=== PATIENT | female | born 1985 | race Caucasian/White ===

== ENCOUNTER 2024-03-23 08:22 | Outpatient (CLI) | payer BC, SELFPAY | END 2024-03-23 08:23 | disposition home or self-care (01) | LOC: NFLDREF 03-27 14:17 | PROVIDERS: Visit Provider Obstetrics & Gynecology | DX: Z34.92 Encounter for supervision of normal pregnancy, unspecified, second trimester (principal) | CPT/HCPCS: 82951; 82952 ==

== ENCOUNTER 2024-03-24 12:50 | Outpatient (CLI) | payer BC, SELFPAY ==
--- NOTE | 2024-03-24 13:00 | CRLHL7_ITS ---
For Patients: As a result of the Century Cures Act, medical imaging exams and procedure reports are released immediately into your electronic medical record. You may view this report before your referring provider. If you have questions, please contact your health care provider. INDICATION: Hypertension TECHNIQUE: Real time puckett scale imaging of the fetus was performed. COMPARISON: None FINDINGS: Sonographic imaging demonstrates a single living intrauterine gestation. Fetus demonstrates a regular cardiac rate of 147 beats per minute. Fetus has a vertex position. The placenta lies anteriorly. Amniotic fluid volume appears normal and there is a single deepest pocket of 4.3 cm. The estimated weight is 2339gm which lies at the 81st %. BPD 73rd percentile. HC 55th percentile. AC 89th percentile. FL 64th percentile. The fetus was active and demonstrated normal breathing movements. There was normal flexion and extension of the trunk and extremities. IMPRESSION: Normal biophysical profile score 8/8. Sonographic gestational age 34 weeks 0 days and sonographic due date 05/05/2024. Sonographic age 9 days ahead of the clinical age. Estimated weight 81st percentile. Abdominal circumference 89th percentile. Dictated by Tonio Llanes MD @ 03/27/2024 6:51:06 AM (Electronically Signed)
== END 2024-03-24 12:51 | disposition home or self-care (01) ==
LOC: US 12:51
PROVIDERS: Visit Provider Obstetrics & Gynecology
DX: O10.913 Unspecified pre-existing hypertension complicating pregnancy, third trimester (principal); O09.523 Supervision of elderly multigravida, third trimester; Z3A.34 34 weeks gestation of pregnancy
CPT/HCPCS: 76816; 76819

== ENCOUNTER 2024-04-07 07:17 | Outpatient (CLI) | payer BC, SELFPAY ==
--- NOTE | 2024-04-07 07:15 | CRLHL7_ITS ---
For Patients: As a result of the Century Cures Act, medical imaging exams and procedure reports are released immediately into your electronic medical record. You may view this report before your referring provider. If you have questions, please contact your health care provider. Indication: Gestational diabetes mellitus and hypertension Technique: Sonography of the gravid uterus was performed. The study was limited to a standard biophysical profile study as described below Comparison: March 24, 2020 Findings: There is a single living intrauterine gestation that is vertex. The cervix was not specifically visualized on this study. The single deepest pocket is 4.1 centimeters. The placenta is anterior. heart rate is 157 beats per minute which is normal The biophysical profile score is 6/8. 0 points were awarded for breathing movements. This means that no breathing movements lasting greater than or equal to 30 seconds was observed during the time course of the study. Impression: Biophysical profile score is 6/8 as described above Dictated by Bryce Lazaro MD @ 04/07/2024 8:59:29 AM (Electronically Signed)
--- OUTSIDE RECORDS SUMMARY | 2024-04-07 07:19 | XMS_ITS | Clinical Summary ---
Author Organization [facility] Address [address] [place] [address] Care Team Providers Care House Servant Name Role Phone Unavailable Primary Care Provider Unavailabl e Source Comments Patient records contain information from all sites at [facility]. For routine questions regarding patient records, call [phone] during business hours, M-F 8:00 AM - 5:00 PM Central Time. Record requests for emergency care only can be directed to [phone] at any time.[facility] Allergies No known active allergies Medications Medication Sig Dispensed Refills Start Date End Date Status NO122/IRON/FOLIC ACID ( MULTI ORAL) Take by mouth. Active acetaminophen (TYLENOL) 500 mg tablet Take 1,000 mg by mouth every 6 (six) hours as needed. 05/14/2018 Active ferrous sulfate 325 mg (65 mg iron) tablet Take 325 mg by mouth daily. Active fluticasone propionate (Allergy Relief, fluticasone,) 50 mcg/actuation nasal spray Administer 1 spray into each nostril daily. As needed Active magnesium gluconate (Mag-G) 27 mg (500 mg) tablet Take 500 mg by mouth daily with breakfast. Active omega-3 fatty acids-fish oil 300-1,000 mg per capsule Take 2 g by mouth daily. Active aspirin [address] tabletIndications:H ypertension Essential Primary Take 1 tablet (81 mg total) by mouth daily. 90 tablet 3 10/07/2023 Active sennosides-docusate sodium (Senna with Docusate Sodium) 8.6-50 mg per tabletIndications:C onstipation Take 1 tablet by mouth 2 (two) times a day as needed for constipation. 60 tablet 1 12/28/2023 Active polyethylene glycol (MIRALAX) 17 gram/dose oral powderIndications:C onstipation Take 17 g by mouth daily. Dissolve each 17 g dose in 240 mL (8 ounces) of beverage. 595 g 3 12/28/2023 Active Active Problems Patient Care Coordination No te Formatting of this note migh t be different from the original. First trimester OB education completed. Pre-reg completed at [facility]. 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 Multigravida Advanced Matern al Age Affecting Management 10/07/2023 Overview: NIPS and carrier screening normal Hypertension Essential Pre-Existing Overview: Chronic hypertension, transitioned to nifedipine at onset of 10/07: Holding nifedipine given relatively low blood pressure, will follow Baseline labs normal. Low-dose aspirin initiated Counseling Sterilization 10/07/2023 Overview: as a result of contraception failure Strongly desires surgical sterilization [ ] Signed Federal tubal sterilization papers later in Obesity Body Mass Index 30-39.9 Adult 10/22/2017 Estimated Date of Delivery Comme nts Yes 05/14/2024 Based on Ultraso und Resolved Problems Problem Noted Date Diagnosed Date Resolved Date Pap Smear Examination 10/07/20232023 Uterine Size Date Discrepancy Third Trimester 04/30/20 18 06/23/2018 Anemia Iron Deficiency 03/04/201805/06 Constipation Slow Transit 03/04/2018 Hyperemesis Gravidarum Mild 10/22/2017 01/19/2018 Examination Other N ormal Third Trimester 09/24/2017 06/23/2018 Encounters Date Type Department Care Team Description 03/03/2024 Orders Only Department of Laboratory Medicine in [place], [place] [address] [place] [address] Cami Adams M.D. Impaired Glucose Tolerance (Primary Dx); Obesity Body Mass Index 30-39.9 Adult; Multigravida Advanced Maternal Age Affecting Management (HCC) 02/23/2024 11:00 AM CDT Routine Department of Obstetrics and Gynecology in [address] [phone] Cami Adams M.D. Dettmann, Heather B, Gustavo Need Vaccine Immunization Tetanus And Diphtheria Toxoids And Pertussis (Primary Dx); Multigravida Advanced Maternal Age Affecting Management (HCC); Hypertension Essential Pre-Existing (HCC) 02/23/2024 10:40 AM CDT - 02/23/2024 11:59 PM CDT Hospital Encounter Department of Laboratory Medicine in [address] [address] Cami Adams M.D. Multigravida Advanced Maternal Age Affecting Management (HCC); Hypertension Essential Pre-Existing (HCC) Discharge Disposition: Home or Self Care 02/23/2024 10:00 AM CDT Silent Schedule Department of Obstetrics and Gynecology in [address] [address] Cami Adams M.D. Multigravida Advanced Maternal Age Affecting Management (HCC); Hypertension Essential Pre-Existing (HCC) 01/20/2024 9:00 AM CDT Routine Department of Obstetrics and Gynecology in [address] [address] Mildred Madrid, MARSHALL, C.N.P. Multigravida Advanced Maternal Age Affecting Management (HCC) (Primary Dx); Hypertension Essential Pre-Existing (HCC); Constipation; Counseling Sterilization Discharge Disposition: Home or Self Care from Last 3 Months Immunizations Name Administration Dates Next Due Influenza, Seasonal, Injectable 06/24/2011,08/31 Influenza, Unspecified 08/31/2008 SARS-COV-2 (COVID-19) - MODERNA(Discontinued) 12/04/2020,11/07/2020 Tdap 02/23/2024,02/16/2018,02/20/2015 influenza vaccine quad (FLUZ ONE/FLUARIX) (6 months and older)(PF) 08/23/2014 Family History Medical History Relation Name Comments No Known Problems Brother 1 No Known Problems Brother 2 No Known Problems Daughter 1 No Known Problems Daughter 2 No Known Problems Daughter 3 No Known Problems Daughter 4 No Known Problems Father No Known Problems Maternal Grandfather Hypertension Maternal Grandmother Chelsy Marie No Known Problems Mother No Known Problems Paternal Grandfather No Known Problems Paternal Grandmother No Known Problems Sister Relation Name Status Comments Brother 1 Alive Brother 2 Alive Daughter 1 Alive Daughter 2 Alive Daughter 3 Alive Daughter 4 Alive Father Alive Maternal Grandfather Alive Maternal Grandmother Chelsy Marie Alive Mother Alive Paternal Grandfather Paternal Grandmother Sister Alive Social History Tobacco Use Types Packs/Day Years Used Date Smoking Tobacco: Never Smokeless Tobacco: Never Tobacco Cessation:Counseling Given: Not Answered Alcohol Use Standard Drinks/Week Comments No 0 (1 standard drink = 0.6 oz pur e alcohol) Overall Financial Resource Strain (CARDIA) Answe r Date Recorded How hard is it for you to pa y for the very basics like food, housing, medical care, and heating? Somewhat hard 09/22/2023 PHQ-2 Answer Date Recorded PHQ-2 Score 0 02/23/2024 Exercise Vital Sign Answer Date Recorde d On average, how many days pe r week do you engage in moderate to strenuous exercise (like a brisk walk)? 3 days 09/22/2023 On average, how many minutes do you engage in exercise at this level? 30 min 09/22/2023 Hunger Vital Sign Answer Date Recorded Within the past 12 months, y ou worried that your food would run out before you got the money to buy more. Never true 09/22/20 23 Within the past 12 months, t he food you bought just didn't last and you didn't have money to get more. Never true 09/22/2023 PRAPARE - Transportation Answer Date Re corded In the past 12 months, has l ack of transportation kept you from medical appointments or from getting medications? No 03/2023 In the past 12 months, has l ack of transportation kept you from meetings, work, or from getting things needed for daily living? No 09/22/2023 Depression Answer Date Recor ded PHQ-9 Total Score (max 27) 0 02/22 Nutrition Answer Date Recorded On average, how many serving s of fruits and vegetables do you eat per day (serving size is equal to 1 cup or approximately the size of a tennis ball)? 0-2 09/22/2023 Dental Answer Date Recorded Dental: Regular Dentist Yes 09/22/20 Employment Answer Date Recorded Employment status Employed and actively working without restrictions 09/22/2023 Housing Stability Answer Date Recorded What is your living situation today? I have a [facility] place to live 09/22/2023 Education Answer Date Recorded What is the highest level of school you have completed or the highest degree you have received? High school graduate 09/22/2023 Estimated Date of Delivery Comme nts Yes 05/14/2024 Based on Ultraso und Sex and Gender Information Value Date Recorded Sex Assigned at Female 09/22/2023 9:11 AM SPACECRAFT SYSTEMS ENGINEER Gender Identity Female 09/22/2023 9:11 AM SPACECRAFT SYSTEM[employer] ENGINEER Sexual Orientation Straight 09/22/2023 9: 11 AM SPACECRAFT SYSTEMS ENGINEER Last Filed Vital Signs Vital Sign Reading Time Taken Comments Blood Pressure 109/66 02/23/2024 10:54 AM CDT Pulse 91 02/23/2024 10:54 AM CDT Temperature 36.8 ??C (98.2 ??F) 06/23/2018 1:56 PM CD T Respiratory Rate 16 06/23/2018 1:56 PM CDT Oxygen Saturation 99% 10/07/2023 2:06 PM SPACECRAFT SYSTEMS ENGINEER Inhaled Oxygen Concentration - - Weight 92.8 kg (204 lb 9.4 oz) 02/23/2024 10:54 AM CDT Height 163 cm (5' 4.17) 06/23/2018 1:56 PM CDT Body Mass Index 34.93 06/23/2018 1:56 PM CDT Plan of Treatment Health Maintenance Due Date Last Done Comments Lipid (Cholesterol) Screening 1985 Hepatitis B Vaccines (1 of 3 - 19+ 3-dose series) 2004 COVID-19 Vaccine ( season) 2023 07/16/2022, 10/08/2021, 12/04/2020, Additional history exists Fasting Glucose for Diabetes Screening 10/14/2024 10/14/2023, 01/21/2022, 02/18/2018 Office Visit for Blood Pressure Check / Re-check 02/22/2025 02/23/2024 Cervical Cancer Screening 10/07/20282022, 10/07/2023, 10/22/2017 DTaP,Tdap,and Td Vaccines (4 - Td or Tdap) 02/22/2034 02/23/2024, 02/16/2018, 02/20/2015 Influenza Vaccine Completed 06/30/2023, , 07/02/2021, Additional history exists HIV Screening Completed 10/14/2023, 10/22/2017 Hepatitis C Screening Completed 10/14/2023 Depression Screening (Annual PHQ-2) Completed 02/23/2024 HPV Vaccines Aged Out No longer eligi ble based on patient's age to complete this topic Pneumococcal vaccine (0-64 years) Aged Out No longer eligible based on patient's age to complete this topic RSV vaccine - (32-36 weeks) or 60+ years (No Doses Required) Completed Procedures Procedure Name Priority Date/Time Associated Diagnosis Comments CBC WITHOUT DIFFERENTIAL, B Routine 02/23/2024 11:58 AM CDT Multigravida Advanced Maternal Age Affecting Management (HCC) Hypertension Essential Pre-Existing (HCC) GLUCOSE RONNIE, 1HR, S/P Routine 02/23/2024 11:58 AM CDT Multigravida Advanced Maternal Age Affecting Management (HCC) Hypertension Essential Pre-Existing (HCC) SYPHILIS TOTAL AB W/ REFLEX S Routine 02/23/2024 11:58 AM CDT Multigravida Advanced Maternal Age Affecting Management (HCC) Hypertension Essential Pre-Existing (HCC) US OB GROWTH MUNGUIA RAD - Routine (most inpatients and all outpatients) 02/23/2024 10:39 AM CDT Multigravida Advanced Maternal Age Affecting Management (HCC) Hypertension Essential Pre-Existing (HCC) HEMOGLOBIN A1C, B Routine 10/14/2023 11: 22 AM SPACECRAFT SYSTEM[employer] ENGINEER Examination Test With Positive Result (HCC) HCV AB SCRN , S Routine 10/14/2023 11:22 AM SPACECRAFT SYSTEMS ENGINEER Examination Test With Positive Result (HCC) HIV-1/-2 AG AND AB SCRN, PLASMA Routine 10/14/2023 11:22 AM SPACECRA[employer] SYSTEMS ENGINEER Examination Test With Positive Result (HCC) HPV WITH GENOTYPING, PCR, THINPREP Routine 10/07/2023 2:43 PM SPACE[employer] SYSTEMS ENGINEER from Last 3 Months or Most Recently Relevant to Health Maintenance Results * Syphilis Total Antibody with Reflex, Serum (02/23/2024 11:58 AM CDT) Syphilis Total Ab w/ Reflex Nonreactive Nonreactive 02/24/2024 1:[address] [facility] Comment: No serologic evidence of infection with T. pallidum (syphilis). ??Repeat testing may be considered in patients with suspected acute or primary syphilis in 2-4 weeks. For additional information on interpretation of the syphilis reverse algorithm and results, see: [email or web address] Blood (Blood, Venous) 02/23/2024 11:58 AM CDT 02/24/2024 11:19 AM CDT Cami Adams M.D. LAB BLOOD ADD-ON [facility] [address] [place] [address], [facility] in [address] [address] * Glucose Tolerance Test, 1 hour (02/23/2024 11:58 AM CDT) Pathologist [facility] Glucose Ronnie, 1 Hr, P 183 <140 mg/dL 02/23/2024 6:12 PM CDT OWAT Blood (Blood, Venous) 02/23/2024 11:58 AM CDT 02/23/2024 5:37 PM CDT Cami Adams M.D. LAB BLOOD NON ADD-ON [facility] [address] [place] [address], [place] OWAT [facility] in [place] [address] [place] [address] * (ABNORMAL) CBC without Differential (02/23/2024 11:58 AM CDT) Hemoglobin 11.5(L) 11.6 - 15.0 g/dL 02/23/2024 12:03 PM CDT FB60 Hematocrit 34.6(L) 35.5 - 44.9 % 02/23/2024 12:03 PM CDT FB60 Erythrocytes 3.61(L) 3.92 - 5.13 x10(12)/L 02/23/2024 12:03 PM CDT FB60 MCV 95.8 78.2 - 97.9 fL 02/23/2024 12:03 PM CDT FB60 RBC Distrib Width 13.4 12.2 - 16.1 % 02/23/2024 12:03 PM CDT FB60 Platelet Count 220 157 - 371 x10(9)/L 02/23/2024 12:03 PM CDT FB60 Leukocytes 8.0 3.4 - 9.6 x10(9)/L 02/23/2024 12:03 PM CDT FB60 Blood (Blood, Venous) 02/23/2024 11:58 AM CDT 02/23/2024 11:59 AM CDT Cami Adams M.D. LAB BLOOD ADD-ON [facility] [address] [place] [address], [place] FB60 [facility] in [place] [address] [place] [address] * US OB Growth Munguia (02/23/2024 10:39 AM CDT) Anatomical Region Laterality Modality Body, Ultrasound OB RST LOS, Ultrasound ARZ LOS N/A Ultrasound Impressions 02/23/2024 8:04 PM CDT Single intrauterine at 28 w 3 d gestation. Based upon multiple biometric measurements, EFW is 1542 g with growth at the 94th percentile consistent with large for gestational age fetus. ??Fetus is in breech presentation. ??Amniotic fluid assessment is normal. ??Placenta is anterior. Narrative 02/23/2024 8:04 PM CDT EXAM: US OB GROWTH MUNGUIA COMPARISON: None TECHNIQUE: Transabdominal Only FINDINGS: Number of Gestations: Single Established Gestational age: 28 w 3 d, ZACHARY: ??05/14/2024 Presentation: Breech Placenta Location: Anterior Amniotic Fluid: Normal Maximum Vertical Pocket: 3.3 cm Age by current ultrasound measurements: 29 w 4 d Estimated weight: 1542 g. EFW %: 93.6 % heart rate: 143 Motion: Normal. Stomach: Normal. Kidneys: Normal. Bladder: Normal. BIOMETRIC PARAMETERS: ?? BPD: 28 w 1 d 28.1 % HC: 29 w 4 d 51.4 % AC: 31 w 0 d 97.2 % FL: 29 w 6 d 74.6 % HC/AC ratio: 1.00 Uterus: No unexpected findings. Right ovary/adnexa: Not Evaluated. Left ovary/adnexa: Not Evaluated. Cervix: Subjectively normal by Transabd evaluation only. Procedure Note Esperanza Steven M.D. - 02/23/2024 EXAM: US OB GROWTH MUNGUIA COMPARISON: None TECHNIQUE: Transabdominal Only FINDINGS: Number of Gestations: Single Established Gestational age: 28 w 3 d, ZACHARY: 05/14/2024 Presentation: Breech Placenta Location: Anterior Amniotic Fluid: Normal Maximum Vertical Pocket: 3.3 cm Age by current ultrasound measurements: 29 w 4 d Estimated weight: 1542 g. EFW %: 93.6 % heart rate: 143 Motion: Normal. Stomach: Normal. Kidneys: Normal. Bladder: Normal. BIOMETRIC PARAMETERS: BPD: 28 w 1 d 28.1 % HC: 29 w 4 d 51.4 % AC: 31 w 0 d 97.2 % FL: 29 w 6 d 74.6 % HC/AC ratio: 1.00 Uterus: No unexpected findings. Right ovary/adnexa: Not Evaluated. Left ovary/adnexa: Not Evaluated. Cervix: Subjectively normal by Transabd evaluation only. IMPRESSION: Single intrauterine at 28 w 3 d gestation. Based upon multiple biometric measurements, EFW is 1542 g with growth atthe 94th percentile consistent with large for gestational age fetus.Fetus is in breech presentation. Amniotic fluid assessment is normal.Placenta is anterior. Cami Adams M.D. IMG OB US PROCEDURES * Hepatitis C Virus Antibody Screen (10/14/2023 11:22 AM SPACECRAFT SYSTEMS ENGINEER) HCV Ab Scrn , S Negative Negative 10/15/2023 9:05 AM SPACECRAFT SYSTEMS ENGINEER [facility] Comment:Fihjia-wk-gmdhmv rat io is <1.00. Blood (Blood, Venous) 10/14/2023 11:22 AM SPACECRA[employer] SYSTEMS ENGINEER 10/15/2023 7:43 AM SPACECRAFT SYSTEMS ENGINEER Neto Parson M.D. LAB MICROBIOLOGY - B LOOD ORDERABLES [facility] [address] [place] [address] [facility] [address] [place] [address] * HIV-1/-2 Ag and Ab Scrn, Plasma (10/14/2023 11:22 AM SPACECRAFT SYSTEMS ENGINEER) HIV Ag/Ab Scrn, P Negative Negative 10/15/2023 12:18 PM SPACE[employer] SYSTEMS ENGINEER [facility] Comment: Negative result does not rule out HIV infection. If exposure to HIV infection occurred <14 days ago, contact the laboratory to request addition of HIV-1/HIV-2 RNA detection , Plasma (HPP12). HIV-1 p24 Ag Scrn, P Negative Negative 10/15/2023 12:18 PM SPACECRAFT SYSTEMS ENGINEER [facility] Comment: Negative result does not rule out HIV infection. If exposure to HIV infection occurred <14 days ago, contact the laboratory to request addition of HIV-1/HIV-2 RNA detection , Plasma (HPP12). HIV-1 Ab Scrn, P Negative Negative 10/15/2023 12:18 PM SPACECRAFT SYSTEMS ENGINEER [facility] Comment: Negative result does not rule out HIV infection. If exposure to HIV infection occurred <14 days ago, contact the laboratory to request addition of HIV-1/HIV-2 RNA detection , Plasma (HPP12). HIV-2 Ab Scrn, P Negative Negative 10/15/2023 12:18 PM SPACECRAFT SYSTEMS ENGINEER [facility] Comment: Negative result does not rule out HIV infection. If exposure to HIV infection occurred <14 days ago, contact the laboratory to request addition of HIV-1/HIV-2 RNA detection , Plasma (HPP12). Blood (Blood, Venous) 10/14/2023 11:22 AM SPACECRAFT SYSTEMS ENGINEER 10/15/2023 10:34 AM SPACECRAFT SYSTEMS ENGINEER Neto Parson M.D. LAB MICROBIOLOGY - B LOOD ORDERABLES Performing Organization Address [facility]/ZIP Co de Phone Number [facility] [address] [place] [address], [facility] in [address] [address] * Hemoglobin A1c (10/14/2023 11:22 AM SPACECRAFT SYSTEMS ENGINEER) Hemoglobin A1c, B 5.4 4.2 - 5.6 % 10/14/2023 1:38 PM SP[employer] SYSTEMS ENGINEER OWAT Blood (Blood, Venous) 10/14/2023 11:22 AM SPACECRAFT SYSTEMS ENGINEER 10/14/2023 12:37 PM SP[employer]FT SYSTEMS ENGINEER Neto Parson M.D. LAB BLOOD ADD-ON Performing Organization Address City/[facility] Co de Phone Number [facility] [address] [place] [address], [place] OW[place] [facility] in [place] [address] [place] [address] * HPV with Genotyping, PCR, ThinPrep (10/07/2023 2:43 PM SPACECRA[employer] SYSTEMS ENGINEER) HPV with Genotyping, ThinPrep, PCR Negative Negative 10/08/2023 3:48 PM SPACECRAFT SYSTEMS ENGINEER [facility] Comment: Negative for high risk HPV by nucleic acid amplification. ??The following high risk HPV types were not detected: 16, 18, 31, 33, 35, 39, 45, 51, 52, 56, 58, 59, 66, and 68 This result does not rule out HPV in the patient, as the sensitivity of the test depends on the timing of the specimen collection and the quality of the specimen. Result should be correlated with patient's history, clinical presentation, and [employer] cytology report. 10/07/2023 2:43 PM SPACECRAFT SYSTEMS ENGINEER 10/08/2023 7:14 AM SPACECRAFT SYSTEMS ENGINEER Neto Parson M.D. LAB MICROBIOLOGY - G ENERAL ORDERABLES [facility] [address] [place] [address], [facility] [address] [address] from Last 3 Months or Most Recently Relevant to Health Maintenance
--- OUTSIDE RECORDS SUMMARY | 2024-04-07 07:19 | XMS_ITS ---
Author Organization [facility] Address [address] [place] [address] Care Team Providers Care Pattern Changer Name Role Phone Unavailable Unavailable Unavailable Surgery Details Not on file Complications Check Surgery Details section. Procedure Estimated Blood Loss Check Surgery Details section. Procedure Findings Check Surgery Details section. Procedure Specimens Taken Check Surgery Details section.
--- OUTSIDE RECORDS SUMMARY | 2024-04-07 07:19 | XMS_ITS | Encounter Summary ---
Author Organization [facility] Address [address] [place] [address] Care Team Providers Care Fiber Optic Central Office Installer Name Role Phone Unavailable Primary Care Provider Unavailabl e Encounter Details Date Type Department Care Team (Late st Contact Info) Description 03/03/2024 Orders Only Department of Laboratory Medicine in [place], [place] [address] [place] [address] Cami Adams M.D. [address] [place] [phone] Impaired Glucose Tolerance (Primary Dx); Obesity Body Mass Index 30-39.9 Adult; Multigravida Advanced Maternal Age Affecting Management (HCC) Social History Tobacco Use Types Packs/Day Years Used Date Smoking Tobacco: Never Smokeless Tobacco: Never Alcohol Use Standard Drinks/Week Comments No 0 [...] money to buy more. Never true 09/22/20 Within the past 12 months, t he [...] your living situation today? I have a [facility] place to live 09/22/2023 Education Answer Date Recorded What is the highest level of school you have completed or the highest degree you have received? High school graduate 09/22/2023 Estimated Date of Delivery Comme nts Yes 05/14/2024 Based on Ultraso und Sex and Gender Information Value Date Recorded Sex Assigned at Female 09/22/2023 9:11 AM BIODIESEL PROCESSING TECHNICIAN Gender Identity Female 09/22/2023 9:11 AM BIODIESEL PROCESSING TECHNICIAN Sexual Orientation Straight 09/22/2023 9: 11 AM BIODIESEL PROCESSING TECHNICIAN documented as of this encounter Plan of Treatment Scheduled Orders Name Type Priority Associated Diagnoses Orde r Schedule Glucose Tolerance, 3 Hours Lab Routine Impaired Glucose Tolerance Obesity Body Mass Index 30-39.9 Adult Multigravida Advanced Maternal Age Affecting Management (HCC) Expected: 03/03/2024, Expires: 06/03/2025 documented as of this encounter Visit Diagnoses Diagnosis Impaired Glucose Tolerance- Primary Obesity Body Mass Index 30-39.9 Adult Multigravida Advanced Maternal Age Affecting Management (HCC) documented in this encounter Additional Health Concerns Assessment Noted Time PHQ-9 Depression Total Score: 0 05/08/20 24 10:57 AM CDT documented as of this encounter
--- OUTSIDE RECORDS SUMMARY | 2024-04-07 07:19 | XMS_ITS | Referral Summary ---
Author Organization [facility] Address [address] [place] [address] Care Team Providers Care Learning Support Services Director Name Role Phone Unavailable Primary Care Provider Unavailabl e Source Comments Patient records contain information from all sites at [facility]. For routine questions regarding patient records, call [phone] during business hours, M-F 8:00 AM - 5:00 PM Central Time. Record requests for emergency care only can be directed to [phone] at any time.[facility] Encounters Date Type Department Care Team Description 03/03/2024 Orders Only Department of Laboratory Medicine in [address] [phone] Cami Adams M.D. Impaired Glucose Tolerance (Primary Dx); Obesity Body Mass Index 30-39.9 Adult; Multigravida Advanced Maternal Age Affecting Management (HCC) 02/23/2024 11:00 AM CDT Routine Department of Obstetrics and Gynecology in [address] [phone] Cami Adams M.D. Dettmann, Heather B, R.N. Need Vaccine Immunization Tetanus And Diphtheria Toxoids And Pertussis (Primary Dx); Multigravida Advanced Maternal Age Affecting Management (HCC); Hypertension Essential Pre-Existing (HCC) 02/23/2024 10:00 AM CDT Silent Schedule Department of Obstetrics and Gynecology in [address] [phone] Cami Adams M.D. Multigravida Advanced Maternal Age Affecting Management (HCC); Hypertension Essential Pre-Existing (HCC) 02/23/2024 10:40 AM CDT - 02/23/2024 11:59 PM CDT Hospital Encounter Department of Laboratory Medicine in [address] [phone] Cami Adams M.D. Multigravida Advanced Maternal Age Affecting Management (HCC); Hypertension Essential Pre-Existing (HCC) Discharge Disposition: Home or Self Care 01/20/2024 9:00 AM CDT Routine Department of Obstetrics and Gynecology in [address] [phone] Mildred Madrid APRN CForrestNForrestPForrest Multigravida Advanced Maternal Age Affecting Management (HCC) (Primary Dx); Hypertension Essential Pre-Existing (HCC); Constipation; Counseling Sterilization Discharge Disposition: Home or Self Care from Last 3 Months Allergies No known active allergies Medications Medication [...] trimester OB education completed. Pre-reg completed at [facility]. LMP:07/30/23-approximate EDC:05/05/24 provider:oncology rn FOB involved:Aly Problem Noted Date Diagnosed Date [...] Other N ormal Third Trimester 09/24/2017 06/23/2018 Immunizations Name Administration Dates Next Due Influenza, Seasonal, Injectable 06/24/2011,08/31 Influenza, Unspecified 08/31/2008 SARS-COV-2 (COVID-19) - MODERNA(Discontinued) 12/04/2020,11/07/2020 Tdap 02/23/2024,02/16/2018,02/20/2015 influenza vaccine quad (FLUZ ONE/FLUARIX) (6 months and older)(PF) 08/23/2014 Social History Tobacco Use Types Packs/Day Years [...] your living situation today? I have a [facility] place to live 09/22/2023 Education Answer Date Recorded What is the highest level of school you have completed or the highest degree you have received? High school graduate 09/22/2023 Estimated Date of Delivery Comme nts Yes 05/14/2024 Based on Ultraso und Sex and Gender Information Value Date Recorded Sex Assigned at Female 09/22/2023 9:11 AM CORD SPLICER Gender Identity Female 09/22/2023 9:11 AM CORD SPLICER Sexual Orientation Straight 09/22/2023 9: 11 AM CORD SPLICER Last Filed Vital Signs Vital Sign Reading Time Taken Comments Blood Pressure 109/66 02/23/2024 10:54 AM CDT Pulse 91 02/23/2024 10:54 AM CDT Temperature 36.8 ??C (98.2 ??F) 06/23/2018 1:56 PM CD T Respiratory Rate 16 06/23/2018 1:56 PM CDT Oxygen Saturation 99% 10/07/2023 2:06 PM CORD SPLICER Inhaled Oxygen Concentration - - Weight 92.8 kg (204 lb 9.4 oz) 02/23/2024 10:54 AM CDT Height 163 cm (5' 4.17) 06/23/2018 1:56 PM CDT Body Mass Index 34.93 06/23/2018 1:56 PM CDT Plan of Treatment Not on file Procedures Procedure Name Priority Date/Time Associated Diagnosis Comments CBC WITHOUT DIFFERENTIAL, B Routine 02/23/2024 11:58 AM CDT Multigravida Advanced Maternal Age Affecting Management (HCC) Hypertension Essential Pre-Existing (HCC) GLUCOSE ELIUD, 1HR, S/P Routine 02/23/2024 11:58 AM CDT [...] A1C, B Routine 10/14/2023 11: 22 AM CORD SPLICER Examination Test With Positive Result (HCC) HCV AB SCRN , S Routine 10/14/2023 11:22 AM CORD SPLICER Examination Test With Positive Result (HCC) HIV-1/-2 AG AND AB SCRN, PLASMA Routine 10/14/2023 11:22 AM CORD SPLICER Examination Test With Positive Result (HCC) HPV WITH GENOTYPING, PCR, THINPREP Routine 10/07/2023 2:43 PM CORD SPLICER from Last 3 Months or Most Recently Relevant to Health Maintenance Results * Syphilis Total Antibody with Reflex, Serum (02/23/2024 11:58 AM CDT) Syphilis Total Ab w/ Reflex Nonreactive Nonreactive 02/24/2024 1:04 PM CDT [facility] Comment: No serologic evidence of infection with T. pallidum (syphilis). ??Repeat testing may be considered in patients with suspected acute or primary syphilis in 2-4 weeks. For additional information on interpretation of the syphilis reverse algorithm and results, see: [email or web address] Blood (Blood, Venous) 02/23/2024 11:58 AM CDT 02/24/2024 11:19 AM CDT Cami Adams M.D. LAB BLOOD ADD-ON [facility] [address] [place] [address], [facility] in [address] [address] * Glucose Tolerance Test, 1 hour (02/23/2024 11:58 AM CDT) Glucose Eliud, 1 Hr, P 183 <140 mg/dL 02/23/2024 6:12 PM CDT [facility] Blood (Blood, Venous) 02/23/2024 11:58 AM CDT 02/23/2024 5:37 PM CDT Cami Adams M.D. LAB BLOOD NON ADD-ON [facility] [address] [place] [address], [facility] OWAT [facility] in [place] [address] [place] [address] * (ABNORMAL) CBC without Differential (02/23/2024 11:58 [...] CDT Cami Adams M.D. LAB BLOOD ADD-ON [facility] [address] [place] [address], [place] [id number] [facility] in [place] [address] [place] [address] * US OB Growth Munguia (02/23/2024 10:39 [...] C Virus Antibody Screen (10/14/2023 11:22 AM CORD SPLICER) HCV Ab Scrn , S Negative Negative 10/15/2023 9:[address] [facility] Comment:Hwmbas-pj-[id number] rat io is <1.00. Blood (Blood, Venous) 10/14/2023 11:22 AM CORD SPLICER 10/15/2023 7:43 AM CORD SPLICER Neto Parson M.D. LAB MICROBIOLOGY - B LOOD ORDERABLES [facility] [address] [place] [address] [facility] [address] [place] [address] * HIV-1/-2 Ag and Ab Scrn, Plasma (10/14/2023 11:22 AM CORD SPLICER) HIV Ag/Ab Scrn, P Negative Negative 10/15/2023 12:18 PM CORD SPLICER [facility] Comment: Negative result does not rule out HIV infection. If exposure to HIV infection occurred <14 days ago, contact the laboratory to request addition of HIV-1/HIV-2 RNA detection , Plasma (HPP12). HIV-1 p24 Ag Scrn, P Negative Negative 10/15/2023 12:18 PM CORD SPLICER [facility] Comment: Negative result does not rule out HIV infection. If exposure to HIV infection occurred <14 days ago, contact the laboratory to request addition of HIV-1/HIV-2 RNA detection , Plasma (HPP12). HIV-1 Ab Scrn, P Negative Negative 10/15/2023 12:18 PM CORD SPLICER [facility] Comment: Negative result does not rule out HIV infection. If exposure to HIV infection occurred <14 days ago, contact the laboratory to request addition of HIV-1/HIV-2 RNA detection , Plasma (HPP12). HIV-2 Ab Scrn, P Negative Negative 10/15/2023 12:18 PM CORD SPLICER [facility] Comment: Negative result does not rule out HIV infection. If exposure to HIV infection occurred <14 days ago, contact the laboratory to request addition of HIV-1/HIV-2 RNA detection , Plasma (HPP12). Blood (Blood, Venous) 10/14/2023 11:22 AM CORD SPLICER 10/15/2023 10:34 AM CORD SPLICER Neto Parson M.D. LAB MICROBIOLOGY - B LOOD ORDERABLES [facility] [address] [place] [address], [place] [facility] in [address] [address] * Hemoglobin A1c (10/14/2023 11:22 AM CORD SPLICER) Pathologist [facility] Hemoglobin A1c, B 5.4 4.2 - 5.6 % 10/14/2023 1:38 PM CORD SPLICER OW Blood (Blood, Venous) 10/14/2023 11:22 AM CORD SPLICER 10/14/2023 12:37 PM CORD SPLICER Neto Parson M.D. LAB BLOOD ADD-ON [facility] [address] [place] [address], [place] OW[place] [facility] in [place] [address] [place] [address] * HPV with Genotyping, PCR, ThinPrep (10/07/2023 2:43 PM CORD SPLICER) HPV with Genotyping, ThinPrep, PCR Negative Negative 10/08/2023 3:48 PM CORD SPLICER [facility] Comment: Negative for high risk HPV [...] correlated with patient's history, clinical presentation, and FARM HAND cytology report. 10/07/2023 2:43 PM CORD SPLICER 10/08/2023 7:14 AM CORD SPLICER Neto Parson M.D. LAB MICROBIOLOGY - G ENERAL ORDERABLES [facility] [address] [place] [address], [facility] [address] [place] [id number] from Last 3 Months or Most Recently Relevant to Health Maintenance
--- OUTSIDE RECORDS SUMMARY | 2024-04-07 07:20 | XMS_ITS | Encounter Summary ---
Author Organization [facility] Address [address] [place] [address] Care Team Providers Care Truck Driver Instructor Name Role Phone Unavailable Primary Care Provider Unavailabl e Encounter Details Date Type Department Care Team (Latest Contact Info) Description 02/23/2024 10:00 AM CDT Silent Schedule Department of Obstetrics and Gynecology in [place], [place] [address] [place] [address] Cami Adams M.D. [address] [place] [phone] Multigravida Advanced Maternal Age Affecting Management (HCC); Hypertension Essential Pre-Existing (HCC) Social History Tobacco Use Types Packs/Day [...] your living situation today? I have a [facility] place to live 09/22/2023 Education Answer Date Recorded What is the highest level of school you have completed or the highest degree you have received? High school graduate 09/22/2023 Estimated Date of Delivery Comme nts Yes 05/14/2024 Based on Ultraso und Sex and Gender Information Value Date Recorded Sex Assigned at Female 09/22/2023 9:11 AM BULK MATERIALS HANDLING PLANT OPERATOR Gender Identity Female 09/22/2023 9:11 AM BULK MATERIALS HANDLING PLANT OPERATOR Sexual Orientation Straight 09/22/2023 9: 11 AM BULK MATERIALS HANDLING PLANT OPERATOR documented as of this encounter Plan of Treatment Not on file documented as of this encounter Procedures Procedure Name Priority Date/Time Associated Diagnosis Comments US OB GROWTH MUNGUIA RAD - Routine (most inpatients and all outpatients) 02/23/2024 10:39 AM CDT Multigravida Advanced Maternal Age Affecting Management (HCC) Hypertension Essential Pre-Existing (HCC) documented in this encounter Results * US OB Growth Munguia (02/23/2024 10:39 [...] is normal.Placenta is anterior. Cami Adams M.D. IMKrissy OB US PROCEDURES documented in this encounter Visit Diagnoses Diagnosis Multigravida Advanced Maternal Age Affecting Management (HCC) Hypertension Essential Pre-Existing (HCC) documented in this encounter Additional Health Concerns Assessment Noted Time PHQ-9 Depression Total Score: 0 02/23/20 24 10:57 AM CDT documented as of this encounter
--- OUTSIDE RECORDS SUMMARY | 2024-04-07 07:20 | XMS_ITS | Encounter Summary ---
Author Organization [facility] Address [address] [place] [address] Care Team Providers Care Hotel Front Office Manager Name Role Phone Unavailable Primary Care Provider Unavailabl e Reason for Visit * Reason Comments Nurse Visit 28 week RN education visit * Outpatient (Routine) - Authorized Specialty Diagnoses / Procedures Referred By Ernesto heller Referred To Contact Obstetrics and Gynecology Diagnoses Multigravida Advanced Maternal Age Affecting Management (HCC) Hypertension Essential Pre-Existing (HCC) Cami Adams M.D. [address] [place] [address] [facility] Referral ID Status Reason Start Date Expiration Date V isits Requested Visits Authorized [id number] Authorized 12/28/2023 06/28/2025 3 3 Encounter Details Date Type Department Care Team (Latest Contact Info) Description 02/23/2024 11:00 AM CDT Routine Department of Obstetrics and Gynecology in [address] [place] [address] Cami Adams M.D. [address] [place] [address] Deepa Del Cid RForrestNForrest Need Vaccine Immunization Tetanus And Diphtheria Toxoids [...] your living situation today? I have a [facility] place to live 09/22/2023 Education Answer Date Recorded What is the highest level of school you have completed or the highest degree you have received? High school graduate 09/22/2023 Estimated Date of Delivery Comme nts Yes 05/14/2024 Based on Ultraso und Sex and Gender Information Value Date Recorded Sex Assigned at Female 09/22/2023 9:11 AM INSERTING PRESS OPERATOR Gender Identity Female 09/22/2023 9:11 AM INSERTING PRESS OPERATOR Sexual Orientation Straight 09/22/2023 9: 11 AM INSERTING PRESS OPERATOR documented as of this encounter Last Filed Vital Signs Vital Sign Reading Time Taken Comments Blood Pressure 109/66 02/23/2024 10:54 AM CDT Pulse 91 02/23/2024 10:54 AM CDT Temperature - - Respiratory Rate - - Oxygen Saturation - - Inhaled Oxygen Concentration - - Weight 92.8 kg (204 lb 9.4 oz) 02/23/2024 10:54 AM CDT Height - - Body Mass Index 34.93 06/23/2018 1:56 PM CDT documented in this encounter Progress Notes * Deepa Del Cid, RForrestN. - 02/23/2024 11:00 AM CDT S: Patient states she is feeling good. She has not had cramping, has not had nausea, has not had vomiting, has not had vaginal bleeding, leaking of fluid, or contractions. She stated movement is present and active. REVIEW OF SYSTEMS: General: No fever, chills, fatigue, unintentional weight loss, or weight gain HEENT: No sore throat, nasal congestion, changes in vision or changes in hearing Cardiovascular: No chest pain, irregular heartbeat or racing heart Respiratory: No shortness of breath, cough, or wheezing Gastrointestinal: No nausea, vomiting, diarrhea, constipation or abdominal pain Genitourinary: No leaking urine, pain with urination, burning with urination, irregular vaginal bleeding, heavy periods, painful periods, abnormal vaginal discharge or leaking gas or stool Skin: No rashes or skin lesions Breasts: No masses or lumps, positive for discharge from the nipples Neuro: No difficulty with memory, numbness, tingling, or falls Psych: No anxiety, depression or difficulty sleeping Endocrine: No excessive thirst, hair loss, intolerance of heat or cold A/P: 38 y.o. at 28w3d who presents for OB follow up and third trimester OB education. 1.) 28 week labs were ordered and obtained 02/23/24. We will contact her with results. 2.) TDAP was administered 02/23/24. She tolerated this well. 3.) Depression screening was completed and her PHQ-9 score was 0, answering no to question 9. Good communication encouraged. Advised to contact us with any worsening mood concerns. 4.) movement monitoring, labor signs, signs and symptoms of preeclampsia, postterm counseling, and depression were all discussed in detail. 5.) Anesthesia plans discussed. She is planning on vaginal. Non-medication pain relief options werealso discussed in detail. 6.) [place] education was discussed in detail, including safe sleeping positions/ SIDS, medications, and screening. [place] provider is front line supervisor. She is having a boy. She is planning to breastfeed. Signs and symptoms of mastitis were also reviewed. 7.) family planning was reviewed and she is planning on unsure at this time. 8.) Patient is planning on transferring care to [place] and delivering there. Made her next appointment there, 03/23/24. 2nd/3rd Trimester education provided today using the ACOG list of recommended antepartum education topics and in accordance with [facility] guidelines. Patient states understanding to all topics presented. All questions answered during appointment. Written information regarding topics presented provided for patient to take home. Please see education tab for further details about topics addressed. documented in this encounter Plan of Treatment Not on file documented as of this encounter Visit Diagnoses Diagnosis Need Vaccine Immunization Tetanus And Diphtheria Toxoids And Pertussis- Primary Multigravida Advanced Maternal Age Affecting Management (HCC) Hypertension Essential Pre-Existing (HCC) documented in this encounter Additional Health Concerns Assessment Noted Time PHQ-9 Depression Total Score: 0 02/23/20 10:57 AM CDT documented as of this encounter
--- OUTSIDE RECORDS SUMMARY | 2024-04-07 07:20 | XMS_ITS | Clinical Summary ---
Author Organization [facility] Address [place], [place] [address] Care Team Providers Care Prepared Foods Supervisor Name Role Phone [facility] Allergies No known active allergies Medications Medication Sig Dispensed Refills Start Date End Date Status acetaminophen (TYLENOL EXTRA STRGTH) 500 mg tabletIndications:39 weeks gestation of Take 2 tablets by mouth every 6 hours if needed. Max acetaminophen dose: 4000mg in 24 hrs. 100 tablet 05/14/2018 Active sennosides (SENNA) 8.6 mg tabletIndications:39 weeks gestation of Take 1-2 tablets by mouth 2 times daily if needed. 60 tablet 05/14/2018 Active ibuprofen (ADVIL; MOTRIN) 600 mg tabletIndications:39 weeks gestation of Take 1 tablet by mouth every 6 hours if needed for Pain. Maximum of 3200 mg in 24 hours. 100 tablet 05/14/2018 Active Estarylla 0.25-35 mg-mcg tablet Take 1 Tablet by mouth once daily. 01/20/2021 Active omeprazole 20 mg tabletIndications:Ac [place] right-sided low back pain without sciatica Take 1 Tablet (20 mg) by mouth once daily before a meal. 10 Tablet 01/21/2022 Active ondansetron (ZOFRAN ODT) 4 mg disintegrating tabletIndications:Ac [place] right-sided low back pain without sciatica Place 1 Tablet (4 mg) on the tongue every 8 hours if needed for Nausea/Vomiting. 30 Tablet 01/21/2022 Active Active Problems Problem Noted Date Diagnosed Date 39 weeks gestation of 05/12/2018 Obesity (BMI 30-39.9) 05/12/2018 Slow transit constipation 05/12/2018 Comments Yes Social History Tobacco Use Types Packs/Day Years Used Date Smoking Tobacco: Never Smokeless Tobacco: Never Alcohol Use Standard Drinks/Week Comments No 0 (1 standard drink = 0.6 oz pur e alcohol) Comments Yes Sex and Gender Information Value Date Recorded Sex Assigned at Not on file Gender Identity Not on file Sexual Orientation Not on file Obstetrics History Para Term AB IAB SAB Ectopic Multiple Livin g Live Births 5 4 4 0 0 0 0 0 4 4 Date Outcome GA Total Labor Labor/2nd/3rd Weight Sex Type Anes PTL Padmini A1 A5 Name Clin 2001 Term 3.17 kg (7 lb) F Vag Livin g 2008 Term 3.17 kg (7 lb) F Vag Livin g 2014 Term 3.17 kg (7 lb) F Vag Livin g 2017 Term 40w 4d 3.61 kg (7 lb 15.3 oz) F Vag Epidur al N Livin g 9 9 SLIM Juan Manuel,BG JAKUB Wang Complications:None Delivery [facility] Current Summary Episode Dates Number of Fetuses Estimated Date of Delivery 2023 - Present (04/07/2024) Unknown Last Filed Vital Signs Vital Sign Reading Time Taken Comments Blood Pressure 154/106 01/21/2022 8:00 PM CDT Pulse 103 01/21/2022 6:16 PM CDT Temperature 37.4 ??C (99.3 ??F) 01/21/2022 6:16 PM CD T Respiratory Rate 16 01/21/2022 6:16 PM CDT Oxygen Saturation 98% 01/21/2022 6:16 PM CDT Inhaled Oxygen Concentration - - Weight 95.3 kg (210 lb) 01/21/2022 6:16 PM CDT Height 160 cm (5' 3) 05/12/2018 9:48 AM CDT Body Mass Index 37.2 05/12/2018 9:48 AM CDT Plan of Treatment Upcoming Encounters Date Type Department Care Team (Late st Contact Info) Description 05/05/2024 Hospital Encounter [facility] [address] [place] [address] Neto Parson MD [address] [address] [place] [address] Health Maintenance Due Date Last Done Comments Tdap 1996 Depression screening for age 12+ 1997 HIV for age 15-65 2000 BMI (ht and wt on same day) for age 18+ 2003 Hepatitis C screening for ag e 18-79 2003 Tetanus booster 2005 Pap test for age 21-65 2006 COVID-19 vaccine series ( season) 2023 10/08/2021, 12/04/2020, 11/07/2020 Influenza for age 9-49 06/18/2024 Pneumococcal series for age 6-64 Aged Out No longer eligible b ased on patient's age to complete this topic Advance Directives * Full Code (Latest Code Status on File) Date Activated Date Inactivated Comments 05/12/2018 12:15 PM 05/14/2018 1:40 PM Care Teams Prepared Foods Supervisor Relationship Specialty Start Date End Date [address] [place] [address] PCP - General 09/05/21
--- OUTSIDE RECORDS SUMMARY | 2024-04-07 07:20 | XMS_ITS | Encounter Summary ---
Author Organization [facility] Address [address] [place] [address] Care Team Providers Care Hat Body Sorter Name Role Phone Unavailable Primary Care Provider Unavailabl e Reason for Visit * Reason Comments Routine Visit 23w 4d * Outpatient (Routine) - Authorized Specialty Diagnoses / Procedures Referred By Ernesto heller Referred To Contact Obstetrics and Gynecology Diagnoses Multigravida Advanced Maternal Age Affecting Management (HCC) Hypertension Essential Pre-Existing (HCC) Cami Adams M.D. [address] [place] [address] [facility] Referral ID Status Reason Start Date Expiration Date V isits Requested Visits Authorized [id number] Authorized 12/28/2023 06/28/2025 3 3 Encounter Details Date Type Department Care Team (Latest Contact Info) Description 01/20/2024 9:00 AM CDT Routine Department of Obstetrics and Gynecology in [address] [address] Mildred Madrid APRN, C.N.P. [address] [place] [address] Multigravida Advanced Maternal Age Affecting Management (HCC) (Primary Dx); Hypertension Essential Pre-Existing (HCC); Constipation; Counseling Sterilization Discharge Disposition: Home or Self Care Social History Tobacco Use Types Packs/Day Years [...] PHQ-2 Answer Date Recorded PHQ-2 Score 0 09/22/2023 Exercise Vital Sign Answer Date Recorde d [...] Recor ded PHQ-9 Total Score (max 27) 1 09/22 Nutrition Answer Date Recorded On average, how many serving s of fruits and vegetables do you eat per day (serving size is equal to 1 cup or approximately the size of a tennis ball)? 0-2 09/22/2023 Dental Answer Date Recorded Dental: Regular Dentist Yes 09/22/20 23 Employment Answer Date Recorded Employment status Employed and actively working without restrictions 09/22/2023 Housing Stability Answer Date Recorded What is your living situation today? I have a [facility] place to live 09/22/2023 Education Answer Date Recorded What is the highest level of school you have completed or the highest degree you have received? High school graduate 09/22/2023 Estimated Date of Delivery Comme nts Yes 05/14/2024 Based on Ultraso und Sex and Gender Information Value Date Recorded Sex Assigned at Female 09/22/2023 9:11 AM CONCRETE MASON Gender Identity Female 09/22/2023 9:11 AM CONCRETE MASON Sexual Orientation Straight 09/22/2023 9: 11 AM CONCRETE MASON documented as of this encounter Last Filed Vital Signs Vital Sign Reading Time Taken Comments Blood Pressure 120/69 01/20/2024 8:49 AM CDT Pulse 82 01/20/2024 8:49 AM CDT Temperature - - Respiratory Rate - - Oxygen Saturation - - Inhaled Oxygen Concentration - - Weight 91.5 kg (201 lb 11.5 oz) 01/20/2024 8:49 AM CDT Height - - Body Mass Index 34.44 06/23/2018 1:56 PM CDT documented in this encounter Progress Notes * Mildred Madrid, MARSHALL, C.N.P. - 01/20/2024 9:00 AM CDT SUBJECTIVE Chief Complaint Patient presents with Routine Visit 23w 4d HISTORY OF PRESENT ILLNESS Bela is a 38 y.o. Patient's last menstrual period was 07/30/2023 (approximate). EstimatedDate of Delivery: 05/14/24 Based on this, her gestational age is 23w4d. She presents to the office today for routine care. She denies any vaginal bleeding, leaking of fluids or contractions. She reports movement that is active. Overall, she is doing well. She has no unusual complaints. She denies any bowel or bladder concerns. Constipation has improved with MiraLAX. No headache or vision changes, and no signs or symptoms ofdepression. She has been struggling with sleep, getting only 2-3 hours some nights. REVIEW OF SYSTEMS Musculoskeletal: Positive for back pain. The following systems were negative: Constitutional, Skin, Eyes, ENT, Respiratory, Cardiovascular, Gastrointestinal, Genitourinary, Hematologic, Neurological, Psychiatric The patient's allergies, current medications and problem list were reviewed and updated as appropriate. OBJECTIVE BP 120/69 (Cuff Size: Large) Pulse 82 Wt 91.5 kg LMP 07/30/2023 (Approximate) BMI 34.44 kg/m?? PHYSICAL EXAM General: She is a well appearing female in no acute distress. HEENT: Hearing vision are grossly intact. Abdomen: Soft and nontender, gravid. Fundal Height 23 cm. heart tones 160 bpm per doptone. Extremities: No peripheral edema bilaterally. ASSESSMENT / PLAN #1 Multigravida Advanced Maternal Age Affecting Management (HCC) Overview: NIPS and carrier screening normal #2 Hypertension Essential Pre-Existing (HCC) Overview: Chronic hypertension, transitioned to nifedipine at onset of 10/07: Holding nifedipine given relatively low blood pressure, will follow Baseline labs normal. Low-dose aspirin initiated #3 Constipation Overview: Notes significant improvement in constipation symptoms with use of MiraLax. #4 Counseling Sterilization Overview: as a result of contraception failure Strongly desires surgical sterilization [ ] Signed Federal tubal sterilization papers later in Other orders - Obstetrics and Gynecology office visit (clinic) Satisfactory exam today. Signs and symptoms of labor and precautions werereviewed. She will continue monitoring movement. She is scheduled for routine follow-up, US, education and lab work on 02/22/2024. She will contact our obstetrics team if she has any concerns or questions prior to her next visit. All questions have been answered and those present are in agreement with this plan. Anjel Lewis Student from the [facility] Physician Documentation Analyst Program was present throughoutthis visit. He participated in collection of history, portions of physical exam, and/or developmentof plan of care under my direct supervision. Mildred Madrid APRN, C.N.P. Patient Education Ready to learn, no apparent learning barriers were identified; learning preferences include listening. Explained diagnosis and treatment plan; patient expressed understanding of the content. documented in this encounter Plan of Treatment Not on file documented as of this encounter Visit Diagnoses Diagnosis Multigravida Advanced Maternal Age Affecting Management (HCC)- Primary Hypertension Essential Pre-Existing (HCC) Constipation Counseling Sterilization documented in this encounter Additional Health Concerns Assessment Noted Time PHQ-9 Depression Total Score: 1 09/22/20 23 9:44 AM CONCRETE MASON documented as of this encounter
--- OUTSIDE RECORDS SUMMARY | 2024-04-07 07:20 | XMS_ITS | Encounter Summary ---
Author Organization [facility] Address [address] [place] [address] Care Team Providers Care Freight Rate Specialist Name Role Phone Unavailable Primary Care Provider Unavailabl e Encounter Details Date Type Department Care Team (Latest Contact Info) Description 02/23/2024 10:40 AM CDT - 02/23/2024 11:59 PM CDT Hospital Encounter Department of Laboratory Medicine in [place], [place] [address] [facility] [place] [phone] Cami Adams M.D. [address] [place] [phone] Multigravida Advanced Maternal Age Affecting Management (HCC); Hypertension Essential Pre-Existing (HCC) Discharge Disposition: Home or Self Care Social [...] your living situation today? I have a [facility] place to live 09/22/2023 Education Answer Date Recorded What is the highest level of school you have completed or the highest degree you have received? High school graduate 09/22/2023 Estimated Date of Delivery Comme nts Yes 05/14/2024 Based on Ultraso und Sex and Gender Information Value Date Recorded Sex Assigned at Female 09/22/2023 9:11 AM ACQUISITION ADVISOR Gender Identity Female 09/22/2023 9:11 AM ACQUISITION ADVISOR Sexual Orientation Straight 09/22/2023 9: 11 AM ACQUISITION ADVISOR documented as of this encounter Medications at Time of Discharge Medication Sig Dispensed Refills Start Date End Date acetaminophen (TYLENOL) 500 mg tablet Take 1,000 mg by mouth every 6 (six) hours as needed. 05/14/[address] tabletIndications:Hyper tension Essential Primary Take 1 tablet (81 mg total) by mouth daily. 90 tablet 3 10/07/2023 ferrous sulfate 325 mg (65 mg iron) tablet Take 325 mg by mouth daily. fluticasone propionate (Allergy Relief, fluticasone,) 50 mcg/actuation nasal spray Administer 1 spray into each nostril daily. As needed magnesium gluconate (Mag-G) 27 mg (500 mg) tablet Take 500 mg by mouth daily with breakfast. omega-3 fatty acids-fish oil 300-1,000 mg per capsule Take 2 g by mouth daily. polyethylene glycol (MIRALAX) 17 gram/dose oral powderIndications:Const ipation Take 17 g by mouth daily. Dissolve each 17 g dose in 240 mL (8 ounces) of beverage. 595 g 3 12/28/2023 NO122/IRON/FOLIC ACID ( MULTI ORAL) Take by mouth. sennosides-docusate sodium (Senna with Docusate Sodium) 8.6-50 mg per tabletIndications:Const ipation Take 1 tablet by mouth 2 (two) times a day as needed for constipation. 60 tablet 1 12/28/2023 documented as of this encounter Miscellaneous Notes * Result Encounter Note - Cami Adams M.D. - 03/03/2024 7:53 AM CDT Please notify patient that her 1-hour glucose screen was abnormal at 183. For this she should undergo 3 hour test. Order in Epic; please assist patient in scheduling documented in this encounter Plan of Treatment Not on file documented as of this encounter Procedures Procedure Name Priority Date/Time Associated Diagnosis Comments SYPHILIS TOTAL AB W/ REFLEX S Routine 02/23/2024 11:58 AM CDT Multigravida Advanced Maternal Age Affecting Management (HCC) Hypertension Essential Pre-Existing (HCC) GLUCOSE ELIUD, 1HR, S/P Routine 02/23/2024 11:58 AM CDT Multigravida Advanced Maternal Age Affecting Management (HCC) Hypertension Essential Pre-Existing (HCC) CBC WITHOUT DIFFERENTIAL, B Routine 02/23/2024 11:58 AM CDT Multigravida Advanced Maternal Age Affecting Management (HCC) Hypertension Essential Pre-Existing (HCC) documented in this encounter Results * Syphilis Total Antibody with Reflex, Serum (02/23/2024 11:58 AM CDT) Pathologist [facility] Syphilis Total Ab w/ Reflex Nonreactive Nonreactive 02/24/2024 1:04 PM CDT [facility] Comment: No serologic evidence of infection with T. pallidum (syphilis). ??Repeat testing may be considered in patients with suspected acute or primary syphilis in 2-4 weeks. For additional information on interpretation of the syphilis reverse algorithm and results, see: [email or web address] Blood (Blood, Venous) 02/23/2024 11:58 AM CDT 02/24/2024 11:19 AM CDT Cami Adams M.D. LAB BLOOD ADD-ON [facility] [address] [place] [id number], [facility] in [address] [address] * (ABNORMAL) CBC without Differential (02/23/2024 11:58 AM CDT) Pathologist [facility] Hemoglobin 11.5(L) 11.6 - 15.0 g/dL 02/23/2024 [...] CDT Cami Adams M.D. LAB BLOOD ADD-ON Performing Organization Address City/[facility]/ZIP Co de Phone Number [facility] [address] [place] [address], [place] [id number] [facility] [place] [address] [place] [address] * Glucose Tolerance Test, 1 hour (02/23/2024 11:58 AM CDT) Glucose Eliud, 1 Hr, P 183 <140 mg/dL 02/23/2024 6:12 PM CDT [facility] Blood (Blood, Venous) 02/23/2024 11:58 AM CDT 02/23/2024 5:37 PM CDT Cami Adams M.D. LAB BLOOD NON ADD-ON Performing Organization Address City/[facility]/ZIP Co de Phone Number [facility] [address] [place] [address], [place] [employer] [facility] in [place] [address] [place] [address] documented in this encounter Visit Diagnoses Diagnosis Multigravida Advanced Maternal Age Affecting Management (HCC) Hypertension Essential Pre-Existing (HCC) documented in this encounter Additional Health Concerns Assessment Noted Time PHQ-9 Depression Total Score: 0 02/23/20 24 10:57 AM CDT documented as of this encounter
== END 2024-04-07 07:18 | disposition home or self-care (01) ==
LOC: US 07:17
PROVIDERS: Visit Provider Obstetrics & Gynecology
DX: O10.919 Unspecified pre-existing hypertension complicating pregnancy, unspecified trimester (principal); O24.419 Gestational diabetes mellitus in pregnancy, unspecified control
CPT/HCPCS: 76819

== ENCOUNTER 2024-04-14 10:26 | Outpatient (CLI) | payer BC, SELFPAY ==
[2024-04-15 11:25] LABS: Strep B DNA Probe Negative (Negative)
[2024-04-15 11:45] LABS: Strep B Susceptibility Needed? No
== END 2024-04-14 10:27 | disposition home or self-care (01) ==
LOC: NFLDREF 10:26
PROVIDERS: Visit Provider Obstetrics & Gynecology
DX: O09.523 Supervision of elderly multigravida, third trimester (principal); Z3A.35 35 weeks gestation of pregnancy
CPT/HCPCS: 87081; 87653

== ENCOUNTER 2024-04-19 07:13 | Outpatient (CLI) | payer BC, SELFPAY ==
--- NOTE | 2024-04-19 07:15 | CRLHL7_ITS ---
For Patients: As a result of the Century Cures Act, medical imaging exams and procedure reports are released immediately into your electronic medical record. You may view this report before your referring provider. If you have questions, please contact your health care provider. INDICATION: PRE-EXISTING HTN TECHNIQUE: Real time puckett scale imaging of the fetus was performed. COMPARISON: 03/24/2024, 04/07/2024 FINDINGS: Sonographic imaging demonstrates a single living intrauterine gestation. Fetus demonstrates a regular cardiac rate of 134 beats per minute. Fetus has a vertex position. The placenta lies anteriorly. Amniotic fluid volume appears normal and there is a single deepest pocket of 5.4 cm. The estimated weight is 3099gm which lies at the 70th %. On the prior OB ultrasound dated 03/24/2024 the estimated weight was at the 81st percentile. BPD 76th percentile. HC is 71st percentile. AC 85th percentile. FL 26th percentile. The fetus was active. Absent breathing movements. There was normal flexion and extension of the trunk and extremities. IMPRESSION: Biophysical profile score 6/8. Sonographic gestational age 37 weeks 1 day and sonographic due date of 05/09/2024. Sonographic age is 5 days ahead of the clinical age. Estimated weight 70th percentile. Abdominal circumference 85th percentile. Dictated by Tonio Llanes MD @ 04/20/2024 7:39:54 AM (Electronically Signed)
--- OUTSIDE RECORDS SUMMARY | 2024-04-19 07:16 | XMS_ITS | Encounter Summary ---
Author Organization [facility] Address [address] [place] [address] Care Team Providers Care Medical Clerical Assistant Name Role Phone Unavailable Primary Care Provider Unavailabl e Reason for Visit * Reason Comments Routine Visit 23w 4d * Outpatient (Routine) - Authorized Specialty Diagnoses / Procedures Referred By Ernesto heller Referred To Contact Obstetrics and Gynecology Diagnoses Multigravida Advanced Maternal Age Affecting Management (HCC) Hypertension Essential Pre-Existing (HCC) Cami Adams M.D. [address] [place] [address] [facility] Referral ID Status Reason Start Date Expiration Date V isits Requested Visits Authorized [id number] Authorized 12/28/2023 06/28/2025 3 3 Encounter Details Date Type Department Care Team (Latest Contact Info) Description 01/20/2024 9:00 AM CDT Routine Department of Obstetrics and Gynecology in [address] [phone] Mildred Madrid APRN, C.N.P. [address] [place] [address] Multigravida Advanced Maternal Age Affecting [...] your living situation today? I have a [facility] place to live 09/22/2023 Education Answer Date Recorded What is the highest level of school you have completed or the highest degree you have received? High school graduate 09/22/2023 Estimated Date of Delivery Comme nts Yes 05/14/2024 Based on Ultraso und Sex and Gender Information Value Date Recorded Sex Assigned at Female 09/22/2023 9:11 AM ITALIAN TEACHER Gender Identity Female 09/22/2023 9:11 AM ITALIAN TEACHER Sexual Orientation Straight 09/22/2023 9: 11 AM ITALIAN TEACHER documented as of this encounter Last Filed [...] this plan. Anjel Lewis Student from the [facility] Physician Hvac/R Instructor Program was present throughoutthis visit. He participated [...] Total Score: 1 09/22/20 23 9:44 AM ITALIAN TEACHER documented as of this encounter
--- OUTSIDE RECORDS SUMMARY | 2024-04-19 07:16 | XMS_ITS | Encounter Summary ---
Author Organization [facility] Address [address] [place] [address] Care Team Providers Care Water Quality Tester Name Role Phone Unavailable Primary Care Provider Unavailabl e Reason for Visit * Reason Comments Nurse Visit 28 week RN education visit * Outpatient (Routine) - Authorized Specialty Diagnoses / Procedures Referred By Ernesto heller Referred To Contact Obstetrics and Gynecology Diagnoses Multigravida Advanced Maternal Age Affecting Management (HCC) Hypertension Essential Pre-Existing (HCC) Cami Adams M.D. [address] [place] [address] [facility] Referral ID Status Reason Start Date Expiration Date V isits Requested Visits Authorized [id number] Authorized 12/28/2023 06/28/2025 3 3 Encounter Details Date Type Department Care Team (Latest Contact Info) Description 02/23/2024 11:00 AM CDT Routine Department of Obstetrics and Gynecology in [address] [place] [address] Cami Adams M.D. [address] [place] [address] Deepa Del Cid RForrestNForrest Need [...] Sex Assigned at Female 09/22/2023 9:11 AM PIGGYBACK CLERK Gender Identity Female 09/22/2023 9:11 AM PIGGYBACK CLERK Sexual Orientation Straight 09/22/2023 9: 11 AM PIGGYBACK CLERK documented as of this encounter Last Filed [...] relief options werealso discussed in detail. 6.) education was discussed in detail, including safe sleeping positions/ SIDS, medications, and screening. provider is admissions manager. She is having a boy. She is planning to breastfeed. Signs and symptoms of mastitis were also reviewed. 7.) family planning was reviewed and she is planning on unsure at this time. 8.) Patient is planning on transferring care to [place] and delivering there. Made her next appointment there, 03/23/24. 2nd/3rd Trimester education provided today using the ACOG list of recommended antepartum education topics and in accordance with [facility] guidelines. Patient states understanding to all topics [...]
--- OUTSIDE RECORDS SUMMARY | 2024-04-19 07:16 | XMS_ITS | Referral Summary ---
Author Organization [facility] Address [address] [place] [address] Care Team Providers Care Red Cap Name Role Phone Unavailable Primary Care Provider Unavailabl e Source Comments Patient records contain information from all sites at [facility]. For routine questions regarding patient records, call [phone] during business hours, M-F 8:00 AM - 5:00 PM Central Time. Record requests for emergency care only can be directed to [phone] at any time.[facility] Encounters Date Type Department Care Team Description 03/03/2024 Orders Only Department of Laboratory Medicine in [address] [phone] Cami Adams M.D. Impaired Glucose Tolerance (Primary Dx); Obesity Body Mass Index 30-39.9 Adult; Multigravida Advanced Maternal Age Affecting Management (HCC) 02/23/2024 11:00 AM CDT Routine Department of Obstetrics and Gynecology in [address] [phone] Cami Adams M.D. Dettmann, Heather B, R.N. Need Vaccine Immunization Tetanus And Diphtheria Toxoids And Pertussis (Primary Dx); Multigravida Advanced Maternal Age Affecting Management (HCC); Hypertension Essential Pre-Existing (HCC) 02/23/2024 10:00 AM CDT Silent Schedule Department of Obstetrics and Gynecology in [address] [phone] Cami Adams M.D. Multigravida Advanced Maternal Age Affecting Management (HCC); Hypertension Essential Pre-Existing (HCC) 02/23/2024 10:40 AM CDT - 02/23/2024 11:59 PM CDT Hospital Encounter Department of Laboratory Medicine in [address] [phone] Cami Adams M.D. Multigravida Advanced Maternal Age Affecting Management (HCC); Hypertension Essential Pre-Existing (HCC) Discharge Disposition: Home or Self Care 01/20/2024 9:00 AM CDT Routine Department of Obstetrics and Gynecology in [address] [phone] Mildred Madrid APRN [facility]rest[facility] Multigravida Advanced Maternal [...] completed. Pre-reg completed at [facility]. 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 I have a [facility] to live 09/22/2023 Education Answer Date Recorded What is the highest level of school you have completed or the highest degree you have received? High school graduate 09/22/2023 Estimated Date of Delivery Comme nts Yes 05/14/2024 Based on Ultraso und Sex and Gender Information Value Date Recorded Sex Assigned at Female 09/22/2023 9:11 AM [facility] [employer] [facility] TECHNICIAN Gender Identity Female 09/22/2023 9:11 AM [facility] TECHNICIAN Sexual Orientation Straight 09/22/2023 9: 11 AM [facility] TECHNICIAN Last Filed Vital Signs Vital Sign Reading Time Taken Comments Blood Pressure 109/66 02/23/2024 10:54 AM CDT Pulse 91 02/23/2024 10:54 AM CDT Temperature 36.8 ??C (98.2 ??F) 06/23/2018 1:56 PM CD T Respiratory Rate 16 06/23/2018 1:56 PM CDT Oxygen Saturation 99% 10/07/2023 2:06 PM [facility] [employer] [facility] TECHNICIAN Inhaled Oxygen Concentration - - Weight 92.8 [...] A1C, B Routine 10/14/2023 11: 22 AM [facility] TECHNICIAN Examination Test With Positive Result (HCC) HCV AB SCRN , S Routine 10/14/2023 11:22 AM [facility] [employer] [facility] TECHNICIAN Examination Test With Positive Result (HCC) HIV-1/-2 AG AND AB SCRN, PLASMA Routine 10/14/2023 11:22 AM [facility] [employer] [facility] TECHNICIAN Examination Test With Positive Result (HCC) HPV WITH GENOTYPING, PCR, THINPREP Routine 10/07/2023 2:43 PM [facility] TECHNICIAN from Last 3 Months or Most Recently [...] the syphilis reverse algorithm and results, see: [email or web address] Blood (Blood, Venous) 02/23/2024 11:58 AM CDT 02/24/2024 11:19 AM CDT Cami Adams M.D. LAB BLOOD ADD-ON [facility] [address] [place] [address], [facility] in [address] [address] * Glucose Tolerance Test, 1 hour (02/23/2024 11:58 AM CDT) Glucose Eliud, 1 Hr, P 183 <140 mg/dL 02/23/2024 6:12 PM CDT [facility] Blood (Blood, Venous) 02/23/2024 11:58 AM CDT 02/23/2024 5:37 PM CDT Cami Adams M.D. LAB BLOOD NON ADD-ON [facility] [address] [place] [address], [facility] OWAT [facility] in [place] [address] [place] [address] * (ABNORMAL) CBC without Differential (02/23/2024 11:58 [...] CDT Cami Adams M.D. LAB BLOOD ADD-ON [facility] [address] [place] [address], [place] FB60 [facility] in [place] [address] [place] [address] * US OB Growth [place] (02/23/2024 10:39 [...] C Virus Antibody Screen (10/14/2023 11:22 AM [facility] TECHNICIAN) HCV Ab Scrn , S Negative Negative 10/15/2023 9:05 AM [facility] TECHNICIAN [facility] Comment:Ikdcpz-hd-vtapky rat io is <1.00. Blood (Blood, Venous) 10/14/2023 11:22 AM [facility] TECHNICIAN 10/15/2023 7:43 AM [facility] TECHNICIAN Neto Parson M.D. LAB MICROBIOLOGY - B LOOD ORDERABLES [facility] [address] [place] [address] [facility] [address] [place] [address] * HIV-1/-2 Ag and Ab Scrn, Plasma (10/14/2023 11:22 AM [facility] TECHNICIAN) HIV Ag/Ab Scrn, P Negative Negative 10/15/2023 12:18 PM [facility] [employer] [facility] TECHNICIAN [facility] Comment: Negative result does not rule out HIV infection. If exposure to HIV infection occurred <14 days ago, contact the laboratory to request addition of HIV-1/HIV-2 RNA detection , Plasma (HPP12). HIV-1 p24 Ag Scrn, P Negative Negative 10/15/2023 12:18 PM [facility] [employer] [facility] TECHNICIAN [facility] Comment: Negative result does not rule out HIV infection. If exposure to HIV infection occurred <14 days ago, contact the laboratory to request addition of HIV-1/HIV-2 RNA detection , Plasma (HPP12). HIV-1 Ab Scrn, P Negative Negative 10/15/2023 12:18 PM [facility] TECHNICIAN [facility] Comment: Negative result does not rule out HIV infection. If exposure to HIV infection occurred <14 days ago, contact the laboratory to request addition of HIV-1/HIV-2 RNA detection , Plasma (HPP12). HIV-2 Ab Scrn, P Negative Negative 10/15/2023 12:18 PM [facility] TECHNICIAN [facility] Comment: Negative result does not rule out HIV infection. If exposure to HIV infection occurred <14 days ago, contact the laboratory to request addition of HIV-1/HIV-2 RNA detection , Plasma (HPP12). Blood (Blood, Venous) 10/14/2023 11:22 AM [facility] TECHNICIAN 10/15/2023 10:34 AM [facility] TECHNICIAN Neto Parson M.D. LAB MICROBIOLOGY - B LOOD ORDERABLES [facility] [address] [place] [address], [place] [facility] in [address] [address] * Hemoglobin A1c (10/14/2023 11:22 AM [facility] TECHNICIAN) Pathologist [facility] [place] Hemoglobin A1c, B 5.4 4.2 - 5.6 % 10/14/2023 1:38 PM [facility] [employer] [facility] TECHNICIAN OW Blood (Blood, Venous) 10/14/2023 11:22 AM [facility] TECHNICIAN 10/14/2023 12:37 PM [facility] TECHNICIAN Neto Parson M.D. LAB BLOOD ADD-ON [facility] [address] [place] [address], [place] OWAT [facility] in [place] [address] [place] [address] * HPV with Genotyping, PCR, ThinPrep (10/07/2023 2:43 PM [facility] TECHNICIAN) HPV with Genotyping, ThinPrep, PCR Negative Negative 10/08/2023 3:48 PM [facility] TECHNICIAN [facility] Comment: Negative for high risk HPV [...] correlated with patient's history, clinical presentation, and RESIDENTIAL SALES REPRESENTATIVE cytology report. 10/07/2023 2:43 PM [facility] TECHNICIAN 10/08/2023 7:14 AM [facility] TECHNICIAN Neto Parson M.D. LAB MICROBIOLOGY - G ENERAL ORDERABLES [facility] [address] [place] [address], [facility] [address] [place] [id number] from Last 3 Months or Most Recently Relevant to Health Maintenance
--- OUTSIDE RECORDS SUMMARY | 2024-04-19 07:16 | XMS_ITS | Encounter Summary ---
Author Organization [facility] Address [address] [place] [address] Care Team Providers Care Public Records Researcher Name Role Phone Unavailable Primary Care Provider Unavailabl e Encounter Details Date Type Department Care Team (Latest Contact Info) Description 02/23/2024 10:00 AM CDT Silent Schedule Department of Obstetrics and Gynecology in [place], [place] [address] [place] [phone] Cami Adams M.D. [address] [place] [phone] Multigravida Advanced Maternal Age Affecting Management (HCC); [...] your living situation today? I have a [facility] place to live 09/22/2023 Education Answer Date Recorded What is the highest level of school you have completed or the highest degree you have received? High school graduate 09/22/2023 Estimated Date of Delivery Comme nts Yes 05/14/2024 Based on Ultraso und Sex and Gender Information Value Date Recorded Sex Assigned at Female 09/22/2023 9:11 AM CLEAN ROOM ASSEMBLER Gender Identity Female 09/22/2023 9:11 AM CLEAN ROOM ASSEMBLER Sexual Orientation Straight 09/22/2023 9: 11 AM CLEAN ROOM ASSEMBLER documented as of this encounter Plan of [...]
--- OUTSIDE RECORDS SUMMARY | 2024-04-19 07:16 | XMS_ITS | Encounter Summary ---
Author Organization [facility] Address [address] [place] [address] Care Team Providers Care Sas Clinical Programmer Name Role Phone Unavailable Primary Care Provider Unavailabl e Encounter Details Date Type Department Care Team (Late st Contact Info) Description 03/03/2024 Orders Only Department of Laboratory Medicine in [place], [place] [address] [place] [phone] Cami Adams M.D. [address] [place] [phone] Impaired Glucose Tolerance (Primary Dx); Obesity Body [...] your living situation today? I have a [facility] place to live 09/22/2023 Education Answer Date Recorded What is the highest level of school you have completed or the highest degree you have received? High school graduate 09/22/2023 Estimated Date of Delivery Comme nts Yes 05/14/2024 Based on Ultraso und Sex and Gender Information Value Date Recorded Sex Assigned at Female 09/22/2023 9:11 AM VB DEVELOPER Gender Identity Female 09/22/2023 9:11 AM VB DEVELOPER Sexual Orientation Straight 09/22/2023 9: 11 AM VB DEVELOPER documented as of this encounter Plan of [...]
--- OUTSIDE RECORDS SUMMARY | 2024-04-19 07:16 | XMS_ITS | Clinical Summary ---
Author Organization [facility] Address [place], [place] [address] Care Team Providers Care Medical Staff Credentialing Coordinator Name Role Phone [facility] Primary Care Provider [phone] Allergies No known active allergies Medications Medication [...] daily. 01/20/2021 Active omeprazole 20 mg tabletIndications:Ac [place] right-sided low back pain without sciatica Take 1 Tablet (20 mg) by mouth once daily before a meal. 10 Tablet 01/21/2022 Active ondansetron (ZOFRAN ODT) 4 mg disintegrating tabletIndications:Ac [place] right-sided low back pain without sciatica Place [...] al N Livin g 9 9 SLIM Z,BG JAKUB Wang Complications:None Delivery Location:[facility] Current Summary Episode Dates Number of Fetuses Estimated Date of Delivery 2023 - Present (04/19/2024) Unknown Last Filed Vital Signs Vital Sign [...] st Contact Info) Description 05/05/2024 Hospital Encounter [facility] [address] [place] [address] Neto Parson MD [address] [address] [place] [address] Health Maintenance Due Date Last Done Comments Tdap 1996 Depression screening for age 12+ 1997 HIV for age 15-65 2000 BMI (ht and wt on same day) for age 18+ 2003 Hepatitis C screening for age 18-79 2003 Tetanus booster 2005 Pap test for age 21-65 2006 Influenza for age 9-49 06/18/2024 COVID-19 vaccine series Completed 03/22/20, 07/16/2022, 10/08/2021, Additional history exists Pneumococcal series for age 6-64 Aged Out No longer eligible based on patient's age to complete this topic Advance Directives * Full Code (Latest Code Status on File) Date Activated Date Inactivated Comments 05/12/2018 12:15 PM 05/14/2018 1:40 PM Care Teams Medical Staff Credentialing Coordinator Relationship Specialty Start Date End Date [facility] [address] [place] [address] PCP - General 04/14/24
--- OUTSIDE RECORDS SUMMARY | 2024-04-19 07:16 | XMS_ITS | Encounter Summary ---
Author Organization [facility] Address [address] [place] [address] Care Team Providers Care Third Cook Name Role Phone Unavailable Primary Care Provider Unavailabl e Encounter Details Date Type Department Care Team (Latest Contact Info) Description 02/23/2024 10:40 AM CDT - 02/23/2024 11:59 PM CDT Hospital Encounter Department of Laboratory Medicine in [place], [place] [address] [place] [phone] Cami Adams M.D. [address] [place] [phone] Multigravida Advanced Maternal Age Affecting Management (HCC); [...] your living situation today? I have a [facility] place to live 09/22/2023 Education Answer Date Recorded What is the highest level of school you have completed or the highest degree you have received? High school graduate 09/22/2023 Estimated Date of Delivery Comme nts Yes 05/14/2024 Based on Ultraso und Sex and Gender Information Value Date Recorded Sex Assigned at Female 09/22/2023 9:11 AM GYPSUM ROOFER Gender Identity Female 09/22/2023 9:11 AM GYPSUM ROOFER Sexual Orientation Straight 09/22/2023 9: 11 AM GYPSUM ROOFER documented as of this encounter Medications at [...] 500 mg by mouth daily with breakfast. polyethylene glycol (MIRALAX) 17 gram/dose oral powderIndications:Const [...] needed for constipation. 60 tablet 1 12/28/2023 omega-3 fatty acids-fish oil 300-1,000 mg per capsule Take 2 g by mouth daily. documented as of this encounter Miscellaneous Notes [...] Reflex, Serum (02/23/2024 11:58 AM CDT) Pathologist [facility] Syphilis Total Ab w/ Reflex Nonreactive Nonreactive 02/24/2024 1:04 PM CDT [facility] Comment: No serologic evidence of infection with T. pallidum (syphilis). ??Repeat testing may be considered in patients with suspected acute or primary syphilis in 2-4 weeks. For additional information on interpretation of the syphilis reverse algorithm and results, see: [email or web address] Blood (Blood, Venous) 02/23/2024 11:58 AM CDT 02/24/2024 11:19 AM CDT Cami Adams M.D. LAB BLOOD ADD-ON [facility] [address] [place] [address], [facility] [place] in [address] [address] * (ABNORMAL) CBC without Differential (02/23/2024 11:58 AM CDT) Pathologist [facility] Hemoglobin 11.5(L) 11.6 - 15.0 g/dL 02/23/2024 [...] M.D. LAB BLOOD ADD-ON Performing Organization Address City/[facility]/ZIP Co de Phone Number [facility] [address] [place] [address], [place] FB60 [facility] in [place] [address] [place] [address] * Glucose Tolerance Test, 1 hour (02/23/2024 11:58 AM CDT) Glucose Eliud, 1 Hr, P 183 <140 mg/dL 02/23/2024 6:12 PM CDT OWAT Blood (Blood, Venous) 02/23/2024 11:58 AM CDT 02/23/2024 5:37 PM CDT Cami Adams M.D. LAB BLOOD NON ADD-ON Performing Organization Address City/[facility]/ZIP Co de Phone Number [facility] [address] [place] [address], [place] OWAT [facility] in [place] [address] [place] [address] documented in this encounter Visit Diagnoses Diagnosis Multigravida Advanced Maternal Age Affecting Management (HCC) Hypertension Essential Pre-Existing (HCC) documented in this encounter Additional Health Concerns Assessment Noted Time PHQ-9 Depression Total Score: 0 02/23/20 24 10:57 AM CDT documented as of this encounter
--- OUTSIDE RECORDS SUMMARY | 2024-04-19 07:16 | XMS_ITS ---
Author Organization [facility] Address [address] [place] [address] Care Team Providers Care Apartment Coordinator Name Role Phone Unavailable Unavailable Unavailable Surgery Details Not on file Complications Check Surgery Details section. Procedure Estimated Blood Loss Check Surgery Details section. Procedure Findings Check Surgery Details section. Procedure Specimens Taken Check Surgery Details section.
--- OUTSIDE RECORDS SUMMARY | 2024-04-19 07:16 | XMS_ITS | Clinical Summary ---
Author Organization [facility] Address [address] [place] [address] Care Team Providers Care Molecular Modeler Name Role Phone Unavailable Primary Care Provider Unavailabl e Source Comments Patient records contain information from all sites at [facility]. For routine questions regarding patient records, call [phone] during business hours, M-F 8:00 AM - 5:00 PM Central Time. Record requests for emergency care only can be directed to [phone] at any time.[facility] Allergies No known active allergies Medications Medication [...] trimester OB education completed. Pre-reg completed at [facility]. 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 Impaired Glucose Tolerance (Primary Dx); Obesity Body Mass Index 30-39.9 Adult; Multigravida Advanced Maternal Age Affecting Management (HCC) 02/23/2024 11:00 AM CDT Routine Department of Obstetrics and Gynecology in [address] [address] Cami Adams M.D. Dettmann, Heather B, Gustavo Need Vaccine Immunization Tetanus And Diphtheria Toxoids And Pertussis (Primary Dx); Multigravida Advanced Maternal Age Affecting Management (HCC); Hypertension Essential Pre-Existing (HCC) 02/23/2024 10:40 AM CDT - 02/23/2024 11:59 PM CDT Hospital Encounter Department of Laboratory Medicine in [address] [address] Cami Adams M.D. Multigravida Advanced Maternal Age Affecting Management (HCC); Hypertension Essential Pre-Existing (HCC) Discharge Disposition: Home or Self Care 02/23/2024 10:00 AM CDT Silent Schedule Department of Obstetrics and Gynecology in [address] [address] Cami Adams M.D. Multigravida Advanced Maternal Age Affecting Management (HCC); Hypertension Essential Pre-Existing (HCC) 01/20/2024 9:00 AM CDT Routine Department of Obstetrics and Gynecology in [address] [address] Mildred Madrid, MARSHALL, C.N.P. Multigravida Advanced Maternal [...] your living situation today? I have a [facility] place to live 09/22/2023 Education Answer Date Recorded What is the highest level of school you have completed or the highest degree you have received? High school graduate 09/22/2023 Estimated Date of Delivery Comme nts Yes 05/14/2024 Based on Ultraso und Sex and Gender Information Value Date Recorded Sex Assigned at Female 09/22/2023 9:11 AM HAND BOBBIN CLEANER Gender Identity Female 09/22/2023 9:11 AM HAND BOBBIN CLEANER Sexual Orientation Straight 09/22/2023 9: 11 AM HAND BOBBIN CLEANER Last Filed Vital Signs Vital Sign Reading Time Taken Comments Blood Pressure 109/66 02/23/2024 10:54 AM CDT Pulse 91 02/23/2024 10:54 AM CDT Temperature 36.8 ??C (98.2 ??F) 06/23/2018 1:56 PM CD T Respiratory Rate 16 06/23/2018 1:56 PM CDT Oxygen Saturation 99% 10/07/2023 2:06 PM HAND BOBBIN CLEANER Inhaled Oxygen Concentration - - Weight 92.8 kg (204 lb 9.4 oz) 02/23/2024 10:54 AM CDT Height 163 cm (5' 4.17) 06/23/2018 1:56 PM CDT Body Mass Index 34.93 06/23/2018 1:56 PM CDT Plan of Treatment Health Maintenance Due Date Last Done Comments Lipid (Cholesterol) Screening 1985 Hepatitis B Vaccines (1 of 3 - 19+ 3-dose series) 2004 COVID-19 Vaccine (2022- season) 2023 07/16/2022, 10/08/2021, 12/04/2020, Additional history exists Influenza Vaccine (#1) 2024 3, 07/01/2022, 07/02/2021, Additional history exists Fasting Glucose for Diabetes Screening 10/14/2024 10/14/2023, 01/21/2022, 02/18/2018 Office Visit for Blood Pressure Check / Re-check 02/22/2025 02/23/2024 Cervical Cancer Screening 10/07/20282022, 10/07/2023, 10/22/2017 DTaP,Tdap,and Td Vaccines (4 - Td or Tdap) 02/22/2034 02/23/2024, 02/16/2018, 02/20/2015 HIV Screening Completed 10/14/2023, 10/22/2017 Hepatitis C [...] A1C, B Routine 10/14/2023 11: 22 AM HAND BOBBIN CLEANER Examination Test With Positive Result (HCC) HCV AB SCRN , S Routine 10/14/2023 11:22 AM HAND BOBBIN CLEANER Examination Test With Positive Result (HCC) HIV-1/-2 AG AND AB SCRN, PLASMA Routine 10/14/2023 11:22 AM HAND BOBBIN CLEANER Examination Test With Positive Result (HCC) HPV WITH GENOTYPING, PCR, THINPREP Routine 10/07/2023 2:43 PM HAND BOBBIN CLEANER from Last 3 Months or Most Recently Relevant to Health Maintenance Results * Syphilis Total Antibody with Reflex, Serum (02/23/2024 11:58 AM CDT) Syphilis Total Ab w/ Reflex Nonreactive Nonreactive 02/24/2024 1:04 PM CDT [facility] Comment: No serologic evidence of infection with T. pallidum (syphilis). ??Repeat testing may be considered in patients with suspected acute or primary syphilis in 2-4 weeks. For additional information on interpretation of the syphilis reverse algorithm and results, see: [email or web address] Blood (Blood, Venous) 02/23/2024 11:58 AM CDT 02/24/2024 11:19 AM CDT Cami Adams M.D. LAB BLOOD ADD-ON [facility] [address] [place] [address], [facility] in [address] [address] * Glucose Tolerance Test, 1 hour (02/23/2024 11:58 AM CDT) Glucose Ronnie, 1 Hr, P 183 <140 mg/dL 02/23/2024 6:12 PM CDT OW[facility] Blood (Blood, Venous) 02/23/2024 11:58 AM CDT 02/23/2024 5:37 PM CDT Cami Adams M.D. LAB BLOOD NON ADD-ON [facility] [address] [place] [address], [place] OWAT [facility] [place] [address] [place] [address] * (ABNORMAL) CBC without Differential (02/23/2024 11:58 [...] Adams M.D. LAB BLOOD ADD-ON [facility] [address] [place] [address], [place] FB60 [facility] [place] [address] [place] [address] * US OB Growth Munguia (02/23/2024 10:39 [...] C Virus Antibody Screen (10/14/2023 11:22 AM HAND BOBBIN CLEANER) HCV Ab Scrn , S Negative Negative 10/15/2023 9:05 AM HAND BOBBIN CLEANER [facility] Comment:Mbayyc-xf-gfcdfg rat io is <1.00. Blood (Blood, Venous) 10/14/2023 11:22 AM HAND BOBBIN CLEANER 10/15/2023 7:43 AM HAND BOBBIN CLEANER Neto Parson M.D. LAB MICROBIOLOGY - B LOOD ORDERABLES [facility] [address] [place] [address] [facility] [address] [place] [address] * HIV-1/-2 Ag and Ab Scrn, Plasma (10/14/2023 11:22 AM HAND BOBBIN CLEANER) HIV Ag/Ab Scrn, P Negative Negative 10/15/2023 12:18 PM HAND BOBBIN CLEANER [facility] Comment: Negative result does not rule out HIV infection. If exposure to HIV infection occurred <14 days ago, contact the laboratory to request addition of HIV-1/HIV-2 RNA detection , Plasma (HPP12). HIV-1 p24 Ag Scrn, P Negative Negative 10/15/2023 12:18 PM HAND BOBBIN CLEANER [facility] Comment: Negative result does not rule out HIV infection. If exposure to HIV infection occurred <14 days ago, contact the laboratory to request addition of HIV-1/HIV-2 RNA detection , Plasma (HPP12). HIV-1 Ab Scrn, P Negative Negative 10/15/2023 12:18 PM HAND BOBBIN CLEANER [facility] Comment: Negative result does not rule out HIV infection. If exposure to HIV infection occurred <14 days ago, contact the laboratory to request addition of HIV-1/HIV-2 RNA detection , Plasma (HPP12). HIV-2 Ab Scrn, P Negative Negative 10/15/2023 12:18 PM HAND BOBBIN CLEANER [facility] Comment: Negative result does not rule out HIV infection. If exposure to HIV infection occurred <14 days ago, contact the laboratory to request addition of HIV-1/HIV-2 RNA detection , Plasma (HPP12). Blood (Blood, Venous) 10/14/2023 11:22 AM HAND BOBBIN CLEANER 10/15/2023 10:34 AM HAND BOBBIN CLEANER Neto Parson M.D. LAB MICROBIOLOGY - B LOOD ORDERABLES Performing Organization Address City/[facility]/ZIP Co de Phone Number [facility] [address] [place] [address], [place] [facility] in [address] [address] * Hemoglobin A1c (10/14/2023 11:22 AM HAND BOBBIN CLEANER) Hemoglobin A1c, B 5.4 4.2 - 5.6 % 10/14/2023 1:38 PM HAND BOBBIN CLEANER [facility] Blood (Blood, Venous) 10/14/2023 11:22 AM HAND BOBBIN CLEANER 10/14/2023 12:37 PM HAND BOBBIN CLEANER Neto Parson M.D. LAB BLOOD ADD-ON [facility] [address] [place] [address], [place] [facility] [place] [address] [place] [address] * HPV with Genotyping, PCR, ThinPrep (10/07/2023 2:43 PM HAND BOBBIN CLEANER) HPV with Genotyping, ThinPrep, PCR Negative Negative 10/08/2023 3:48 PM HAND BOBBIN CLEANER [facility] Comment: Negative for high risk HPV [...] correlated with patient's history, clinical presentation, and BUILDING ENERGY CONSULTANT cytology report. 10/07/2023 2:43 PM HAND BOBBIN CLEANER 10/08/2023 7:14 AM HAND BOBBIN CLEANER Neto Parson M.D. LAB MICROBIOLOGY - G ENERAL ORDERABLES [facility] [address] [place] [address], [facility] [address] [place] [address] from Last 3 Months or Most Recently Relevant to Health Maintenance
== END 2024-04-19 07:14 | disposition home or self-care (01) ==
PROVIDERS: Visit Provider Obstetrics & Gynecology
DX: O10.913 Unspecified pre-existing hypertension complicating pregnancy, third trimester (principal); Z3A.37 37 weeks gestation of pregnancy
CPT/HCPCS: 76816; 76819

== ENCOUNTER 2024-04-25 13:04 | Outpatient (CLI) | payer BC, SELFPAY ==
--- NOTE | 2024-04-25 13:00 | CRLHL7_ITS ---
For Patients: As a result of the Century Cures Act, medical imaging exams and procedure reports are released immediately into your electronic medical record. You may view this report before your referring provider. If you have questions, please contact your health care provider. INDICATION: Gestational diabetes mellitus. COMPARISON: OB ultrasound 04/19/2024. TECHNIQUE: Ultrasound OB pelvis biophysical profile. Real time puckett scale imaging of the fetus was performed without non-stress testing. FINDINGS: Sonographic imaging demonstrates a single living intrauterine gestation. The fetus demonstrates a regular cardiac rate of 141 beats per minute. The fetus has a cephalic orientation. The placenta lies anteriorly. Single deepest pocket measures 7.0 cm (2/2). The fetus was active (2/2). There was normal flexion and extension of the trunk and extremities (2/2). The fetus demonstrated normal breathing movements (2/2). IMPRESSION: Normal biophysical profile score 8 out of 8. Dictated by Ann Blackmon MD @ 04/26/2024 3:03:22 AM (Electronically Signed)
--- OUTSIDE RECORDS SUMMARY | 2024-04-25 13:08 | XMS_ITS | Encounter Summary ---
Author Organization [facility] Address [address] [place] [address] Care Team Providers Care Motorboat Mechanic Name Role Phone Unavailable Primary Care Provider Unavailabl e Reason for Visit * Reason Comments Nurse Visit 28 week RN education visit * Outpatient (Routine) - Authorized Specialty Diagnoses / Procedures Referred By Ernesto heller Referred To Contact Obstetrics and Gynecology Diagnoses Multigravida Advanced Maternal Age Affecting Management (HCC) Hypertension Essential Pre-Existing (HCC) Cami Adams M.D. [address] [place] [address] [facility] Referral ID Status Reason Start Date Expiration Date V isits Requested Visits Authorized [id number] Authorized 12/28/2023 06/28/2025 3 3 Encounter Details Date Type Department Care Team (Latest Contact Info) Description 02/23/2024 11:00 AM CDT Routine Department of Obstetrics and Gynecology in [address] [place] [address] Cami Adams M.D. [address] [place] [address] Deepa Del Cid RForrestNForrest Need [...] Sex Assigned at Female 09/22/2023 9:11 AM CIVIL ENGINEER IN TRAINING Gender Identity Female 09/22/2023 9:11 AM CIVIL ENGINEER IN TRAINING Sexual Orientation Straight 09/22/2023 9: 11 AM CIVIL ENGINEER IN TRAINING documented as of this encounter Last Filed [...] positions/ SIDS, medications, and screening. provider is youth care professional. She is having a boy. She is planning to breastfeed. Signs and symptoms of mastitis were also reviewed. 7.) family planning was reviewed and she is planning on unsure at this time. 8.) Patient is planning on transferring care to [place] and delivering there. Made her next appointment there, 03/23/24. 2nd/3rd Trimester education provided today using the ACOG list of recommended antepartum education topics and in accordance with [facility] guidelines. Patient states understanding to all topics [...]
--- OUTSIDE RECORDS SUMMARY | 2024-04-25 13:08 | XMS_ITS | Referral Summary ---
Author Organization [facility] Address [address] [place] [address] Care Team Providers Care Wood Hacker Name Role Phone Unavailable Primary Care Provider Unavailabl e Source Comments Patient records contain information from all sites at [facility]. For routine questions regarding patient records, call [phone] during business hours, M-F 8:00 AM - 5:00 PM Central Time. Record requests for emergency care only can be directed to [phone] at any time.[facility] Encounters Date Type Department Care Team Description 03/03/2024 Orders Only Department of Laboratory Medicine in [address] [phone] Cami Adams M.D. Impaired Glucose Tolerance (Primary Dx); Obesity Body Mass Index 30-39.9 Adult; Multigravida Advanced Maternal Age Affecting Management (HCC) 02/23/2024 11:00 AM CDT Routine Department of Obstetrics and Gynecology in [address] [phone] Cami Adams M.D. Dettmann, Heather B, R.N. Need Vaccine Immunization Tetanus And Diphtheria Toxoids And Pertussis (Primary Dx); Multigravida Advanced Maternal Age Affecting Management (HCC); Hypertension Essential Pre-Existing (HCC) 02/23/2024 10:00 AM CDT Silent Schedule Department of Obstetrics and Gynecology in [address] [phone] Cami Adams M.D. Multigravida Advanced Maternal Age Affecting Management (HCC); Hypertension Essential Pre-Existing (HCC) 02/23/2024 10:40 AM CDT - 02/23/2024 11:59 PM CDT Hospital Encounter Department of Laboratory Medicine in [place] [address] [address] [facility] [place] [address] Cami Adams M.D. Multigravida Advanced Maternal Age Affecting Management (HCC); Hypertension Essential Pre-Existing (HCC) Discharge Disposition: Home or Self Care from [...] trimester OB education completed. Pre-reg completed at [facility]. LMP:10/13/23-approximate EDC:05/05/24 provider:taxation consultant FOB involved:Aly Problem Noted Date Diagnosed Date [...] Sex Assigned at Female 09/22/2023 9:11 AM SKIN FITTER Gender Identity Female 09/22/2023 9:11 AM SKIN FITTER Sexual Orientation Straight 09/22/2023 9: 11 AM SKIN FITTER Last Filed Vital Signs Vital Sign Reading Time Taken Comments Blood Pressure 109/66 02/23/2024 10:54 AM CDT Pulse 91 02/23/2024 10:54 AM CDT Temperature 36.8 ??C (98.2 ??F) 06/23/2018 1:56 PM CD T Respiratory Rate 16 06/23/2018 1:56 PM CDT Oxygen Saturation 99% 10/07/2023 2:06 PM SKIN FITTER Inhaled Oxygen Concentration - - Weight 92.8 [...] A1C, B Routine 10/14/2023 11: 22 AM SKIN FITTER Examination Test With Positive Result (HCC) HCV AB SCRN , S Routine 10/14/2023 11:22 AM SKIN FITTER Examination Test With Positive Result (HCC) HIV-1/-2 AG AND AB SCRN, PLASMA Routine 10/14/2023 11:22 AM SKIN FITTER Examination Test With Positive Result (HCC) HPV WITH GENOTYPING, PCR, THINPREP Routine 10/07/2023 2:43 PM SKIN FITTER from Last 3 Months or Most Recently Relevant to Health Maintenance Results * Syphilis Total Antibody with Reflex, Serum (02/23/2024 11:58 AM CDT) Syphilis Total Ab w/ Reflex Nonreactive Nonreactive 02/24/2024 1:04 PM CDT [facility] Comment: No serologic evidence of infection with T. pallidum (syphilis). ??Repeat testing may be considered in patients with suspected acute or primary syphilis in 2-4 weeks. For additional information on interpretation of the syphilis reverse algorithm and results, see: [email or web address] Blood (Blood, Venous) 02/23/2024 11:58 AM CDT 02/24/2024 11:19 AM CDT Cami Adams M.D. LAB BLOOD ADD-ON [facility] [address] [place] [address], [facility] [[email or web address]] [facility] [place] [address] * Glucose Tolerance Test, 1 hour (02/23/2024 11:58 AM CDT) Pathologist [facility] Glucose Eliud, 1 Hr, P 183 <140 mg/dL 02/23/2024 6:12 PM CDT [facility] Blood (Blood, Venous) 02/23/2024 11:58 AM CDT 02/23/2024 5:37 PM CDT Cami Adams M.D. LAB BLOOD NON ADD-ON [facility] [address] [place] [address], [place] OW[place] [facility] [place] [address] [place] [address] * (ABNORMAL) CBC without Differential (02/23/2024 11:58 [...] CDT Cami Adams M.D. LAB BLOOD ADD-ON [facility] [address] [place] [address], [facility] [[email or web address] FB60 [facility] [place] [address] [place] [address] * US OB Growth Munguia (02/23/2024 10:39 [...] C Virus Antibody Screen (10/14/2023 11:22 AM SKIN FITTER) HCV Ab Scrn , S Negative Negative 10/15/2023 9:05 AM SKIN FITTER [facility] Comment:Lmexgi-pk-xyerdd rat io is <1.00. Blood (Blood, Venous) 10/14/2023 11:22 AM SKIN FITTER 10/15/2023 7:43 AM SKIN FITTER Neto Parson M.D. LAB MICROBIOLOGY - B LOOD ORDERABLES [facility] [address] [place] [address] [facility] [address] [place] [address] * HIV-1/-2 Ag and Ab Scrn, Plasma (10/14/2023 11:22 AM SKIN FITTER) HIV Ag/Ab Scrn, P Negative Negative 10/15/2023 12:18 PM SKIN FITTER [facility] Comment: Negative result does not rule out HIV infection. If exposure to HIV infection occurred <14 days ago, contact the laboratory to request addition of HIV-1/HIV-2 RNA detection , Plasma (HPP12). HIV-1 p24 Ag Scrn, P Negative Negative 10/15/2023 12:18 PM SKIN FITTER [facility] Comment: Negative result does not rule out HIV infection. If exposure to HIV infection occurred <14 days ago, contact the laboratory to request addition of HIV-1/HIV-2 RNA detection , Plasma (HPP12). HIV-1 Ab Scrn, P Negative Negative 10/15/2023 12:18 PM SKIN FITTER [facility] Comment: Negative result does not rule out HIV infection. If exposure to HIV infection occurred <14 days ago, contact the laboratory to request addition of HIV-1/HIV-2 RNA detection , Plasma (HPP12). HIV-2 Ab Scrn, P Negative Negative 10/15/2023 12:18 PM SKIN FITTER [facility] Comment: Negative result does not rule out HIV infection. If exposure to HIV infection occurred <14 days ago, contact the laboratory to request addition of HIV-1/HIV-2 RNA detection , Plasma (HPP12). Blood (Blood, Venous) 10/14/2023 11:22 AM SKIN FITTER 10/15/2023 10:34 AM SKIN FITTER Neto Parson M.D. LAB MICROBIOLOGY - B LOOD ORDERABLES Performing Organization Address City/[facility]/ZIP Co de Phone Number [facility] [address] [place] [address], [facility] [[email or web address]] [facility] [place] [address] [place] [address] * Hemoglobin A1c (10/14/2023 11:22 AM SKIN FITTER) Hemoglobin A1c, B 5.4 4.2 - 5.6 % 10/14/2023 1:38 PM SKIN FITTER [facility] Blood (Blood, Venous) 10/14/2023 11:22 AM SKIN FITTER 10/14/2023 12:37 PM SKIN FITTER Neto Parson M.D. LAB BLOOD ADD-ON Performing Organization Address [facility] Co de Phone Number [facility] [address] [place] [address], [place] OW[place] [facility] [place] [address] [place] [address] * HPV with Genotyping, PCR, ThinPrep (10/07/2023 2:43 PM SKIN FITTER) HPV with Genotyping, ThinPrep, PCR Negative Negative 10/08/2023 3:48 PM SKIN FITTER [facility] Comment: Negative for high risk HPV [...] correlated with patient's history, clinical presentation, and PAPER FINAL INSPECTOR cytology report. 10/07/2023 2:43 PM SKIN FITTER 10/08/2023 7:14 AM SKIN FITTER Neto Parson M.D. LAB MICROBIOLOGY - G ENERAL ORDERABLES [facility] [address] [place] [address], [facility] [[email or web address]] [facility] [address] [address] from Last 3 Months or Most Recently Relevant to Health Maintenance
--- OUTSIDE RECORDS SUMMARY | 2024-04-25 13:08 | XMS_ITS | Clinical Summary ---
Author Organization [facility] Address [place], [place] [address] Care Team Providers Care Fell Cutter Name Role Phone [facility] Primary Care Provider [phone] Allergies No known active allergies Medications Medication [...] daily. 01/20/2021 Active omeprazole 20 mg tabletIndications:Ac gulkana right-sided low back pain without sciatica Take 1 Tablet (20 mg) by mouth once daily before a meal. 10 Tablet 01/21/2022 Active ondansetron (ZOFRAN ODT) 4 mg disintegrating tabletIndications:Ac gulkana right-sided low back pain without sciatica Place [...] 9 SLIM Z,BG JAKUB Wang Complications:None Delivery Location:[facility] Current Summary Episode Dates Number of Fetuses Estimated Date of Delivery 2023 - Present (04/25/2024) Unknown Last Filed Vital Signs Vital Sign [...] st Contact Info) Description 05/05/2024 Hospital Encounter [facility] [address] [place] [address] Neto Parson MD [address], [place] [address] Health Maintenance Due Date Last Done Comments [...] 12:15 PM 05/14/2018 1:40 PM Care Teams Fell Cutter Relationship Specialty Start Date End Date [facility] [address] [place] [address] PCP - General 04/14/24
--- OUTSIDE RECORDS SUMMARY | 2024-04-25 13:08 | XMS_ITS | Encounter Summary ---
Author Organization [facility] Address [address] [place] [address] Care Team Providers Care Mill Tender Name Role Phone Unavailable Primary Care Provider Unavailabl e Encounter Details Date Type Department Care Team (Latest Contact Info) Description 02/23/2024 10:00 AM CDT Silent Schedule Department of Obstetrics and Gynecology in [place], [place] [address] [place] [address] Cami Adams M.D. [address] [place] [phone] Multigravida Advanced Maternal Age Affecting Management (HCC); [...] your living situation today? I have a [facility] place to live 09/22/2023 Education Answer Date Recorded What is the highest level of school you have completed or the highest degree you have received? High school graduate 09/22/2023 Estimated Date of Delivery Comme nts Yes 05/14/2024 Based on Ultraso und Sex and Gender Information Value Date Recorded Sex Assigned at Female 09/22/2023 9:11 AM TOOL TENDER Gender Identity Female 09/22/2023 9:11 AM TOOL TENDER Sexual Orientation Straight 09/22/2023 9: 11 AM TOOL TENDER documented as of this encounter Plan of [...]
--- OUTSIDE RECORDS SUMMARY | 2024-04-25 13:08 | XMS_ITS ---
Author Organization [facility] Address [address] [place] [address] Care Team Providers Care Fitter Type Bar And Segment Name Role Phone Unavailable Unavailable Unavailable Surgery Details Not on file Complications Check Surgery Details section. Procedure Estimated Blood Loss Check Surgery Details section. Procedure Findings Check Surgery Details section. Procedure Specimens Taken Check Surgery Details section.
--- OUTSIDE RECORDS SUMMARY | 2024-04-25 13:08 | XMS_ITS | Clinical Summary ---
Author Organization [facility] Address [address] [place] [address] Care Team Providers Care Public Health Aides Teacher Name Role Phone Unavailable Primary Care Provider Unavailabl e Source Comments Patient records contain information from all sites at [facility]. For routine questions regarding patient records, call [phone] during business hours, M-F 8:00 AM - 5:00 PM Central Time. Record requests for emergency care only can be directed to [phone] at any time.[facility] Allergies No known active allergies Medications [...] trimester OB education completed. Pre-reg completed at [facility]. LMP:07/30/23-approximate EDC:05/05/24 [place] provider:admissions representative FOB involved:Aly Problem Noted Date Diagnosed Date [...] Orders Only Department of Laboratory Medicine in [place], [place] [address] [place] [address] Cami Adams M.D. Impaired Glucose Tolerance (Primary Dx); Obesity Body Mass Index 30-39.9 Adult; Multigravida Advanced Maternal Age Affecting Management (HCC) 02/23/2024 11:00 AM CDT Routine Department of Obstetrics and Gynecology in [address] [address] Cami Adams M.D. Dettmann, Heather B, R.N. Need Vaccine Immunization Tetanus And Diphtheria Toxoids And Pertussis (Primary Dx); Multigravida Advanced Maternal Age Affecting Management (HCC); Hypertension Essential Pre-Existing (HCC) 02/23/2024 10:40 AM CDT - 02/23/2024 11:59 PM CDT Hospital Encounter Department of Laboratory Medicine in [address] [address] Cami Adams M.D. Multigravida Advanced Maternal Age Affecting Management (HCC); Hypertension Essential Pre-Existing (HCC) Discharge Disposition: Home or Self Care 02/23/2024 10:00 AM CDT Silent Schedule Department of Obstetrics and Gynecology in [address] [address] Cami Adams M.D. Multigravida Advanced Maternal Age Affecting Management (HCC); Hypertension Essential Pre-Existing (HCC) from Last 3 Months Immunizations Name Administration [...] living situation today? I have a [facility] place to live 09/22/2023 Education Answer Date Recorded What is the highest level of school you have completed or the highest degree you have received? High school graduate 09/22/2023 Estimated Date of Delivery Comme nts Yes 05/14/2024 Based on Ultraso und Sex and Gender Information Value Date Recorded Sex Assigned at Female 09/22/2023 9:11 AM PALAEONTOLOGIST Gender Identity Female 09/22/2023 9:11 AM PALAEONTOLOGIST Sexual Orientation Straight 09/22/2023 9: 11 AM PALAEONTOLOGIST Last Filed Vital Signs Vital Sign Reading Time Taken Comments Blood Pressure 109/66 02/23/2024 10:54 AM CDT Pulse 91 02/23/2024 10:54 AM CDT Temperature 36.8 ??C (98.2 ??F) 06/23/2018 1:56 PM CD T Respiratory Rate 16 06/23/2018 1:56 PM CDT Oxygen Saturation 99% 10/07/2023 2:06 PM PALAEONTOLOGIST Inhaled Oxygen Concentration - - Weight 92.8 [...] Additional history exists Influenza Vaccine (#1) 2024 , 07/01/2022, 07/02/2021, Additional history exists Fasting Glucose [...] A1C, B Routine 10/14/2023 11: 22 AM PALAEONTOLOGIST Examination Test With Positive Result (HCC) HCV AB SCRN , S Routine 10/14/2023 11:22 AM PALAEONTOLOGIST Examination Test With Positive Result (HCC) HIV-1/-2 AG AND AB SCRN, PLASMA Routine 10/14/2023 11:22 AM PALAEONTOLOGIST Examination Test With Positive Result (HCC) HPV WITH GENOTYPING, PCR, THINPREP Routine 10/07/2023 2:43 PM PALAEONTOLOGIST from Last 3 Months or Most Recently Relevant to Health Maintenance Results * Syphilis Total Antibody with Reflex, Serum (02/23/2024 11:58 AM CDT) Syphilis Total Ab w/ Reflex Nonreactive Nonreactive 02/24/2024 1:04 PM CDT [facility] Comment: No serologic evidence of infection with T. pallidum (syphilis). ??Repeat testing may be considered in patients with suspected acute or primary syphilis in 2-4 weeks. For additional information on interpretation of the syphilis reverse algorithm and results, see: [email or web address]-Box - [email or web address].it.com/ it-mmfiles/Syphilis_Serology_Algorithm.pdf Blood (Blood, Venous) 02/23/2024 11:58 AM CDT 02/24/2024 11:19 AM CDT Cami Adams M.D. LAB BLOOD ADD-ON [facility] [address] [place] [address], [facility] in [address] [address] * Glucose Tolerance Test, 1 hour (02/23/2024 11:58 AM CDT) Glucose Eliud, 1 Hr, P 183 <140 mg/dL 02/23/2024 6:12 PM CDT OW Blood (Blood, Venous) 02/23/2024 11:58 AM CDT 02/23/2024 5:37 PM CDT Cami Adams M.D. LAB BLOOD NON ADD-ON [facility] [address] [place] [address], [place] OWAT [facility] in [place] [address] [place] [address] * (ABNORMAL) CBC without Differential (02/23/2024 11:58 [...] CDT Cami Adams M.D. LAB BLOOD ADD-ON [facility] [address] [place] [address], [facility] FB60 [facility] in [place] [address] [facility] [place] [address] * US OB Growth Munguia (02/23/2024 10:39 [...] C Virus Antibody Screen (10/14/2023 11:22 AM PALAEONTOLOGIST) HCV Ab Scrn , S Negative Negative 10/15/2023 9:05 AM PALAEONTOLOGIST [facility] Comment:Cjajhi-cs-fthlss rat io is <1.00. Blood (Blood, Venous) 10/14/2023 11:22 AM PALAEONTOLOGIST 10/15/2023 7:43 AM PALAEONTOLOGIST Neto Parson M.D. LAB MICROBIOLOGY - B LOOD ORDERABLES [facility] [address] [place] [address] [facility] [address] [place] [address] * HIV-1/-2 Ag and Ab Scrn, Plasma (10/14/2023 11:22 AM PALAEONTOLOGIST) HIV Ag/Ab Scrn, P Negative Negative 10/15/2023 12:18 PM PALAEONTOLOGIST [facility] Comment: Negative result does not rule out HIV infection. If exposure to HIV infection occurred <14 days ago, contact the laboratory to request addition of HIV-1/HIV-2 RNA detection , Plasma (HPP12). HIV-1 p24 Ag Scrn, P Negative Negative 10/15/2023 12:18 PM PALAEONTOLOGIST [facility] Comment: Negative result does not rule out HIV infection. If exposure to HIV infection occurred <14 days ago, contact the laboratory to request addition of HIV-1/HIV-2 RNA detection , Plasma (HPP12). HIV-1 Ab Scrn, P Negative Negative 10/15/2023 12:18 PM PALAEONTOLOGIST [facility] Comment: Negative result does not rule out HIV infection. If exposure to HIV infection occurred <14 days ago, contact the laboratory to request addition of HIV-1/HIV-2 RNA detection , Plasma (HPP12). HIV-2 Ab Scrn, P Negative Negative 10/15/2023 12:18 PM PALAEONTOLOGIST [facility] Comment: Negative result does not rule out HIV infection. If exposure to HIV infection occurred <14 days ago, contact the laboratory to request addition of HIV-1/HIV-2 RNA detection , Plasma (HPP12). Blood (Blood, Venous) 10/14/2023 11:22 AM PALAEONTOLOGIST 10/15/2023 10:34 AM PALAEONTOLOGIST Neto Parson M.D. LAB MICROBIOLOGY - B LOOD ORDERABLES Performing Organization Address City/[facility]/ZIP Co de Phone Number [facility] [address] [place] [address], [facility] in [place] [address] [place] [address] * Hemoglobin A1c (10/14/2023 11:22 AM PALAEONTOLOGIST) Hemoglobin A1c, B 5.4 4.2 - 5.6 % 10/14/2023 1:38 PM PALAEONTOLOGIST OWAT Blood (Blood, Venous) 10/14/2023 11:22 AM PALAEONTOLOGIST 10/14/2023 12:37 PM PALAEONTOLOGIST Neto Parson M.D. LAB BLOOD ADD-ON Performing Organization Address [facility] Co de Phone Number [facility] [address] [place] [address], [facility] OWAT [facility] in [place] [address] [place] [address] * HPV with Genotyping, PCR, ThinPrep (10/07/2023 2:43 PM PALAEONTOLOGIST) HPV with Genotyping, ThinPrep, PCR Negative Negative 10/08/2023 3:48 PM PALAEONTOLOGIST [facility] Comment: Negative for high risk HPV [...] correlated with patient's history, clinical presentation, and SEBD TEACHER cytology report. 10/07/2023 2:43 PM PALAEONTOLOGIST 10/08/2023 7:14 AM PALAEONTOLOGIST Neto Parson M.D. LAB MICROBIOLOGY - G ENERAL ORDERABLES [facility] [address] [place] [address], [facility] [address] [address] from Last 3 Months or Most Recently Relevant to Health Maintenance
--- OUTSIDE RECORDS SUMMARY | 2024-04-25 13:08 | XMS_ITS | Encounter Summary ---
Author Organization [facility] Address [address] [place] [address] Care Team Providers Care Software Test And Validation Engineer Name Role Phone Unavailable Primary Care Provider Unavailabl e Reason for Visit * Reason Comments Routine Visit 23w 4d * Outpatient (Routine) - Authorized Specialty Diagnoses / Procedures Referred By Ernesto heller Referred To Contact Obstetrics and Gynecology Diagnoses Multigravida Advanced Maternal Age Affecting Management (HCC) Hypertension Essential Pre-Existing (HCC) Cami Adams M.D. [address] [place] [address] [facility] Referral ID Status Reason Start Date Expiration Date V isits Requested Visits Authorized [id number] Authorized 12/28/2023 06/28/2025 3 3 Encounter Details Date Type Department Care Team (Latest Contact Info) Description 01/20/2024 9:00 AM CDT Routine Department of Obstetrics and Gynecology in [address] [address] Mildred Madrid APRN, C.N.P. [address] [place] [address] Multigravida Advanced Maternal Age Affecting [...] your living situation today? I have a [facility] place to live 09/22/2023 Education Answer Date Recorded What is the highest level of school you have completed or the highest degree you have received? High school graduate 09/22/2023 Estimated Date of Delivery Comme nts Yes 05/14/2024 Based on Ultraso und Sex and Gender Information Value Date Recorded Sex Assigned at Female 09/22/2023 9:11 AM OIL GAS AND PIPE TESTER Gender Identity Female 09/22/2023 9:11 AM OIL GAS AND PIPE TESTER Sexual Orientation Straight 09/22/2023 9: 11 AM OIL GAS AND PIPE TESTER documented as of this encounter Last Filed [...] this plan. Anjel Lewis Student from the [facility] Physician [employer] was present throughoutthis visit. He participated [...] Total Score: 1 09/22/20 23 9:44 AM OIL GAS AND PIPE TESTER documented as of this encounter
--- OUTSIDE RECORDS SUMMARY | 2024-04-25 13:08 | XMS_ITS | Encounter Summary ---
Author Organization [facility] Address [address] [place] [address] Care Team Providers Care Information Systems Security Developer Name Role Phone Unavailable Primary Care Provider Unavailabl e Encounter Details Date Type Department Care Team (Late st Contact Info) Description 03/03/2024 Orders Only Department of Laboratory Medicine in [place], [place] [address] [place] [address] Cami Adams M.D. [address] [place] [phone] Impaired Glucose Tolerance (Primary Dx); Obesity Body [...] your living situation today? I have a [facility] place to live 09/22/2023 Education Answer Date Recorded What is the highest level of school you have completed or the highest degree you have received? High school graduate 09/22/2023 Estimated Date of Delivery Comme nts Yes 05/14/2024 Based on Ultraso und Sex and Gender Information Value Date Recorded Sex Assigned at Female 09/22/2023 9:11 AM RECEIVING AND PROCESSING SUPERVISOR Gender Identity Female 09/22/2023 9:11 AM RECEIVING AND PROCESSING SUPERVISOR Sexual Orientation Straight 09/22/2023 9: 11 AM RECEIVING AND PROCESSING SUPERVISOR documented as of this encounter Plan of [...]
--- OUTSIDE RECORDS SUMMARY | 2024-04-25 13:08 | XMS_ITS | Encounter Summary ---
Author Organization [facility] Address [address] [place] [address] Care Team Providers Care Relief Operator Name Role Phone Unavailable Primary Care Provider Unavailabl e Encounter Details Date Type Department Care Team (Latest Contact Info) Description 02/23/2024 10:40 AM CDT - 02/23/2024 11:59 PM CDT Hospital Encounter Department of Laboratory Medicine in [place], [place] [address] [place] [phone] Cami Adams M.D. [address] [place] [phone] Multigravida Advanced Maternal Age Affecting Management (HCC); [...] your living situation today? I have a [facility] place to live 09/22/2023 Education Answer Date Recorded What is the highest level of school you have completed or the highest degree you have received? High school graduate 09/22/2023 Estimated Date of Delivery Comme nts Yes 05/14/2024 Based on Ultraso und Sex and Gender Information Value Date Recorded Sex Assigned at Female 09/22/2023 9:11 AM BEAN DUMPER Gender Identity Female 09/22/2023 9:11 AM BEAN DUMPER Sexual Orientation Straight 09/22/2023 9: 11 AM BEAN DUMPER documented as of this encounter Medications at [...] Reflex, Serum (02/23/2024 11:58 AM CDT) Pathologist [facility] Syphilis Total Ab w/ Reflex Nonreactive Nonreactive 02/24/2024 1:04 PM CDT [facility] Comment: No serologic evidence of infection with T. pallidum (syphilis). ??Repeat testing may be considered in patients with suspected acute or primary syphilis in 2-4 weeks. For additional information on interpretation of the syphilis reverse algorithm and results, see: [email or web address] [email or web address] Blood (Blood, Venous) 02/23/2024 11:58 AM CDT 02/24/2024 11:19 AM CDT Cami Adams M.D. LAB BLOOD ADD-ON [facility] [address] [place] [address], [facility] in [address] [address] * (ABNORMAL) CBC without Differential (02/23/2024 11:58 AM CDT) Pathologist [facility] Hemoglobin 11.5(L) 11.6 - 15.0 g/dL 02/23/2024 [...] M.D. LAB BLOOD ADD-ON Performing Organization Address City/[facility]/ZIP Co de Phone Number [facility] [address] [place] [address], [place] FB60 [facility] in [place] [address] [place] [address] * Glucose Tolerance Test, 1 hour (02/23/2024 11:58 AM CDT) Glucose Eliud, 1 Hr, P 183 <140 mg/dL 02/23/2024 6:12 PM CDT OWAT Blood (Blood, Venous) 02/23/2024 11:58 AM CDT 02/23/2024 5:37 PM CDT Cami Adams M.D. LAB BLOOD NON ADD-ON Performing Organization Address City/[facility]/ZIP Co de Phone Number [facility] [address] [place] [address], [place] [facility] in [place] [address] [place] [address] documented in this encounter Visit Diagnoses Diagnosis Multigravida Advanced Maternal Age Affecting Management (HCC) Hypertension Essential Pre-Existing (HCC) documented in this encounter Additional Health Concerns Assessment Noted Time PHQ-9 Depression Total Score: 0 02/23/20 24 10:57 AM CDT documented as of this encounter
== END 2024-04-25 13:05 | disposition home or self-care (01) ==
LOC: US 13:05
PROVIDERS: Visit Provider Obstetrics & Gynecology
DX: O24.419 Gestational diabetes mellitus in pregnancy, unspecified control (principal)
CPT/HCPCS: 76819

== ENCOUNTER 2024-05-02 09:16 | Outpatient (CLI) | payer BC, SELFPAY ==
--- NOTE | 2024-05-02 09:15 | CRLHL7_ITS ---
For Patients: As a result of the Century Cures Act, medical imaging exams and procedure reports are released immediately into your electronic medical record. You may view this report before your referring provider. If you have questions, please contact your health care provider. INDICATION: GDM COMPARISON: 04/25/2024 TECHNIQUE: Real time puckett scale imaging of the fetus was performed. Without non-stress testing. FINDINGS: Sonographic imaging demonstrates a single living intrauterine gestation. Fetus demonstrates a regular cardiac rate of 147 beats per minute. Fetus has a vertex position. The amniotic fluid volume appears normal and there is a single deepest pocket measurement of 4.5 cm. The fetus was active and demonstrated normal breathing movements. There was normal flexion and extension of the trunk and extremities. IMPRESSION: Normal biophysical profile score of 8 out of 8. Dictated by Tonio Llanes MD @ 05/02/2024 12:08:48 PM (Electronically Signed)
--- OUTSIDE RECORDS SUMMARY | 2024-05-02 09:19 | XMS_ITS ---
Author Organization [facility] Address [address] [place] [address] Care Team Providers Care Turf And Grounds Supervisor Name Role Phone Unavailable Unavailable Unavailable Surgery Details Not on file Complications Check Surgery Details section. Procedure Estimated Blood Loss Check Surgery Details section. Procedure Findings Check Surgery Details section. Procedure Specimens Taken Check Surgery Details section.
--- OUTSIDE RECORDS SUMMARY | 2024-05-02 09:19 | XMS_ITS | Encounter Summary ---
Author Organization [facility] Address [address] [place] [address] Care Team Providers Care Classification Inspector Name Role Phone Unavailable Primary Care Provider Unavailabl e Encounter Details Date Type Department Care Team (Latest Contact Info) Description 02/23/2024 10:40 AM CDT - 02/23/2024 11:59 PM CDT Hospital Encounter Department of Laboratory Medicine in [place], [place] [address] [place] [phone] Cami Adams M.D. [address] [place] [phone] Multigravida Advanced Maternal Age Affecting Management (HCC); [...] your living situation today? I have a [facility] place to live 09/22/2023 Education Answer Date Recorded What is the highest level of school you have completed or the highest degree you have received? High school graduate 09/22/2023 Estimated Date of Delivery Comme nts Yes 05/14/2024 Based on Ultraso und Sex and Gender Information Value Date Recorded Sex Assigned at Female 09/22/2023 9:11 AM HR OPERATIONS ADVISOR Gender Identity Female 09/22/2023 9:11 AM HR OPERATIONS ADVISOR Sexual Orientation Straight 09/22/2023 9: 11 AM HR OPERATIONS ADVISOR documented as of this encounter Medications [...] Reflex, Serum (02/23/2024 11:58 AM CDT) Pathologist [facility] Syphilis Total Ab w/ Reflex Nonreactive Nonreactive 02/24/2024 1:04 PM CDT [facility] Comment: No serologic evidence of infection with T. pallidum (syphilis). ??Repeat testing may be considered in patients with suspected acute or primary syphilis in 2-4 weeks. For additional information on interpretation of the syphilis reverse algorithm and results, see: [email or web address] [email or web address]_Serology_[email or web address] Blood (Blood, Venous) 02/23/2024 11:58 AM CDT 02/24/2024 11:19 AM CDT Cami Adams M.D. LAB BLOOD ADD-ON [facility] [address] [place] [address], [facility] in [address] [address] * (ABNORMAL) CBC without Differential (02/23/2024 11:58 AM CDT) Pathologist [facility] Hemoglobin 11.5(L) 11.6 - 15.0 g/dL [...] M.D. LAB BLOOD ADD-ON Performing Organization Address City/[facility]/ZIP Co de Phone Number [facility] [address] [place] [address], [place] [address]60 [facility] in [place] [address] [place] [address] * Glucose Tolerance Test, 1 hour (02/23/2024 11:58 AM CDT) Glucose Eliud, 1 Hr, P 183 <140 mg/dL 02/23/2024 6:12 PM CDT OWAT Blood (Blood, Venous) 02/23/2024 11:58 AM CDT 02/23/2024 5:37 PM CDT Cami Adams M.D. LAB BLOOD NON ADD-ON Performing Organization Address City/[facility]/ZIP Co de Phone Number [facility] [address] [place] [address], [place] [facility] in [place] [address] [place] [address] documented in this encounter Visit Diagnoses Diagnosis Multigravida Advanced Maternal Age Affecting Management (HCC) Hypertension Essential Pre-Existing (HCC) documented in this encounter Additional Health Concerns Assessment Noted Time PHQ-9 Depression Total Score: 0 02/23/20 24 10:57 AM CDT documented as of this encounter
--- OUTSIDE RECORDS SUMMARY | 2024-05-02 09:19 | XMS_ITS | Clinical Summary ---
Author Organization [facility] Address [address] [place] [address] Care Team Providers Care Steward/Stewardess Chief Cargo Vessel Name Role Phone Unavailable Primary Care Provider Unavailabl e Source Comments Patient records contain information from all sites at [facility]. For routine questions regarding patient records, call [phone] during business hours, M-F 8:00 AM - 5:00 PM Central Time. Record requests for emergency care only can be directed to [phone] at any time.[facility] Allergies No known active allergies Medications Medication [...] trimester OB education completed. Pre-reg completed at [facility]. LMP:07/30/23-approximate EDC:05/05/24 provider:contact center director FOB involved:Aly Problem Noted Date Diagnosed Date [...] Orders Only Department of Laboratory Medicine in [place], [place] [address] [place] [address] Cami Adams M.D. Impaired Glucose Tolerance (Primary Dx); Obesity Body Mass Index 30-39.9 Adult; Multigravida Advanced Maternal Age Affecting Management (HCC) 02/23/2024 11:00 AM CDT Routine Department of Obstetrics and Gynecology in [address] [address] Cami Adams M.D. Dettmann, Heather B, R.N. Need Vaccine Immunization Tetanus And Diphtheria Toxoids And Pertussis (Primary Dx); Multigravida Advanced Maternal Age Affecting Management (HCC); Hypertension Essential Pre-Existing (HCC) 02/23/2024 10:40 AM CDT - 02/23/2024 11:59 PM CDT Hospital Encounter Department of Laboratory Medicine in [address] [address] Cami Adams M.D. Multigravida Advanced Maternal Age Affecting Management (HCC); Hypertension Essential Pre-Existing (HCC) Discharge Disposition: Home or Self Care 02/23/2024 10:00 AM CDT Silent Schedule Department of Obstetrics and Gynecology in [address] [address] Cami Adams M.D. Multigravida Advanced Maternal Age [...] living situation today? I have a [facility] place to live 09/22/2023 Education Answer Date Recorded What is the highest level of school you have completed or the highest degree you have received? High school graduate 09/22/2023 Estimated Date of Delivery Comme nts Yes 05/14/2024 Based on Ultraso und Sex and Gender Information Value Date Recorded Sex Assigned at Female 09/22/2023 9:11 AM RESIDENTIAL FEE APPRAISER Gender Identity Female 09/22/2023 9:11 AM RESIDENTIAL FEE APPRAISER Sexual Orientation Straight 09/22/2023 9: 11 AM RESIDENTIAL FEE APPRAISER Last Filed Vital Signs Vital Sign Reading Time Taken Comments Blood Pressure 109/66 02/23/2024 10:54 AM CDT Pulse 91 02/23/2024 10:54 AM CDT Temperature 36.8 ??C (98.2 ??F) 06/23/2018 1:56 PM CD T Respiratory Rate 16 06/23/2018 1:56 PM CDT Oxygen Saturation 99% 10/07/2023 2:06 PM RESIDENTIAL FEE APPRAISER Inhaled Oxygen Concentration - - Weight 92.8 [...] A1C, B Routine 10/14/2023 11: 22 AM RESIDENTIAL FEE APPRAISER Examination Test With Positive Result (HCC) HCV AB SCRN , S Routine 10/14/2023 11:22 AM RESIDENTIAL FEE APPRAISER Examination Test With Positive Result (HCC) HIV-1/-2 AG AND AB SCRN, PLASMA Routine 10/14/2023 11:22 AM RESIDENTIAL FEE APPRAISER Examination Test With Positive Result (HCC) HPV WITH GENOTYPING, PCR, THINPREP Routine 10/07/2023 2:43 PM RESIDENTIAL FEE APPRAISER from Last 3 Months or Most Recently Relevant to Health Maintenance Results * Syphilis Total Antibody with Reflex, Serum (02/23/2024 11:58 AM CDT) Syphilis Total Ab w/ Reflex Nonreactive Nonreactive 02/24/2024 1:04 PM CDT [facility] Comment: No serologic evidence of infection with T. pallidum (syphilis). ??Repeat testing may be considered in patients with suspected acute or primary syphilis in 2-4 weeks. For additional information on interpretation of the syphilis reverse algorithm and results, see: [email or web address] Blood (Blood, Venous) 02/23/2024 11:58 AM CDT 02/24/2024 11:19 AM CDT Cami Adams M.D. LAB BLOOD ADD-ON [facility] [address] [place] [address], [facility] [place] [facility] in [address] [address] * Glucose Tolerance Test, 1 hour (02/23/2024 11:58 AM CDT) Glucose Eliud, 1 Hr, P 183 <140 mg/dL 02/23/2024 6:12 PM CDT OW Blood (Blood, Venous) 02/23/2024 11:58 AM CDT 02/23/2024 5:37 PM CDT Cami Adams M.D. LAB BLOOD NON ADD-ON [facility] [address] [place] [address], [place] [facility] [place] [facility] in [place] [address] [place] [address] * (ABNORMAL) CBC without Differential (02/23/2024 11:58 [...] LAB BLOOD ADD-ON [facility] [place] [facility] [address] [place] [address], [facility] FB60 [facility] [place] [facility] in [place] [address] [facility] [place] [address] * US OB Growth Munguia (02/23/2024 10:39 [...] C Virus Antibody Screen (10/14/2023 11:22 AM RESIDENTIAL FEE APPRAISER) HCV Ab Scrn , S Negative Negative 10/15/2023 9:05 AM RESIDENTIAL FEE APPRAISER [facility] Comment:Qninsk-pf-tlogcu rat io is <1.00. Blood (Blood, Venous) 10/14/2023 11:22 AM RESIDENTIAL FEE APPRAISER 10/15/2023 7:43 AM RESIDENTIAL FEE APPRAISER Neto Parson M.D. LAB MICROBIOLOGY - B LOOD ORDERABLES [facility] [address] [place] [address] [facility] [address] [place] [address] * HIV-1/-2 Ag and Ab Scrn, Plasma (10/14/2023 11:22 AM RESIDENTIAL FEE APPRAISER) HIV Ag/Ab Scrn, P Negative Negative 10/15/2023 12:18 PM RESIDENTIAL FEE APPRAISER [facility] Comment: Negative result does not rule out HIV infection. If exposure to HIV infection occurred <14 days ago, contact the laboratory to request addition of HIV-1/HIV-2 RNA detection , Plasma (HPP12). HIV-1 p24 Ag Scrn, P Negative Negative 10/15/2023 12:18 PM RESIDENTIAL FEE APPRAISER [facility] Comment: Negative result does not rule out HIV infection. If exposure to HIV infection occurred <14 days ago, contact the laboratory to request addition of HIV-1/HIV-2 RNA detection , Plasma (HPP12). HIV-1 Ab Scrn, P Negative Negative 10/15/2023 12:18 PM RESIDENTIAL FEE APPRAISER [facility] Comment: Negative result does not rule out HIV infection. If exposure to HIV infection occurred <14 days ago, contact the laboratory to request addition of HIV-1/HIV-2 RNA detection , Plasma (HPP12). HIV-2 Ab Scrn, P Negative Negative 10/15/2023 12:18 PM RESIDENTIAL FEE APPRAISER [facility] Comment: Negative result does not rule out HIV infection. If exposure to HIV infection occurred <14 days ago, contact the laboratory to request addition of HIV-1/HIV-2 RNA detection , Plasma (HPP12). Blood (Blood, Venous) 10/14/2023 11:22 AM RESIDENTIAL FEE APPRAISER 10/15/2023 10:34 AM RESIDENTIAL FEE APPRAISER Neto Parson M.D. LAB MICROBIOLOGY - B LOOD ORDERABLES Performing Organization Address City/[facility]/ZIP Co de Phone Number [facility] [address] [place] [address], [facility] [place] [facility] in [place] [address] [place] [address] * Hemoglobin A1c (10/14/2023 11:22 AM RESIDENTIAL FEE APPRAISER) Hemoglobin A1c, B 5.4 4.2 - 5.6 % 10/14/2023 1:38 PM RESIDENTIAL FEE APPRAISER OWAT Blood (Blood, Venous) 10/14/2023 11:22 AM RESIDENTIAL FEE APPRAISER 10/14/2023 12:37 PM RESIDENTIAL FEE APPRAISER Neto Parson M.D. LAB BLOOD ADD-ON Performing Organization Address [facility] Co de Phone Number [facility] [address] [place] [address], [facility] OWAT [facility] in [place] [address] [place] [address] * HPV with Genotyping, PCR, ThinPrep (10/07/2023 2:43 PM RESIDENTIAL FEE APPRAISER) HPV with Genotyping, ThinPrep, PCR Negative Negative 10/08/2023 3:48 PM RESIDENTIAL FEE APPRAISER [facility] Comment: Negative for high risk HPV [...] correlated with patient's history, clinical presentation, and AUTOMATIC LEHR OPERATOR cytology report. 10/07/2023 2:43 PM RESIDENTIAL FEE APPRAISER 10/08/2023 7:14 AM RESIDENTIAL FEE APPRAISER Neto Parson M.D. LAB MICROBIOLOGY - G ENERAL ORDERABLES [facility] [address] [place] [address], [facility] [address] [address] from Last 3 Months or Most Recently Relevant to Health Maintenance
--- OUTSIDE RECORDS SUMMARY | 2024-05-02 09:19 | XMS_ITS | Referral Summary ---
Author Organization [facility] Address [address] [place] [address] Care Team Providers Care Bailer Operators Supervisor Name Role Phone Unavailable Primary Care Provider Unavailabl e Source Comments Patient records contain information from all sites at [facility]. For routine questions regarding patient records, call [phone] during business hours, M-F 8:00 AM - 5:00 PM Central Time. Record requests for emergency care only can be directed to [phone] at any time.[facility] Encounters Date Type Department Care Team Description 03/03/2024 Orders Only Department of Laboratory Medicine in [address] [phone] Cami Adams M.D. Impaired Glucose Tolerance (Primary Dx); Obesity Body Mass Index 30-39.9 Adult; Multigravida Advanced Maternal Age Affecting Management (HCC) 02/23/2024 11:00 AM CDT Routine Department of Obstetrics and Gynecology in [address] [phone] Cami Adams M.D. Dettmann, Heather B, R.N. Need Vaccine Immunization Tetanus And Diphtheria Toxoids And Pertussis (Primary Dx); Multigravida Advanced Maternal Age Affecting Management (HCC); Hypertension Essential Pre-Existing (HCC) 02/23/2024 10:00 AM CDT Silent Schedule Department of Obstetrics and Gynecology in [address] [phone] Cami Adams M.D. Multigravida Advanced Maternal Age Affecting Management (HCC); Hypertension Essential Pre-Existing (HCC) 02/23/2024 10:40 AM CDT - 02/23/2024 11:59 PM CDT Hospital Encounter Department of Laboratory Medicine in [place] [address] [address] [facility] [address] Cami Adams M.D. Multigravida Advanced Maternal Age [...] trimester OB education completed. Pre-reg completed at [facility]. LMP:10/13/23-approximate EDC:05/05/24 [place] provider:referral management liaison FOB involved:Aly Problem Noted Date Diagnosed Date [...] Sex Assigned at Female 09/22/2023 9:11 AM MATERIAL STOCKKEEPER YARD Gender Identity Female 09/22/2023 9:11 AM MATERIAL STOCKKEEPER YARD Sexual Orientation Straight 09/22/2023 9: 11 AM MATERIAL STOCKKEEPER YARD Last Filed Vital Signs Vital Sign Reading Time Taken Comments Blood Pressure 109/66 02/23/2024 10:54 AM CDT Pulse 91 02/23/2024 10:54 AM CDT Temperature 36.8 ??C (98.2 ??F) 06/23/2018 1:56 PM CD T Respiratory Rate 16 06/23/2018 1:56 PM CDT Oxygen Saturation 99% 10/07/2023 2:06 PM MATERIAL STOCKKEEPER YARD Inhaled Oxygen Concentration - - Weight 92.8 [...] A1C, B Routine 10/14/2023 11: 22 AM MATERIAL STOCKKEEPER YARD Examination Test With Positive Result (HCC) HCV AB SCRN , S Routine 10/14/2023 11:22 AM MATERIAL STOCKKEEPER YARD Examination Test With Positive Result (HCC) HIV-1/-2 AG AND AB SCRN, PLASMA Routine 10/14/2023 11:22 AM MATERIAL STOCKKEEPER YARD Examination Test With Positive Result (HCC) HPV WITH GENOTYPING, PCR, THINPREP Routine 10/07/2023 2:43 PM MATERIAL STOCKKEEPER YARD from Last 3 Months or Most Recently Relevant to Health Maintenance Results * Syphilis Total Antibody with Reflex, Serum (02/23/2024 11:58 AM CDT) Syphilis Total Ab w/ Reflex Nonreactive Nonreactive 02/24/2024 1:04 PM CDT [facility] Comment: No serologic evidence of infection with T. pallidum (syphilis). ??Repeat testing may be considered in patients with suspected acute or primary syphilis in 2-4 weeks. For additional information on interpretation of the syphilis reverse algorithm and results, see: [email or web address]/[email or web address]_Serology_Algorithm.pdf Blood (Blood, Venous) 02/23/2024 11:58 AM CDT 02/24/2024 11:19 AM CDT Cami Adams M.D. LAB BLOOD ADD-ON [facility] [address] [place] [address], [facility] [place] [address] * Glucose Tolerance Test, 1 hour (02/23/2024 11:58 AM CDT) Pathologist [facility] Glucose Eliud, 1 Hr, P 183 <140 mg/dL 02/23/2024 6:12 PM CDT OWAT Blood (Blood, Venous) 02/23/2024 11:58 AM CDT 02/23/2024 5:37 PM CDT Cami Adams M.D. LAB BLOOD NON ADD-ON [facility] [address] [place] [address], [place] [facility] in [place] [address] [place] [address] * (ABNORMAL) CBC without Differential (02/23/2024 11:58 [...] CDT Cami Adams M.D. LAB BLOOD ADD-ON [facility] [address] [place] [address], [facility] FB60 [facility] in [place] [address] [facility] [place] [address] * US OB Growth Munguia (02/23/2024 10:39 [...] Established Gestational age: 28 w 3 d, ZCAHARY: 05/14/2024 Presentation: Breech Placenta Location: Anterior Amniotic [...] C Virus Antibody Screen (10/14/2023 11:22 AM MATERIAL STOCKKEEPER YARD) HCV Ab Scrn , S Negative Negative 10/15/2023 9:05 AM MATERIAL STOCKKEEPER YARD [facility] Comment:Vajgve-wg-iklgat rat io is <1.00. Blood (Blood, Venous) 10/14/2023 11:22 AM MATERIAL STOCKKEEPER YARD 10/15/2023 7:43 AM MATERIAL STOCKKEEPER YARD Neto Parson M.D. LAB MICROBIOLOGY - B LOOD ORDERABLES [facility] [address] [place] [address] [facility] [address] [place] [address] * HIV-1/-2 Ag and Ab Scrn, Plasma (10/14/2023 11:22 AM MATERIAL STOCKKEEPER YARD) HIV Ag/Ab Scrn, P Negative Negative 10/15/2023 12:18 PM MATERIAL STOCKKEEPER YARD [facility] Comment: Negative result does not rule out HIV infection. If exposure to HIV infection occurred <14 days ago, contact the laboratory to request addition of HIV-1/HIV-2 RNA detection , Plasma (HPP12). HIV-1 p24 Ag Scrn, P Negative Negative 10/15/2023 12:18 PM MATERIAL STOCKKEEPER YARD [facility] Comment: Negative result does not rule out HIV infection. If exposure to HIV infection occurred <14 days ago, contact the laboratory to request addition of HIV-1/HIV-2 RNA detection , Plasma (HPP12). HIV-1 Ab Scrn, P Negative Negative 10/15/2023 12:18 PM MATERIAL STOCKKEEPER YARD [facility] Comment: Negative result does not rule out HIV infection. If exposure to HIV infection occurred <14 days ago, contact the laboratory to request addition of HIV-1/HIV-2 RNA detection , Plasma (HPP12). HIV-2 Ab Scrn, P Negative Negative 10/15/2023 12:18 PM MATERIAL STOCKKEEPER YARD [facility] Comment: Negative result does not rule out HIV infection. If exposure to HIV infection occurred <14 days ago, contact the laboratory to request addition of HIV-1/HIV-2 RNA detection , Plasma (HPP12). Blood (Blood, Venous) 10/14/2023 11:22 AM MATERIAL STOCKKEEPER YARD 10/15/2023 10:34 AM MATERIAL STOCKKEEPER YARD Neto Parson M.D. LAB MICROBIOLOGY - B LOOD ORDERABLES Performing Organization Address City/[facility]/ZIP Co de Phone Number [facility] [address] [place] [address], [facility] in [place] [address] [place] [address] * Hemoglobin A1c (10/14/2023 11:22 AM MATERIAL STOCKKEEPER YARD) Hemoglobin A1c, B 5.4 4.2 - 5.6 % 10/14/2023 1:38 PM MATERIAL STOCKKEEPER YARD OWAT Blood (Blood, Venous) 10/14/2023 11:22 AM MATERIAL STOCKKEEPER YARD 10/14/2023 12:37 PM MATERIAL STOCKKEEPER YARD Neto Parson M.D. LAB BLOOD ADD-ON Performing Organization Address [facility] Co de Phone Number [facility] [address] [place] [address], [place] OW[place] [facility] [place] [address] [place] [address] * HPV with Genotyping, PCR, ThinPrep (10/07/2023 2:43 PM MATERIAL STOCKKEEPER YARD) HPV with Genotyping, ThinPrep, PCR Negative Negative 10/08/2023 3:48 PM MATERIAL STOCKKEEPER YARD [facility] Comment: Negative for high risk HPV [...] correlated with patient's history, clinical presentation, and COMPONENT TECHNICIAN cytology report. 10/07/2023 2:43 PM MATERIAL STOCKKEEPER YARD 10/08/2023 7:14 AM MATERIAL STOCKKEEPER YARD Neto Parson M.D. LAB MICROBIOLOGY - G ENERAL ORDERABLES [facility] [address] [place] [address], [facility] [address] [address] from Last 3 Months or Most Recently Relevant to Health Maintenance
--- OUTSIDE RECORDS SUMMARY | 2024-05-02 09:19 | XMS_ITS | Encounter Summary ---
Author Organization [facility] Address [address] [place] [address] Care Team Providers Care Miniature Train Driver Name Role Phone Unavailable Primary Care Provider Unavailabl e Encounter Details Date Type Department Care Team (Late st Contact Info) Description 03/03/2024 Orders Only Department of Laboratory Medicine in [place], [place] [address] [place] [address] Cami Adams M.D. [address] [place] [phone] Impaired Glucose Tolerance (Primary Dx); Obesity Body [...] your living situation today? I have a [facility] place to live 09/22/2023 Education Answer Date Recorded What is the highest level of school you have completed or the highest degree you have received? High school graduate 09/22/2023 Estimated Date of Delivery Comme nts Yes 05/14/2024 Based on Ultraso und Sex and Gender Information Value Date Recorded Sex Assigned at Female 09/22/2023 9:11 AM ANIMAL TRAINER SUPERVISOR Gender Identity Female 09/22/2023 9:11 AM ANIMAL TRAINER SUPERVISOR Sexual Orientation Straight 09/22/2023 9: 11 AM ANIMAL TRAINER SUPERVISOR documented as of this encounter Plan [...]
--- OUTSIDE RECORDS SUMMARY | 2024-05-02 09:19 | XMS_ITS | Encounter Summary ---
Author Organization [facility] Address [address] [place] [address] Care Team Providers Care Fruit Vendor Name Role Phone Unavailable Primary Care Provider Unavailabl e Encounter Details Date Type Department Care Team (Latest Contact Info) Description 02/23/2024 10:00 AM CDT Silent Schedule Department of Obstetrics and Gynecology in [place], [place] [address] [place] [address] Cami Adams M.D. [address] [place] [phone] Multigravida Advanced Maternal Age Affecting Management (HCC); [...] your living situation today? I have a [facility] place to live 09/22/2023 Education Answer Date Recorded What is the highest level of school you have completed or the highest degree you have received? High school graduate 09/22/2023 Estimated Date of Delivery Comme nts Yes 05/14/2024 Based on Ultraso und Sex and Gender Information Value Date Recorded Sex Assigned at Female 09/22/2023 9:11 AM MEDICAL ILLUSTRATOR Gender Identity Female 09/22/2023 9:11 AM MEDICAL ILLUSTRATOR Sexual Orientation Straight 09/22/2023 9: 11 AM MEDICAL ILLUSTRATOR documented as of this encounter Plan of [...]
--- OUTSIDE RECORDS SUMMARY | 2024-05-02 09:19 | XMS_ITS | Encounter Summary ---
Author Organization [facility] Address [address] [place] [address] Care Team Providers Care Driveway Sealer Name Role Phone Unavailable Primary Care Provider Unavailabl e Reason for Visit * Reason Comments Nurse Visit 28 week RN education visit * Outpatient (Routine) - Authorized Specialty Diagnoses / Procedures Referred By Ernesto heller Referred To Contact Obstetrics and Gynecology Diagnoses Multigravida Advanced Maternal Age Affecting Management (HCC) Hypertension Essential Pre-Existing (HCC) Cami Adams M.D. [address] [place] [address] [facility] Referral ID Status Reason Start Date Expiration Date V isits Requested Visits Authorized [id number] Authorized 12/28/2023 06/28/2025 3 3 Encounter Details Date Type Department Care Team (Latest Contact Info) Description 02/23/2024 11:00 AM CDT Routine Department of Obstetrics and Gynecology in [address] [place] [address] Cami Adams M.D. [address] [place] [address] Deepa Del Cid RForrestNForrest Need [...] Sex Assigned at Female 09/22/2023 9:11 AM PULP DRIER FIRER Gender Identity Female 09/22/2023 9:11 AM PULP DRIER FIRER Sexual Orientation Straight 09/22/2023 9: 11 AM PULP DRIER FIRER documented as of this encounter Last Filed [...] relief options werealso discussed in detail. 6.) [place] education was discussed in detail, including safe sleeping positions/ SIDS, medications, and screening. [place] provider is collections analyst. She is having a boy. She is planning to breastfeed. Signs and symptoms of mastitis were also reviewed. 7.) family planning was reviewed and she is planning on unsure at this time. 8.) Patient is planning on transferring care to [place] and delivering there. Made her next appointment there, 03/23/24. 2nd/3rd Trimester education provided today using the ACOG list of recommended antepartum education topics and in accordance with [facility] guidelines. Patient states understanding to [...]
--- OUTSIDE RECORDS SUMMARY | 2024-05-02 09:19 | XMS_ITS | Clinical Summary ---
Author Organization [facility] Address [place], [place] [address] Care Team Providers Care Pipelaying Fitter Name Role Phone [facility] Primary Care Provider [phone] Allergies No known active allergies Medications Medication [...] daily. 01/20/2021 Active omeprazole 20 mg tabletIndications:[place] right-sided low back pain without sciatica Take 1 Tablet (20 mg) by mouth once daily before a meal. 10 Tablet 01/21/2022 Active ondansetron (ZOFRAN ODT) 4 mg disintegrating tabletIndications:[place] right-sided low back pain without sciatica Place [...] 9 SLIM Z,BG JAKUB Wang Complications:None [facility] Current Summary Episode Dates Number of Fetuses Estimated Date of Delivery 2023 - Present (05/02/2024) Unknown Last Filed Vital Signs Vital Sign [...] st Contact Info) Description 05/05/2024 Hospital Encounter [facility] [address] [facility] [place] [address] Neto Parson MD [address] [facility] [place] [address] Health Maintenance Due Date Last Done Comments [...] 12:15 PM 05/14/2018 1:40 PM Care Teams Pipelaying Fitter Relationship Specialty Start Date End Date [facility] [address] [place] [address] PCP - General 04/14/24
== END 2024-05-02 09:17 | disposition home or self-care (01) ==
LOC: US 09:16
PROVIDERS: Visit Provider Obstetrics & Gynecology
DX: O24.419 Gestational diabetes mellitus in pregnancy, unspecified control (principal)
CPT/HCPCS: 76819

== ENCOUNTER 2024-05-06 16:07 | Inpatient (IN) | payer BC, SELFPAY ==
[2024-05-06] VITALS (8 sets, daily range): BP systolic 112–126; BP diastolic 72–80; PULSE 80–117; RESP 18; TEMP 36.6–36.9; O2SAT 98; BMI 36.6
--- OUTSIDE RECORDS SUMMARY | 2024-05-06 16:11 | XMS_ITS ---
Author Organization [facility] Address [address] [place] [address] Care Team Providers Care Mental Health Advanced Practice Nurse Name Role Phone Unavailable Unavailable Unavailable Surgery Details Not on file Complications Check Surgery Details section. Procedure Estimated Blood Loss Check Surgery Details section. Procedure Findings Check Surgery Details section. Procedure Specimens Taken Check Surgery Details section.
--- OUTSIDE RECORDS SUMMARY | 2024-05-06 16:11 | XMS_ITS | Clinical Summary ---
Author Organization [facility] Address [address] [place] [address] Care Team Providers Care Staff Antisubmarine Officer Name Role Phone Unavailable Primary Care Provider Unavailabl e Source Comments Patient records contain information from all sites at [facility]. For routine questions regarding patient records, call [phone] during business hours, M-F 8:00 AM - 5:00 PM Central Time. Record requests for emergency care only can be directed to [phone] at any time.[facility] Allergies No known active allergies Medications Medication [...] trimester OB education completed. Pre-reg completed at [facility]. LMP:07/30/23-approximate EDC:05/05/24 [place] provider:patient information coordinator FOB involved:Aly Problem Noted Date Diagnosed Date Constipation 01/20/2024 Overview (01/20/2024): Notes significant improvement in constipation symptoms with use of MiraLax. Multigravida Advanced Matern al Age Affecting Management 10/07/2023 Overview (11/11/2023): NIPS and carrier screening normal Hypertension Essential Pre-Existing Overview (01/20/2024): Chronic hypertension, transitioned to nifedipine at onset of 10/07: Holding nifedipine given relatively low blood pressure, will follow Baseline labs normal. Low-dose aspirin initiated Counseling Sterilization 10/07/2023 Overview (10/07/2023): as a result of contraception failure Strongly [...] Orders Only Department of Laboratory Medicine in [address] [address] Cami Adams M.D. Impaired Glucose Tolerance (Primary Dx); Obesity Body Mass Index 30-39.9 Adult; Multigravida Advanced Maternal Age Affecting Management (HCC) 02/23/2024 11:00 AM CDT Routine Department of Obstetrics and Gynecology in [address] [address] Cami Adams M.D. Dettmann, Heather B, R.N. Need Vaccine Immunization Tetanus And Diphtheria Toxoids And Pertussis (Primary Dx); Multigravida Advanced Maternal Age Affecting Management (HCC); Hypertension Essential Pre-Existing (HCC) 02/23/2024 10:40 AM CDT - 02/23/2024 11:59 PM CDT Hospital Encounter Department of Laboratory Medicine in [address] [address] Cami Adams M.D. Multigravida Advanced Maternal Age Affecting Management (HCC); Hypertension Essential Pre-Existing (HCC) Discharge Disposition: Home or Self Care 02/23/2024 10:00 AM CDT Silent Schedule Department of Obstetrics and Gynecology in [address] [address] Cami Adams M.D. Multigravida Advanced Maternal Age [...] Sex Assigned at Female 09/22/2023 9:11 AM RESTAURANT MANAGING PARTNER Gender Identity Female 09/22/2023 9:11 AM RESTAURANT MANAGING PARTNER Sexual Orientation Straight 09/22/2023 9: 11 AM RESTAURANT MANAGING PARTNER Last Filed Vital Signs Vital Sign Reading Time Taken Comments Blood Pressure 109/66 02/23/2024 10:54 AM CDT Pulse 91 02/23/2024 10:54 AM CDT Temperature 36.8 ??C (98.2 ??F) 06/23/2018 1:56 PM CD T Respiratory Rate 16 06/23/2018 1:56 PM CDT Oxygen Saturation 99% 10/07/2023 2:06 PM RESTAURANT MANAGING PARTNER Inhaled Oxygen Concentration - - Weight 92.8 [...] A1C, B Routine 10/14/2023 11: 22 AM RESTAURANT MANAGING PARTNER Examination Test With Positive Result (HCC) HCV AB SCRN , S Routine 10/14/2023 11:22 AM RESTAURANT MANAGING PARTNER Examination Test With Positive Result (HCC) HIV-1/-2 AG AND AB SCRN, PLASMA Routine 10/14/2023 11:22 AM RESTAURANT MANAGING PARTNER Examination Test With Positive Result (HCC) HPV WITH GENOTYPING, PCR, THINPREP Routine 10/07/2023 2:43 PM RESTAURANT MANAGING PARTNER from Last 3 Months or Most Recently Relevant to Health Maintenance Results * Syphilis Total Antibody with Reflex, Serum (02/23/2024 11:58 AM CDT) Syphilis Total Ab w/ Reflex Nonreactive Nonreactive 02/24/2024 1:04 PM CDT [facility] Comment: No serologic evidence of infection with T. pallidum (syphilis). ??Repeat testing may be considered in patients with suspected acute or primary syphilis in 2-4 weeks. For additional information on interpretation of the syphilis reverse algorithm and results, see: [email or web address] Blood (Blood, Venous) 02/23/2024 11:58 AM CDT 02/24/2024 11:19 AM CDT Cami Adams M.D. LAB BLOOD ADD-ON [facility] [address] [place] [address], [facility] [place] [address] * Glucose Tolerance Test, 1 hour (02/23/2024 11:58 AM CDT) Glucose Eliud, 1 Hr, P 183 <140 mg/dL 02/23/2024 6:12 PM CDT [facility] Blood (Blood, Venous) 02/23/2024 11:58 AM CDT 02/23/2024 5:37 PM CDT Cami Adams M.D. LAB BLOOD NON ADD-ON [facility] [address] [place] [address], [facility] OWAT [facility] in [place] [address] [place] [address] * (ABNORMAL) CBC without Differential (02/23/2024 11:58 [...] CDT Cami Adams M.D. LAB BLOOD ADD-ON [facility] [address] [place] [address], [facility] FB60 [facility] [place] [address] [place] [address] * US OB Growth Munguia (02/23/2024 10:39 [...] C Virus Antibody Screen (10/14/2023 11:22 AM RESTAURANT MANAGING PARTNER) HCV Ab Scrn , S Negative Negative 10/15/2023 9:05 AM RESTAURANT MANAGING PARTNER [facility] Comment:Ukwtad-[id number] rat io is <1.00. Blood (Blood, Venous) 10/14/2023 11:22 AM RESTAURANT MANAGING PARTNER 10/15/2023 7:43 AM RESTAURANT MANAGING PARTNER Neto Parson M.D. LAB MICROBIOLOGY - B LOOD ORDERABLES [facility] [address] [place] [address] [facility] [address] [place] [address] * HIV-1/-2 Ag and Ab Scrn, Plasma (10/14/2023 11:22 AM RESTAURANT MANAGING PARTNER) HIV Ag/Ab Scrn, P Negative Negative 10/15/2023 12:18 PM RESTAURANT MANAGING PARTNER [facility] Comment: Negative result does not rule out HIV infection. If exposure to HIV infection occurred <14 days ago, contact the laboratory to request addition of HIV-1/HIV-2 RNA detection , Plasma (HPP12). HIV-1 p24 Ag Scrn, P Negative Negative 10/15/2023 12:18 PM RESTAURANT MANAGING PARTNER [facility] Comment: Negative result does not rule out HIV infection. If exposure to HIV infection occurred <14 days ago, contact the laboratory to request addition of HIV-1/HIV-2 RNA detection , Plasma (HPP12). HIV-1 Ab Scrn, P Negative Negative 10/15/2023 12:18 PM RESTAURANT MANAGING PARTNER [facility] Comment: Negative result does not rule out HIV infection. If exposure to HIV infection occurred <14 days ago, contact the laboratory to request addition of HIV-1/HIV-2 RNA detection , Plasma (HPP12). HIV-2 Ab Scrn, P Negative Negative 10/15/2023 12:18 PM RESTAURANT MANAGING PARTNER [facility] Comment: Negative result does not rule out HIV infection. If exposure to HIV infection occurred <14 days ago, contact the laboratory to request addition of HIV-1/HIV-2 RNA detection , Plasma (HPP12). Blood (Blood, Venous) 10/14/2023 11:22 AM RESTAURANT MANAGING PARTNER 10/15/2023 10:34 AM RESTAURANT MANAGING PARTNER Neto Parson M.D. LAB MICROBIOLOGY - B LOOD ORDERABLES Performing Organization Address [facility]/ZIP Co de Phone Number [facility] [address] [place] [address], [facility] [place] [address] [place] [address] * Hemoglobin A1c (10/14/2023 11:22 AM RESTAURANT MANAGING PARTNER) Hemoglobin A1c, B 5.4 4.2 - 5.6 % 10/14/2023 1:38 PM RESTAURANT MANAGING PARTNER [facility] Blood (Blood, Venous) 10/14/2023 11:22 AM RESTAURANT MANAGING PARTNER 10/14/2023 12:37 PM RESTAURANT MANAGING PARTNER Neto Parson M.D. LAB BLOOD ADD-ON Performing Organization Address [facility] Co de Phone Number [facility] [address] [place] [address], [place] OWAT [facility] in [place] [address] [place] [address] * HPV with Genotyping, PCR, ThinPrep (10/07/2023 2:43 PM RESTAURANT MANAGING PARTNER) HPV with Genotyping, ThinPrep, PCR Negative Negative 10/08/2023 3:48 PM RESTAURANT MANAGING PARTNER [facility] Comment: Negative for high risk HPV [...] correlated with patient's history, clinical presentation, and LINING INSERTER cytology report. 10/07/2023 2:43 PM RESTAURANT MANAGING PARTNER 10/08/2023 7:14 AM RESTAURANT MANAGING PARTNER Neto Parson M.D. LAB MICROBIOLOGY - G ENERAL ORDERABLES [facility] [address] [place] [address], [facility] [address] [address] from Last 3 Months or Most Recently Relevant to Health Maintenance
--- OUTSIDE RECORDS SUMMARY | 2024-05-06 16:11 | XMS_ITS | Referral Summary ---
Author Organization [facility] Address [address] [place] [address] Care Team Providers Care Valet Service Attendant Name Role Phone Unavailable Primary Care Provider Unavailabl e Source Comments Patient records contain information from all sites at [facility]. For routine questions regarding patient records, call [phone] during business hours, M-F 8:00 AM - 5:00 PM Central Time. Record requests for emergency care only can be directed to [phone] at any time.[facility] Encounters Date Type Department Care Team Description 03/03/2024 Orders Only Department of Laboratory Medicine in [address] [phone] Cami Adams M.D. Impaired Glucose Tolerance (Primary Dx); Obesity Body Mass Index 30-39.9 Adult; Multigravida Advanced Maternal Age Affecting Management (HCC) 02/23/2024 11:00 AM CDT Routine Department of Obstetrics and Gynecology in [address] [phone] Cami Adams M.D. Dettmann, Heather B, R.N. Need Vaccine Immunization Tetanus And Diphtheria Toxoids And Pertussis (Primary Dx); Multigravida Advanced Maternal Age Affecting Management (HCC); Hypertension Essential Pre-Existing (HCC) 02/23/2024 10:00 AM CDT Silent Schedule Department of Obstetrics and Gynecology in [address] [phone] Cami Adams M.D. Multigravida Advanced Maternal Age Affecting Management (HCC); Hypertension Essential Pre-Existing (HCC) 02/23/2024 10:40 AM CDT - 02/23/2024 11:59 PM CDT Hospital Encounter Department of Laboratory Medicine in [place] [address] [address] [facility] [place] [place] [address] Cami Adams M.D. Multigravida Advanced Maternal Age [...] trimester OB education completed. Pre-reg completed at [facility]. LMP:10/13/23-approximate EDC:05/05/24 [place] provider:semiconductor dies loader FOB involved:Aly Problem Noted Date Diagnosed Date [...] your living situation today? [facility] 09/22/2023 Education Answer Date Recorded What is the highest level of school you have completed or the highest degree you have received? High school graduate 09/22/2023 Estimated Date of Delivery Comme nts Yes 05/14/2024 Based on Ultraso und Sex and Gender Information Value Date Recorded Sex Assigned at Female 09/22/2023 9:11 AM ICE SKATER Gender Identity Female 09/22/2023 9:11 AM ICE SKATER Sexual Orientation Straight 09/22/2023 9: 11 AM ICE SKATER Last Filed Vital Signs Vital Sign Reading Time Taken Comments Blood Pressure 109/66 02/23/2024 10:54 AM CDT Pulse 91 02/23/2024 10:54 AM CDT Temperature 36.8 ??C (98.2 ??F) 06/23/2018 1:56 PM CD T Respiratory Rate 16 06/23/2018 1:56 PM CDT Oxygen Saturation 99% 10/07/2023 2:06 PM ICE SKATER Inhaled Oxygen Concentration - - Weight 92.8 [...] A1C, B Routine 10/14/2023 11: 22 AM ICE SKATER Examination Test With Positive Result (HCC) HCV AB SCRN , S Routine 10/14/2023 11:22 AM ICE SKATER Examination Test With Positive Result (HCC) HIV-1/-2 AG AND AB SCRN, PLASMA Routine 10/14/2023 11:22 AM ICE SKATER Examination Test With Positive Result (HCC) HPV WITH GENOTYPING, PCR, THINPREP Routine 10/07/2023 2:43 PM ICE SKATER from Last 3 Months or Most Recently Relevant to Health Maintenance Results * Syphilis Total Antibody with Reflex, Serum (02/23/2024 11:58 AM CDT) Syphilis Total Ab w/ Reflex Nonreactive Nonreactive 02/24/2024 1:04 PM CDT [facility] Comment: No serologic evidence of infection with T. pallidum (syphilis). ??Repeat testing may be considered in patients with suspected acute or primary syphilis in 2-4 weeks. For additional information on interpretation of the syphilis reverse algorithm and results, see: [email or web address] Blood (Blood, Venous) 02/23/2024 11:58 AM CDT 02/24/2024 11:19 AM CDT Cami Adams M.D. LAB BLOOD ADD-ON Performing Organization Address City/[facility]/ZIP Co de Phone Number [facility] [address] [place] [address], [facility] in [address] [address] * Glucose Tolerance Test, 1 hour (02/23/2024 11:58 AM CDT) Glucose Eliud, 1 Hr, P 183 <140 mg/dL 02/23/2024 6:12 PM CDT [facility] Blood (Blood, Venous) 02/23/2024 11:58 AM CDT 02/23/2024 5:37 PM CDT Cami Adams M.D. LAB BLOOD NON ADD-ON [facility] [address] [place] [address], [facility] OWAT [facility] in [place] [address] [place] [address] * (ABNORMAL) CBC without Differential (02/23/2024 11:58 [...] CDT Cami Adams M.D. LAB BLOOD ADD-ON [facility] [address] [place] [address], [facility] FB60 [facility] in [place] [address] [place] [address] * US OB Growth Munguia (02/23/2024 10:39 [...] C Virus Antibody Screen (10/14/2023 11:22 AM ICE SKATER) HCV Ab Scrn , S Negative Negative 10/15/2023 9:05 AM ICE SKATER [facility] Comment:Qpoygj-yu-bqszzj rat io is <1.00. Blood (Blood, Venous) 10/14/2023 11:22 AM ICE SKATER 10/15/2023 7:43 AM ICE SKATER Neto Parson M.D. LAB MICROBIOLOGY - B LOOD ORDERABLES Performing Organization Address City/State/[facility] Co de Phone Number [facility] [address] [place] [address] [facility] [address] [place] [address] * HIV-1/-2 Ag and Ab Scrn, Plasma (10/14/2023 11:22 AM ICE SKATER) HIV Ag/Ab Scrn, P Negative Negative 10/15/2023 12:18 PM ICE SKATER [facility] Comment: Negative result does not rule out HIV infection. If exposure to HIV infection occurred <14 days ago, contact the laboratory to request addition of HIV-1/HIV-2 RNA detection , Plasma (HPP12). HIV-1 p24 Ag Scrn, P Negative Negative 10/15/2023 12:18 PM ICE SKATER [facility] Comment: Negative result does not rule out HIV infection. If exposure to HIV infection occurred <14 days ago, contact the laboratory to request addition of HIV-1/HIV-2 RNA detection , Plasma (HPP12). HIV-1 Ab Scrn, P Negative Negative 10/15/2023 12:18 PM ICE SKATER [facility] Comment: Negative result does not rule out HIV infection. If exposure to HIV infection occurred <14 days ago, contact the laboratory to request addition of HIV-1/HIV-2 RNA detection , Plasma (HPP12). HIV-2 Ab Scrn, P Negative Negative 10/15/2023 12:18 PM ICE SKATER [facility] Comment: Negative result does not rule out HIV infection. If exposure to HIV infection occurred <14 days ago, contact the laboratory to request addition of HIV-1/HIV-2 RNA detection , Plasma (HPP12). Blood (Blood, Venous) 10/14/2023 11:22 AM ICE SKATER 10/15/2023 10:34 AM ICE SKATER Neto Parson M.D. LAB MICROBIOLOGY - B LOOD ORDERABLES Performing Organization Address City/[facility]/ZIP Co de Phone Number [facility] [address] [place] [address], [facility] in [address] [address] * Hemoglobin A1c (10/14/2023 11:22 AM ICE SKATER) Hemoglobin A1c, B 5.4 4.2 - 5.6 % 10/14/2023 1:38 PM ICE SKATER OW Blood (Blood, Venous) 10/14/2023 11:22 AM ICE SKATER 10/14/2023 12:37 PM ICE SKATER Neto Parson M.D. LAB BLOOD ADD-ON Performing Organization Address [facility] Co de Phone Number [facility] [address] [place] [address], [place] [address] [facility] in [place] [address] [place] [address] * HPV with Genotyping, PCR, ThinPrep (10/07/2023 2:43 PM ICE SKATER) HPV with Genotyping, ThinPrep, PCR Negative Negative 10/08/2023 3:48 PM ICE SKATER TO Comment: Negative for high risk HPV by [...] correlated with patient's history, clinical presentation, and QUALITY ASSURANCE CONSULTANT cytology report. 10/07/2023 2:43 PM ICE SKATER 10/08/2023 7:14 AM ICE SKATER Neto Parson M.D. LAB MICROBIOLOGY - G ENERAL ORDERABLES [facility] [address] [place] [address], [facility] [address] [place] [address] from Last 3 Months or Most Recently Relevant to Health Maintenance
--- OUTSIDE RECORDS SUMMARY | 2024-05-06 16:12 | XMS_ITS | Encounter Summary ---
Author Organization [facility] Address [address] [place] [address] Care Team Providers Care Outcomes Analyst Name Role Phone Unavailable Primary Care Provider Unavailabl e Encounter Details Date Type Department Care Team (Late st Contact Info) Description 03/03/2024 Orders Only Department of Laboratory Medicine in [place], [place] [address] [place] [address] Cami Adams M.D. [address] [place] [phone] Impaired Glucose Tolerance (Primary Dx); Obesity Body [...] your living situation today? I have a [facility] place to live 09/22/2023 Education Answer Date Recorded What is the highest level of school you have completed or the highest degree you have received? High school graduate 09/22/2023 Estimated Date of Delivery Comme nts Yes 05/14/2024 Based on Ultraso und Sex and Gender Information Value Date Recorded Sex Assigned at Female 09/22/2023 9:11 AM METAL INSPECTOR Gender Identity Female 09/22/2023 9:11 AM METAL INSPECTOR Sexual Orientation Straight 09/22/2023 9: 11 AM METAL INSPECTOR documented as of this encounter Plan of [...]
--- OUTSIDE RECORDS SUMMARY | 2024-05-06 16:12 | XMS_ITS | Encounter Summary ---
Author Organization [facility] Address [address] [place] [address] Care Team Providers Care Secretary Name Role Phone Unavailable Primary Care Provider Unavailabl e Reason for Visit * Reason Comments Nurse Visit 28 week RN education visit * Outpatient (Routine) - Authorized Specialty Diagnoses / Procedures Referred By Ernesto heller Referred To Contact Obstetrics and Gynecology Diagnoses Multigravida Advanced Maternal Age Affecting Management (HCC) Hypertension Essential Pre-Existing (HCC) Cami Adams M.D. [address] [place] [address] [facility] Referral ID Status Reason Start Date Expiration Date V isits Requested Visits Authorized [id number] Authorized 12/28/2023 06/28/2025 3 3 Encounter Details Date Type Department Care Team (Latest Contact Info) Description 02/23/2024 11:00 AM CDT Routine Department of Obstetrics and Gynecology in [address] [place] [address] Cami Adams M.D. [address] [place] [address] Deepa Del Cid RForrestNForrest Need [...] Sex Assigned at Female 09/22/2023 9:11 AM FICTION WRITER Gender Identity Female 09/22/2023 9:11 AM FICTION WRITER Sexual Orientation Straight 09/22/2023 9: 11 AM FICTION WRITER documented as of this encounter Last Filed [...] relief options werealso discussed in detail. 6.) [place] education was discussed in detail, including safe sleeping positions/ SIDS, medications, and screening. [place] provider is ada accommodation consultant. She is having a boy. She is planning to breastfeed. Signs and symptoms of mastitis were also reviewed. 7.) family planning was reviewed and she is planning on unsure at this time. 8.) Patient is planning on transferring care to [place] and delivering there. Made her next appointment there, 03/23/24. 2nd/3rd Trimester education provided today using the ACOG list of recommended antepartum education topics and in accordance with [facility] guidelines. Patient states understanding to all topics [...]
--- OUTSIDE RECORDS SUMMARY | 2024-05-06 16:12 | XMS_ITS | Clinical Summary ---
Author Organization [facility] Address [place], [place] [address] Care Team Providers Care In Flight Crew Member Name Role Phone [facility] Primary Care Provider [phone] Allergies No known active allergies Medications Medication [...] daily. 01/20/2021 Active omeprazole 20 mg tabletIndications:Ac [place] right-sided low back pain without sciatica Take 1 Tablet (20 mg) by mouth once daily before a meal. 10 Tablet 01/21/2022 Active ondansetron (ZOFRAN ODT) 4 mg disintegrating tabletIndications:Ac [place] right-sided low back pain without sciatica Place 1 Tablet (4 mg) on the tongue every 8 hours if needed for Nausea/Vomiting. 30 Tablet 01/21/2022 Active Active Problems Problem Noted Date Diagnosed Date 39 weeks gestation of 05/12/2018 Obesity (BMI 30-39.9) 05/12/2018 Slow transit constipation 05/12/2018 Comments Yes Encounters Date Type Department Care Team Description 05/05/2024 Hospital Encounter [facility] [address] [facility] [place] [address] Neto Parson MD from Last 3 Months Social History Tobacco Use Types Packs/Day Years [...] Epidur al N Livin g 9 9 BG JAKUB LAM Complications:None Delivery [facility] Current Summary Episode Dates Number of Fetuses Estimated Date of Delivery 2023 - Present (05/06/2024) Unknown Last Filed Vital Signs Vital Sign [...] 05/12/2018 9:48 AM CDT Plan of Treatment Health Maintenance Due [...] 12:15 PM 05/14/2018 1:40 PM Care Teams In Flight Crew Member Relationship Specialty Start Date End Date [facility] [address] [place] [address] PCP - General 04/14/24
--- OUTSIDE RECORDS SUMMARY | 2024-05-06 16:12 | XMS_ITS | Encounter Summary ---
Author Organization [facility] Address [address] [place] [address] Care Team Providers Care Rotating Field Assembler Name Role Phone Unavailable Primary Care Provider Unavailabl e Encounter Details Date Type Department Care Team (Latest Contact Info) Description 02/23/2024 10:00 AM CDT Silent Schedule Department of Obstetrics and Gynecology in [place], [place] [address] [place] [address] Cami Adams M.D. [address] [place] [phone] Multigravida Advanced Maternal Age Affecting Management (HCC); [...] your living situation today? I have a [facility] place to live 09/22/2023 Education Answer Date Recorded What is the highest level of school you have completed or the highest degree you have received? High school graduate 09/22/2023 Estimated Date of Delivery Comme nts Yes 05/14/2024 Based on Ultraso und Sex and Gender Information Value Date Recorded Sex Assigned at Female 09/22/2023 9:11 AM CAR DRIVER Gender Identity Female 09/22/2023 9:11 AM CAR DRIVER Sexual Orientation Straight 09/22/2023 9: 11 AM CAR DRIVER documented as of this encounter Plan of [...]
--- OUTSIDE RECORDS SUMMARY | 2024-05-06 16:12 | XMS_ITS | Encounter Summary ---
Author Organization [facility] Address [address] [place] [address] Care Team Providers Care Farm Operations Manager Name Role Phone Unavailable Primary Care Provider Unavailabl e Encounter Details Date Type Department Care Team (Latest Contact Info) Description 02/23/2024 10:40 AM CDT - 02/23/2024 11:59 PM CDT Hospital Encounter Department of Laboratory Medicine in [place], [place] [address] [facility] [place] [id number] Cami Adams M.D. [address] [place] [phone] Multigravida Advanced Maternal Age Affecting Management (HCC); [...] your living situation today? I have a [facility] [employer] [facility] to live 09/22/2023 Education Answer Date Recorded What is the highest level of school you have completed or the highest degree you have received? High school graduate 09/22/2023 Estimated Date of Delivery Comme nts Yes 05/14/2024 Based on Ultraso und Sex and Gender Information Value Date Recorded Sex Assigned at Female 09/22/2023 9:11 AM PETROLEUM SUPPLY SPECIALIST Gender Identity Female 09/22/2023 9:11 AM PETROLEUM SUPPLY SPECIALIST Sexual Orientation Straight 09/22/2023 9: 11 AM PETROLEUM SUPPLY SPECIALIST documented as of this encounter Medications at [...] Reflex, Serum (02/23/2024 11:58 AM CDT) Pathologist [facility] Syphilis Total Ab w/ Reflex Nonreactive Nonreactive 02/24/2024 1:04 PM CDT [facility] Comment: No serologic evidence of infection with T. pallidum (syphilis). ??Repeat testing may be considered in patients with suspected acute or primary syphilis in 2-4 weeks. For additional information on interpretation of the syphilis reverse algorithm and results, see: [email or web address] Blood (Blood, Venous) 02/23/2024 11:58 AM CDT 02/24/2024 11:19 AM CDT Cami Adams M.D. LAB BLOOD ADD-ON [facility] [address] [place] [id number], [facility] in [address] [address] * (ABNORMAL) CBC without Differential (02/23/2024 11:58 AM CDT) Pathologist [facility] Hemoglobin 11.5(L) 11.6 - 15.0 g/dL 02/23/2024 [...] M.D. LAB BLOOD ADD-ON Performing Organization Address City/[facility]/ZIP Co de Phone Number [facility] [address] [place] [address], [place] [id number] [facility] [place] [address] [place] [address] * Glucose Tolerance Test, 1 hour (02/23/2024 11:58 AM CDT) Glucose Eliud, 1 Hr, P 183 <140 mg/dL 02/23/2024 6:12 PM CDT [facility] Blood (Blood, Venous) 02/23/2024 11:58 AM CDT 02/23/2024 5:37 PM CDT Cami Adams M.D. LAB BLOOD NON ADD-ON Performing Organization Address City/[facility]/ZIP Co de Phone Number [facility] [address] [place] [address], [place] OWAT [facility] [place] [address] [place] [address] documented in this encounter Visit Diagnoses Diagnosis Multigravida Advanced Maternal Age Affecting Management (HCC) Hypertension Essential Pre-Existing (HCC) documented in this encounter Additional Health Concerns Assessment Noted Time PHQ-9 Depression Total Score: 0 02/23/20 24 10:57 AM CDT documented as of this encounter
--- NOTE | 2024-05-06 17:06 | P.LDBA_ITS ---
Subjective History of Present Illness Time Seen by Provider: 17:06 Date Seen: 05/06/24 Narrative: Patient is being admitted to Labor and Delivery for GDM A2, AMA and chronic hypertension not requiring medications in . She is a 38 year old at 38 and 6/7 weeks gestation. Her full history and physical was dictated by Dr. Angie Johnson on 04/27/2024. Please see this for details. Specific Issues/Plans , ZACHARY: 05/14/24 by first trimester US. Spouse: Aly. Daughters: Arabella Garcia Maya and Kaye. Baby: Boy! [employer] H&P by [facility] on 04/27/2024 Transfer OB care at 32 3/7 weeks #Chronic hypertension * Well controlled w/o medications. Was on Nifedipine at start of d/c due to low BPs. * LDA daily. * Labs at beginning of normal. * Growth US every 4 weeks * Weekly NST or BPP starting at 32 weeks * scheduling form completed. # Gestational Diabetes: diet controlled * 183 on 1hr GTT on 02/23/2024 * 3hr GTT on 03/23/2024: fasting 86, 1 hr 205 (H), 2 hrs 214(H), 3 hrs 118 * Nutrition on 03/30/2024 # Suspected macrosomia - Resolved! * Measuring larger than dates, previous US EFW >90th percentile * 04/19: EFW 70%ile by US, AC 85% #AMA * [id number]: Negative * Did not complete level 2-not ordered #Desires surgical sterilization * Private medical insurance does not need federal form. care labs: 1st trimester labs: 10/14/2023: Blood type and group: A positive, antibody screen negative, hemoglobin 13.7, platelets [id number], rubella immune, RPR negative, hepatitis B surface antigen negative, HIV negative, gonorrhea chlamydia negative, urine culture negative for infection, hepatitis-C negative, varicella immune. Pap smear: Negative, negative HPV. AST: 17, ALT: 18, creatinine: 0.5, protein to creatinine ratio undetectable. Hemoglobin A1c: 5.4. Maternity T21: October 14 2023, negative. BOY! 4 girls at home! Third trimester labs: 02/23/2024: Hemoglobin: 11.5, 1 hour GTT: 183, RPR nonreactive Ultrasounds: 10/07/2023: Intrauterine Cason . [place] to rump length: 20.2 mm, heart rate: 176 beats per minute. ZACHARY by ultrasound 05/14/2024. 12/29/2023: anatomy ultrasound: Anterior placenta, normal amount of amniotic fluid, EFW: 419 g, 93rd percentile. A/c: 87.0 percentile. Cervix: 5.6 cm. Normal anatomy. 02/23/2024: Breech, single deepest pocket of amniotic fluid: 3.3 cm. EFW: 1542 g, 93.6rd percentile. BPD: 28.1 percentile, HC: 51.4 percentile, AC: 97.2 pe rcentile, FL: 74.6 percentile. 03/24/2024: Vtx, SDP 4.3cm, BPP 05/25, EFW 2339 g, 5 lb 3 oz, 81%. BPD 72%, HC 55%, AC 88%, FL 64% 04/19: Vtx, EFW 3099g at 70%ile. AC 85%. Covid: [] Tdap: 02/23/2024 34wk hgb on 03/31/2024: 11.8 GBS:Negative OB - Problem Based A/P Additional Plan (1) Advanced maternal age (AMA) in : Status: Acute Plan 1. Admit to the center for cervical ripening overnight with vaginal Cyto alana. 2. Patient is planning an epidural for labor analgesia. 3. Planning Pitocin to start at 6:00 a.m. by labor induction protocol. 4. Planning bilateral salpingectomy for contraception. 5. GBS negative 6. Blood type: A positive 7. Type and Screen and CBC ordered. OB Exam Physical Exam Vital signs: Pulse BP 100 124/78 05/06/24 17:00 05/06/24 17:00 Narrative: GENERAL APPEARANCE: Pleasant, [race], well-groomed woman in no acute distress. VITAL SIGNS: as noted in nursing notes HEAD: Normocephalic, atraumatic. THYROID: no masses, nodularity, tenderness or enlargement. LUNGS: Clear to auscultation bilaterally without wheezes, rales or rhonchi. HEART: Regular rate and rhythm with normal S1 and S2. No gallop, rub or murmur. ABDOMEN: Gravid. Soft, nontender, nondistended, with normal bowels sounds throughout. EFM: Baseline: 130s. Accelerations: Present. Decelerations: Absent. Reactive. Category 1. TOCO: no contractions. SVE: 2 cm/ 40 %/ -3/medium/mid. Iglesias score: 4 EXTREMITIES: No cyanosis, clubbing, or edema. No varicosities. NEUROLOGIC: Normal gait and balance. Normal deep tendon reflexes at bilateral patella 2+/2, equal without clonus. PSYCHIATRIC: alert and oriented x3. Normal speech pattern, eye contact and affect. SKIN: Warm, dry, and well perfused. Good turgor. No lesions, nodules or rashes.
[2024-05-06 17:29] LABS: Basophils Absolute Auto 0.01 K/uL (0.00-0.30); Basophils Percent Auto 0.1 % (0.0-3.0); Eosinophils Absolute Auto 0.23 K/uL (0.00-0.50); Eosinophils Percent Auto 3.4 % (0.0-7.0); Hematocrit 35.4 % (33.0-51.0); Hemoglobin* 11.7 gm/dL (12.0-16.0); Immature Granulocytes Abs Auto 0.04 K/uL (0.00-0.30); Immature Granulocytes Pct Auto 0.6 %; Lymphocytes Absolute Auto 1.36 K/uL (0.90-2.90); Lymphocytes Percent Auto 20.3 % (20-44); Mean Corpuscular HGB Conc 33 gm/dL (32-36); Mean Corpuscular Hemoglobin 31 pg (26-34); Mean Corpuscular Volume 95 fL (80-100); Neutrophils Absolute Auto 4.39 K/uL (1.7-7.0); Neutrophils Percent Auto 65.6 % (42.0-72.0); Platelet Count* 203 K/uL (140-440); RDW Coefficient of Variation % 13.7 % (11.5-15.5); Red Blood Count 3.73 m/uL (4.00-5.20)
[2024-05-06 17:31] LABS: Slide Review Reflex No
[2024-05-06] MEDS: miSOPROStoL 25 MCG/0.25 TABLET VAGINAL ×2 (19:21→22:22)
[2024-05-06] MEDS: hydrOXYzine pamoate 25 MG CAPSULE 100 MG PO (22:22)
[2024-05-06] MEDS: MORPHINE 10 MG/ML inj IM (22:22)
[2024-05-07] VITALS (50 sets, daily range): BP systolic 93–141; BP diastolic 50–86; PULSE 75–151; RESP 16–18; TEMP 36.6–37.2; O2SAT 9–99
[2024-05-07] MEDS: miSOPROStoL 25 MCG/0.25 TABLET VAGINAL (01:23)
[2024-05-07] MEDS: LACTATED RINGERS 1000 ML 1,000 ML 1200 ML IV ×3 (05:14→08:38)
[2024-05-07] MEDS: BUPIVACAINE 0.25% PF 10 ML 10 ML ML EPIDURAL (05:59)
[2024-05-07] MEDS: ROPIVACAINE 0.2% 100 ml 100 ML 12 MG EPIDURAL (06:03)
[2024-05-07] MEDS: PHENYLEPHRINE 100 MCG/ML SYRINGE IVP ×3 (06:05→06:31)
--- NOTE | 2024-05-07 06:08 | P.ANBPRC_ITS ---
[facility] Social History What is your current living situation?: I presently have a place to live Problems where you live: no known problems In the past 12 months, utilities in danger of being shut off: no In past 12 months, lack of transportation kept you from medical appts, meetings, work, or getting things needed for daily living: no In the past 12 mos, have been you worried that your food would run out before you had money to buy more?: never true In the past 12 mos, the food you bought just didn't last and you didn't have money to buy more?: never true Smoking Status: Never smoker How often does anyone, including family, friends and others, physically hurt you : never How often does anyone, including family, friends and others, insult or talk down to you: never How often does anyone, including family, friends and others, threaten you with harm: never How often does anyone, including family, friends and others, scream or curse at you: never Little interest or pleasure in doing things: not at all Feeling down, depressed, or hopeless: not at all Meds Home Medications and Allergies Home Medications ?Medication ?Instructions ?Recorded ?Confirmed ?Type aspirin 81 mg tablet,delayed 81 mg PO QDAY 03/22/24 05/06/24 History release (Adult Low Dose Aspirin) ferrous sulfate 325 mg (65 mg 325 mg PO QDAY 03/22/24 05/06/24 History iron) tablet magnesium gluconate 27 mg 27 mg PO QDAY 03/22/24 05/06/24 History magnesium (500 mg) tablet polyethylene glycol 3350 17 4 g PO QDAY 03/22/24 05/06/24 History gram/dose oral powder (Miralax) vits no.126-ferrous fum 1 tab PO QDAY 03/22/24 05/06/24 History 28 mg iron-folic acid 800 mcg tablet (Classic ) Allergies Allergy/AdvReac Type Severity Reaction Status Date / Time No Known Drug Allergies Allergy Verified 05/02/24 10:38 Results Labs Labs: Laboratory Results - last 24 hr 05/06/24 17:20 WBC 6.70 RBC 3.73 L Hgb 11.7 L Hct 35.4 MCV 95 MCH 31 MCHC 33 RDW Coeff of Venus 13.7 Plt Count 203 Neut % (Auto) 65.6 Lymph % (Auto) 20.3 [place] % (Auto) 10.0 Eos % (Auto) 3.4 Baso % (Auto) 0.1 Neut # (Auto) 4.39 Lymph # (Auto) 1.36 [place] # (Auto) 0.70 Eos # (Auto) 0.23 Baso # (Auto) 0.01 Abs Immat Gran (auto) 0.04 Imm/Tot Granulo (auto) 0.6 Blood Type A Positive Antibody Screen NEGATIVE Vital Signs Vital Signs: Last Vital Signs Temp 98.6 F 05/07/24 04:22 Pulse 96 05/07/24 06:05 Resp 18 05/07/24 04:22 BP 104/56 L 05/07/24 06:05 Pulse Ox 98 05/07/24 05:56 Weight: 96.615 kg Height: 162.56 cm Anesthesia Procedures Epidural Insertion Patient Location: OB Start Time: 05:15 Stop Time: 06:15 Start Date: 05/07/24 Stop Date: 05/07/24 Reason for Block: procedure for pain Patient Position: sitting Performed By: Arik Epstein Preanesthetic Checklist: IV checked, risks and benefits discussed, surgical consent, monitors and equipment checked, pre-op evaluation, timeout performed and anesthesia consent Prep: chlorhexidine gluconate Monitoring: blood pressure monitoring, continuous pulse oximetry and heart rate Approach: midline Vertebral Space: lumbar (1-5) Epidural Technique: CAR saline Needle Type: Tuohy needle Injection Technique: continuous catheter Needle gauge: 17 Needle Length (cm): 10 cm Needle Insertion Depth (cm): 6 Catheter Gauge: 19 Catheter Type: multi-orifice Catheter at skin depth (cm): 12 Test Dose Result: negative and lidocaine 1.5% with epinephrine 1 to 200,000
[2024-05-07] MEDS: ePHEDrine sulfate 5 MG/ML inj 10 MG IVP (06:33)
[2024-05-07] MEDS: OXYTOCIN 30 unit/500 ML in NS 30 UNIT/500 ML BAG 300 UNIT IVPB (09:16)
--- NOTE | 2024-05-07 09:29 | W.PM.VAGDEL1 ---
Procedure Delivery date: 05/07/24 Procedure Done: Global Procedure Details: Bela is a 38 year-old G 5 P 5 now 5 admitted on 05/06/2024 at 4:30 p.m. at 38 Weeks, 6 Days gestation for induction of labor due to diet-controlled gestational diabetes, chronic hypertension and advanced maternal age. AROM occurred at 6:58 a.m. on 05/07/2024 with clear fluid. Labor Analgesia: Epidural Pitocin: No Labor onset: 05/07/2024 at 5:11 a.m.. Complete: 05/07/2024 at 9:00 a.m.. Pushin05/07/2024 at 9:04 a.m.. heart tones during second stage were: Moderate variability with variable decelerations with contractions to the 90s late return to baseline: Category 2. At 05/07/2024 a viable 9:09 a.m. delivered in vertex direct OA presentation over intact perineum via spontaneous vaginal delivery. The was placed on maternal abdomen. Cord was clamped and cut immediately and the infant moved to the warmer for resuscitation. Nose and mouth were bulb suctioned. weight 7 lb 15 oz. 2 at 1 minute and 9 at 5 minutes. Shoulder dystocia: Yes: Lm Alfredo positioning, suprapubic pressure, attempted Maurer screw both clockwise and counter-clockwise all unsuccessful. Delivery of the posterior arm then delivery of the total time 2 minutes. Nuchal cord: No Placenta delivered spontaneously and complete at 9:16 a.m. with a 3 vessel cord. Laceration(s): None. Blood loss: 300 mL. Blood loss measurement type: Quantitative Sponge and needles counts are correct. Specimen: Placenta Mother and infant were stable after delivery. Infant's name: Brandon The patient is planning on breast feeding. Events: GDMA1, Chronic Hypertension and AMA Intrapartal Events: Other (Shoulder dystocia: 2 minutes) Delivery monitor: external FHT and external uterine Route of delivery: Estimated blood loss (mL): 300 Anesthesia type: Epidural Disposition: floor
[2024-05-07] MEDS: ACETAMINOPHEN 500 MG TABLET 1000 MG PO ×2 (10:22→18:16)
[2024-05-07] MEDS: IBUPROFEN 600 MG TABLET PO (14:31)
--- NOTE | 2024-05-07 15:42 | PM.ANPOST ---
Post Anesthesia Note Post Anesthesia Note Patient seen: Inpatient Respiratory Status: adequate Cardiovascular Status: adequate Mental Status: baseline Pain: adequate Temp: baseline Anesthetic awareness: N/A Complications: none Follow care: none
[2024-05-08] VITALS (21 sets, daily range): BP systolic 107–132; BP diastolic 64–88; PULSE 70–98; RESP 16–22; TEMP 36.4–37.2; O2SAT 90–98
[2024-05-08] MEDS: IBUPROFEN 600 MG TABLET PO ×3 (02:21→20:26)
[2024-05-08 06:58] LABS: Hemoglobin* 10.2 gm/dL (12.0-16.0)
--- NOTE | 2024-05-08 08:11 | PM.OBPNVD1 ---
OB - PN:Subj Subjective Date Seen: 05/08/24 Narrative: Overnight patient had no complaints. Her pain is well controlled on oral pain medications. She is tolerating a regular diet. She has passed flatus. She is ambulating without difficulty. Lochia is scant. She is urinating without russell. Patient denies chest pain, SOB, n/v, headache, RUQ pain, vision changes, dizziness. We discussed risks/benefits/alternatives of permanent sterilization. We discussed that there should be clear understanding this is permanent and irreversible. The mechanism of action is to prevent conception by blocking transport of sperm from the lower genital tract to an ovulated oocytes. My preferred method of sterilization is salpingectomy. Salpingectomy is the removal of bilateral fallopian tubes. There is potential opportunity to decrease the risk of ovarian cancer in patients who already are undergoing pelvic surgery for benign indications. It can decrease the risk of future ovarian cancer by as much as 40-60%. I informed patient that most women who choose sterilization do not regret their decision. CREST study report that 5 year risk of regret is about 7%. Cumulative risk of regret w/in 14 years of procedure is 20% for patient <30 y/o and 6% >30 years of age. We also discussed risk of surgery including pain, bleeding, infection, and damages to the surrounding structures of the operative site. We also reviewed postoperative expectations and recovery course. Patient is aware of alternatives such as medical contraception, LARCs, partner vasectomy etc. After counseling patient would like to proceed. Consents signed. She's had no previous abdominal surgeries. OB - PN: Obj Exam Physical Exam: Vital signs: Temp Pulse Resp BP Pulse Ox O2 Del Method 98.9 F 98 18 122/75 99 Room Air 05/08/24 03:20 05/08/24 03:20 05/08/24 03:20 05/08/24 03:20 05/07/24 23:45 05/08/24 03:20 Narrative: Physical exam: General: No acute distress Psych: Alert and oriented x4, full affect HEENT: Normocephalic, atraumatic Neck: No cervical adenopathy, no thyromegaly Heart: Regular rate and rhythm, no murmur rub or gallop Lungs: Clear to auscultation bilaterally Abdomen: Normoactive bowel sounds, soft, no tenderness, rebound, or guarding. Uterus firm 2 cm below umbilicus Skin: No lesions or rashes Lower extremities: No edema or erythema Pelvic exam: No blood on pad OB - PN: Obj Data Labs Labs: Laboratory Results - last 24 hr 05/08/24 06:43 Hgb 10.2 L OB - PN: A/P Delivery Assessment and Plan (1) Advanced maternal age (AMA) in : Status: Acute (2) Unwanted fertility: Status: Acute Plan Postoperative/post delivery Review: - Admitted for: IOL - complicated by 2 min shoulder dystocia - Estimated blood loss: 300 mL Unwanted fertility - Urine output: voiding freely - Preop/pre delivery Hgb: 11.7 - Postop/post delivery Hgb: 10.2 Postoperative care: - Diet: NPO until sterilization surgery - Fluid: NPO - Activity: Encourage ambulation and incentive spirometry - Pain: Acetaminophen, Ibuprofen, and oxycodone - DVT prophylaxis: SCDs and TEDs when not ambulating. Discharge Planning - Contraception: Pending sterilization surgery at 1120 - Follow Up: follow-up at 2 weeks and 6 weeks in clinic Baby's Status - Fetus: 2, 9 - 7lb 15oz - Location: Bedside Dispo: Patient is PPD#1. Need the following milestones: sterilization. Anticipate discharge PPD#2.
[2024-05-08] MEDS: 5 % DEXTROSE/0.45% SOD CHLOR 1,000 ML 125 ML IV (08:19)
[2024-05-08] MEDS: LACTATED RINGERS 1000 ML 1,000 ML 100 ML IV (11:17)
[2024-05-08] MEDS: BUPIVACAINE 0.5 %/EPI 1:200K 30 ML INJECTION (11:33)
--- NOTE | 2024-05-08 11:49 | W.ANESCHARGE ---
Anesthesia Charges Start Date/Time Anesthesia Start Date: 05/08/24 Anesthesia Start Time: 11:17 Stop Date/Time Anesthesia Stop Date: 05/08/24 Anesthesia Stop Time: 12:17
--- NOTE | 2024-05-08 12:23 | W.ANESCHARGE ---
Anesthesia Charges Start Date/Time Anesthesia Start Date: 05/08/24 Anesthesia Start Time: 11:17 Stop Date/Time Anesthesia Stop Date: 05/08/24 Anesthesia Stop Time: 12:17
--- NOTE | 2024-05-08 12:34 | SUR.PHASEI ---
Patient meets anesthesia discharge criteria from PACU
--- NOTE | 2024-05-08 12:45 | W.PM.GYNPROC ---
Procedure Note Time Seen by Provider: 12:45 Date of procedure: 05/08/24 Will [facility] bill your pro fee for this procedure?: Yes Tools And Parts Attendant: Mena Hickey Estimated blood loss (mL): 5 Pathology: specimen obtained, sent to pathology Condition: stable Disposition: floor Procedure Description: Preoperative diagnosis: Bela is a 38-year-old 5 now para 5005 who desires permanent sterilization, day 1. Postoperative diagnosis: Same. Procedure: Mini laparotomy with bilateral salpingectomy Anesthesia: General Surgeon: Marci Gotti MD EBL: 5 mL Specimen: Bilateral fallopian tubes to pathology. Findings: Increased central adiposity. The fundus was noted to be 1 cm below the umbilicus. The uterus, bilateral fallopian tubes and ovaries all appeared normal. Procedure: Patient was taken to the operating room where general anesthetic was found to be adequate. Patient voided prior to coming into the OR. She was placed in the dorsal supine position and an exam under anesthesia was performed with findings stated above. She was then prepped and draped in a normal sterile manner. 10 mL of 0.5% Marcaine without epinephrine were injected underneath the skin prior to incision. A 4 cm incision was made inferior to the umbilicus. This was carried through to the underlying layer of fascia sharply with scalpel. The fascia was identified, grasped with 2 Benny clamps and divided with scalpel. This incision was extended laterally bluntly. The peritoneum was identified and entered bluntly. A small Umberto, self-retaining retractor was placed. portion of the procedure. The patient was placed in a slight Trendelenburg position. The right ovary was grasped and brought to the incision. The fallopian tube was identified and grasped with 2 [place] clamps. The fallopian tube was removed by performing serial pedicles with the hand-held LigaSure dissecting forceps. The fallopian tube was removed from the uterus at the cornual aspect. Excellent hemostasis was noted. The left fallopian tube was identified, grasped, and removed in a similar manner. Again excellent hemostasis noted. The fascia was reapproximated using 0 Vicryl in a running manner. The subcutaneous tissue was irrigated with a small amount of saline and bipolar cautery used to obtain hemostasis. Continuous running sutures of 2-0 chromic were placed in the subcutaneous tissue to prevent space. The skin was reapproximated using 4-0 Monocryl and a running subcuticular manner. Exofin and an adhesive bandage were then applied. The patient tolerated this procedure well. Sponge, lap and instrument counts were correct x2 at the end of the procedure and the patient was taken to the recovery area in stable condition.
--- OUTSIDE RECORDS SUMMARY | 2024-05-08 14:07 | XMS_ITS | Encounter Summary ---
Author Organization [facility] Address [address] [place] [address] Care Team Providers Care Administrative Support Coordinator Name Role Phone Unavailable Primary Care Provider Unavailabl e Encounter Details Date Type Department Care Team (Latest Contact Info) Description 02/23/2024 10:00 AM CDT Silent Schedule Department of Obstetrics and Gynecology in [place], [place] [address] [place] [address] Cami Adams M.D. [address] [place] [phone] Multigravida Advanced Maternal Age Affecting Management (HCC); [...] your living situation today? [facility] 09/22/2023 Education Answer Date Recorded What is the highest level of school you have completed or the highest degree you have received? High school graduate 09/22/2023 Estimated Date of Delivery Comme nts Yes 05/14/2024 Based on Ultraso und Sex and Gender Information Value Date Recorded Sex Assigned at Female 09/22/2023 9:11 AM PERINATAL COORDINATOR Gender Identity Female 09/22/2023 9:11 AM PERINATAL COORDINATOR Sexual Orientation Straight 09/22/2023 9: 11 AM PERINATAL COORDINATOR documented as of this encounter Plan of [...]
--- OUTSIDE RECORDS SUMMARY | 2024-05-08 14:07 | XMS_ITS | Encounter Summary ---
Author Organization [facility] Address [address] [place] [address] Care Team Providers Care Mapping Analyst Name Role Phone Unavailable Primary Care Provider Unavailabl e Encounter Details Date Type Department Care Team (Late st Contact Info) Description 03/03/2024 Orders Only Department of Laboratory Medicine in [place], [place] [address] [place] [address] Cami Adams M.D. [address] [place] [phone] Impaired Glucose Tolerance (Primary Dx); Obesity Body [...] your living situation today? I have a [facility] place to live 09/22/2023 Education Answer Date Recorded What is the highest level of school you have completed or the highest degree you have received? High school graduate 09/22/2023 Estimated Date of Delivery Comme nts Yes 05/14/2024 Based on Ultraso und Sex and Gender Information Value Date Recorded Sex Assigned at Female 09/22/2023 9:11 AM TABLE HAND Gender Identity Female 09/22/2023 9:11 AM TABLE HAND Sexual Orientation Straight 09/22/2023 9: 11 AM TABLE HAND documented as of this encounter Plan of [...]
--- OUTSIDE RECORDS SUMMARY | 2024-05-08 14:07 | XMS_ITS | Encounter Summary ---
Author Organization [facility] Address [address] [place] [address] Care Team Providers Care Motor And Chassis Inspector Name Role Phone Unavailable Primary Care Provider Unavailabl e Reason for Visit * Reason Comments Nurse Visit 28 week RN education visit * Outpatient (Routine) - Authorized Specialty Diagnoses / Procedures Referred By Ernesto heller Referred To Contact Obstetrics and Gynecology Diagnoses Multigravida Advanced Maternal Age Affecting Management (HCC) Hypertension Essential Pre-Existing (HCC) Cami Adams M.D. [address] [place] [address] [facility] Referral ID Status Reason Start Date Expiration Date V isits Requested Visits Authorized [id number] Authorized 12/28/2023 06/28/2025 3 3 Encounter Details Date Type Department Care Team (Latest Contact Info) Description 02/23/2024 11:00 AM CDT Routine Department of Obstetrics and Gynecology in [address] [place] [address] Cami Adams M.D. [address] [place] [address] Deepa Del Cid RForrestNForrest Need [...] Sex Assigned at Female 09/22/2023 9:11 AM AUTOMATIC MACHINE ATTENDANT Gender Identity Female 09/22/2023 9:11 AM AUTOMATIC MACHINE ATTENDANT Sexual Orientation Straight 09/22/2023 9: 11 AM AUTOMATIC MACHINE ATTENDANT documented as of this encounter Last Filed [...] relief options werealso discussed in detail. 6.) Sharon education was discussed in detail, including safe sleeping positions/ SIDS, medications, and screening. Sharon provider is front end developer. She is having a boy. She is planning to breastfeed. Signs and symptoms of mastitis were also reviewed. 7.) family planning was reviewed and she is planning on unsure at this time. 8.) Patient is planning on transferring care to [place] and delivering there. Made her next appointment there, 03/23/24. 2nd/3rd Trimester education provided today using the ACOG list of recommended antepartum education topics and in accordance with [facility] guidelines. Patient states understanding to all topics [...]
--- OUTSIDE RECORDS SUMMARY | 2024-05-08 14:07 | XMS_ITS ---
Author Organization [facility] Address [address] [place] [address] Care Team Providers Care Brokerage Office Manager Name Role Phone Unavailable Unavailable Unavailable Surgery Details Not on file Complications Check Surgery Details section. Procedure Estimated Blood Loss Check Surgery Details section. Procedure Findings Check Surgery Details section. Procedure Specimens Taken Check Surgery Details section.
--- OUTSIDE RECORDS SUMMARY | 2024-05-08 14:07 | XMS_ITS | Referral Summary ---
Author Organization [facility] Address [address] [place] [address] Care Team Providers Care Strip Feeder Name Role Phone Unavailable Primary Care Provider Unavailabl e Source Comments Patient records contain information from all sites at [facility]. For routine questions regarding patient records, call [phone] during business hours, M-F 8:00 AM - 5:00 PM Central Time. Record requests for emergency care only can be directed to [phone] at any time.[facility] Encounters Date Type Department Care Team Description 03/03/2024 Orders Only Department of Laboratory Medicine in [address] [phone] Cami Adams M.D. Impaired Glucose Tolerance (Primary Dx); Obesity Body Mass Index 30-39.9 Adult; Multigravida Advanced Maternal Age Affecting Management (HCC) 02/23/2024 11:00 AM CDT Routine Department of Obstetrics and Gynecology in [address] [phone] Cami Adams M.D. Dettmann, Heather B, R.N. Need Vaccine Immunization Tetanus And Diphtheria Toxoids And Pertussis (Primary Dx); Multigravida Advanced Maternal Age Affecting Management (HCC); Hypertension Essential Pre-Existing (HCC) 02/23/2024 10:00 AM CDT Silent Schedule Department of Obstetrics and Gynecology in [address] [phone] Cami Adams M.D. Multigravida Advanced Maternal Age Affecting Management (HCC); Hypertension Essential Pre-Existing (HCC) 02/23/2024 10:40 AM CDT - 02/23/2024 11:59 PM CDT Hospital Encounter Department of Laboratory Medicine in [place] [address] [address] [employer] [facility] [place] [address] Cami Adams M.D. Multigravida Advanced Maternal Age [...] trimester OB education completed. Pre-reg completed at [facility]. LMP:10/13/23-approximate EDC:05/05/24 Prospect provider:validation scientist FOB involved:Aly Problem Noted Date Diagnosed Date [...] your living situation today? [facility] 09/22/2023 Education Answer Date Recorded What is the highest level of school you have completed or the highest degree you have received? High school graduate 09/22/2023 Estimated Date of Delivery Comme nts Yes 05/14/2024 Based on Ultraso und Sex and Gender Information Value Date Recorded Sex Assigned at Female 09/22/2023 9:11 AM DAIRY MACHINE OPERATOR FARMWORKER Gender Identity Female 09/22/2023 9:11 AM DAIRY MACHINE OPERATOR FARMWORKER Sexual Orientation Straight 09/22/2023 9: 11 AM DAIRY MACHINE OPERATOR FARMWORKER Last Filed Vital Signs Vital Sign Reading Time Taken Comments Blood Pressure 109/66 02/23/2024 10:54 AM CDT Pulse 91 02/23/2024 10:54 AM CDT Temperature 36.8 ??C (98.2 ??F) 06/23/2018 1:56 PM CD T Respiratory Rate 16 06/23/2018 1:56 PM CDT Oxygen Saturation 99% 10/07/2023 2:06 PM DAIRY MACHINE OPERATOR FARMWORKER Inhaled Oxygen Concentration - - Weight 92.8 [...] A1C, B Routine 10/14/2023 11: 22 AM DAIRY MACHINE OPERATOR FARMWORKER Examination Test With Positive Result (HCC) HCV AB SCRN , S Routine 10/14/2023 11:22 AM DAIRY MACHINE OPERATOR FARMWORKER Examination Test With Positive Result (HCC) HIV-1/-2 AG AND AB SCRN, PLASMA Routine 10/14/2023 11:22 AM DAIRY MACHINE OPERATOR FARMWORKER Examination Test With Positive Result (HCC) HPV WITH GENOTYPING, PCR, THINPREP Routine 10/07/2023 2:43 PM DAIRY MACHINE OPERATOR FARMWORKER from Last 3 Months or Most Recently Relevant to Health Maintenance Results * Syphilis Total Antibody with Reflex, Serum (02/23/2024 11:58 AM CDT) Syphilis Total Ab w/ Reflex Nonreactive Nonreactive 02/24/2024 1:04 PM CDT [facility] Comment: No serologic evidence of infection with T. pallidum (syphilis). ??Repeat testing may be considered in patients with suspected acute or primary syphilis in 2-4 weeks. For additional information on interpretation of the syphilis reverse algorithm and results, see: [email or web address] Blood (Blood, Venous) 02/23/2024 11:58 AM CDT 02/24/2024 11:19 AM CDT Cami Adasm M.D. LAB BLOOD ADD-ON Performing Organization Address City/[facility]/ZIP Co de Phone Number [facility] [address] [place] [address], [facility] [place] [facility] in [address] [address] * Glucose Tolerance Test, 1 hour (02/23/2024 11:58 AM CDT) Glucose Eliud, 1 Hr, P 183 <140 mg/dL 02/23/2024 6:12 PM CDT OW[facility] Blood (Blood, Venous) 02/23/2024 11:58 AM CDT 02/23/2024 5:37 PM CDT Cami Adams M.D. LAB BLOOD NON ADD-ON [facility] [address] [place] [address], [facility] OWAT [facility] [place] [address] [place] [address] * (ABNORMAL) CBC without Differential (02/23/2024 11:58 [...] CDT Cami Adams M.D. LAB BLOOD ADD-ON [facility] [address] [place] [address], [facility] FB60 [facility] [place] [address] [place] [address] * US OB Growth Munguia (02/23/2024 10:39 [...] C Virus Antibody Screen (10/14/2023 11:22 AM DAIRY MACHINE OPERATOR FARMWORKER) HCV Ab Scrn , S Negative Negative 10/15/2023 9:05 AM DAIRY MACHINE OPERATOR FARMWORKER [facility] Comment:Amspti-xv-xcbrnt rat io is <1.00. Blood (Blood, Venous) 10/14/2023 11:22 AM DAIRY MACHINE OPERATOR FARMWORKER 10/15/2023 7:43 AM DAIRY MACHINE OPERATOR FARMWORKER Neto Parson M.D. LAB MICROBIOLOGY - B LOOD ORDERABLES Performing Organization Address City/State/[facility] Co de Phone Number [facility] [address] [place] [address] [facility] [address] [place] [address] * HIV-1/-2 Ag and Ab Scrn, Plasma (10/14/2023 11:22 AM DAIRY MACHINE OPERATOR FARMWORKER) HIV Ag/Ab Scrn, P Negative Negative 10/15/2023 12:18 PM DAIRY MACHINE OPERATOR FARMWORKER [facility] Comment: Negative result does not rule out HIV infection. If exposure to HIV infection occurred <14 days ago, contact the laboratory to request addition of HIV-1/HIV-2 RNA detection , Plasma (HPP12). HIV-1 p24 Ag Scrn, P Negative Negative 10/15/2023 12:18 PM DAIRY MACHINE OPERATOR FARMWORKER [facility] Comment: Negative result does not rule out HIV infection. If exposure to HIV infection occurred <14 days ago, contact the laboratory to request addition of HIV-1/HIV-2 RNA detection , Plasma (HPP12). HIV-1 Ab Scrn, P Negative Negative 10/15/2023 12:18 PM DAIRY MACHINE OPERATOR FARMWORKER [facility] Comment: Negative result does not rule out HIV infection. If exposure to HIV infection occurred <14 days ago, contact the laboratory to request addition of HIV-1/HIV-2 RNA detection , Plasma (HPP12). HIV-2 Ab Scrn, P Negative Negative 10/15/2023 12:18 PM DAIRY MACHINE OPERATOR FARMWORKER [facility] Comment: Negative result does not rule out HIV infection. If exposure to HIV infection occurred <14 days ago, contact the laboratory to request addition of HIV-1/HIV-2 RNA detection , Plasma (HPP12). Blood (Blood, Venous) 10/14/2023 11:22 AM DAIRY MACHINE OPERATOR FARMWORKER 10/15/2023 10:34 AM DAIRY MACHINE OPERATOR FARMWORKER Neto Parson M.D. LAB MICROBIOLOGY - B LOOD ORDERABLES Performing Organization Address City/[facility]/ZIP Co de Phone Number [facility] [address] [place] [address], [facility] in [address] [address] * Hemoglobin A1c (10/14/2023 11:22 AM DAIRY MACHINE OPERATOR FARMWORKER) Hemoglobin A1c, B 5.4 4.2 - 5.6 % 10/14/2023 1:38 PM DAIRY MACHINE OPERATOR FARMWORKER OW Blood (Blood, Venous) 10/14/2023 11:22 AM DAIRY MACHINE OPERATOR FARMWORKER 10/14/2023 12:37 PM DAIRY MACHINE OPERATOR FARMWORKER Neto Parson M.D. LAB BLOOD ADD-ON Performing Organization Address [facility] Co de Phone Number [facility] [address] [place] [address], [place] OWAT [facility] [place] [address] [place] [address] * HPV with Genotyping, PCR, ThinPrep (10/07/2023 2:43 PM DAIRY MACHINE OPERATOR FARMWORKER) HPV with Genotyping, ThinPrep, PCR Negative Negative 10/08/2023 3:48 PM DAIRY MACHINE OPERATOR FARMWORKER TO Comment: Negative for high risk HPV [...] correlated with patient's history, clinical presentation, and HIDE OR SKIN BUFFER cytology report. 10/07/2023 2:43 PM DAIRY MACHINE OPERATOR FARMWORKER 10/08/2023 7:14 AM DAIRY MACHINE OPERATOR FARMWORKER Neto Parson M.D. LAB MICROBIOLOGY - G ENERAL ORDERABLES [facility] [address] [place] [address], [facility] MKTO [address] [place] [address] from Last 3 Months or Most Recently Relevant to Health Maintenance
--- OUTSIDE RECORDS SUMMARY | 2024-05-08 14:07 | XMS_ITS | Encounter Summary ---
Author Organization [facility] Address [address] [place] [address] Care Team Providers Care Registered Nurse Step Down Name Role Phone Unavailable Primary Care Provider Unavailabl e Encounter Details Date Type Department Care Team (Latest Contact Info) Description 02/23/2024 10:40 AM CDT - 02/23/2024 11:59 PM CDT Hospital Encounter Department of Laboratory Medicine in [place], [place] [address] [facility] [place] [phone] Cami Adams M.D. [address] [place] [phone] Multigravida Advanced Maternal Age Affecting Management (HCC); [...] your living situation today? I have a [facility] place to live 09/22/2023 Education Answer Date Recorded What is the highest level of school you have completed or the highest degree you have received? High school graduate 09/22/2023 Estimated Date of Delivery Comme nts Yes 05/14/2024 Based on Ultraso und Sex and Gender Information Value Date Recorded Sex Assigned at Female 09/22/2023 9:11 AM SONOGRAPHER Gender Identity Female 09/22/2023 9:11 AM SONOGRAPHER Sexual Orientation Straight 09/22/2023 9: 11 AM SONOGRAPHER documented as of this encounter Medications at [...] Reflex Nonreactive Nonreactive 02/24/2024 1:04 PM CDT [facility] Comment: No serologic evidence of infection with T. pallidum (syphilis). ??Repeat testing may be considered in patients with suspected acute or primary syphilis in 2-4 weeks. For additional information on interpretation of the syphilis reverse algorithm and results, see: [email or web address] Blood (Blood, Venous) 02/23/2024 11:58 AM CDT 02/24/2024 11:19 AM CDT Cami Adams M.D. LAB BLOOD ADD-ON [facility] [address] [place] [address], [facility] in [address] [address] * (ABNORMAL) CBC without Differential (02/23/2024 11:58 [...] M.D. LAB BLOOD ADD-ON Performing Organization Address City/[facility]/ZIP Co de Phone Number [facility] [address] [place] [address], [place] FB60 [facility] [place] [address] [place] [address] * Glucose Tolerance Test, 1 hour (02/23/2024 11:58 AM CDT) Glucose Eliud, 1 Hr, P 183 <140 mg/dL 02/23/2024 6:12 PM CDT [facility] Blood (Blood, Venous) 02/23/2024 11:58 AM CDT 02/23/2024 5:37 PM CDT Cami Adams M.D. LAB BLOOD NON ADD-ON Performing Organization Address City/[facility]/ZIP Co de Phone Number [facility] [address] [place] [address], [place] OW[place] [facility] [place] [address] [place] [address] documented in this encounter Visit Diagnoses Diagnosis Multigravida Advanced Maternal Age Affecting Management (HCC) Hypertension Essential Pre-Existing (HCC) documented in this encounter Additional Health Concerns Assessment Noted Time PHQ-9 Depression Total Score: 0 02/23/20 24 10:57 AM CDT documented as of this encounter
--- OUTSIDE RECORDS SUMMARY | 2024-05-08 14:07 | XMS_ITS | Clinical Summary ---
Author Organization [facility] Address [place], [place] [address] Care Team Providers Care Telephone Technician Name Role Phone [facility] Primary Care Provider [phone] Allergies No known active allergies Medications Medication [...] daily. 01/20/2021 Active omeprazole 20 mg tabletIndications:Ac [place] right-sided low back pain without sciatica Take 1 Tablet (20 mg) by mouth once daily before a meal. 10 Tablet 01/21/2022 Active ondansetron (ZOFRAN ODT) 4 mg disintegrating tabletIndications:Ac [place] right-sided low back pain without sciatica Place 1 Tablet (4 mg) on the tongue every 8 hours if needed for Nausea/Vomiting. 30 Tablet 01/21/2022 Active Active Problems Problem Noted Date Diagnosed Date 39 weeks gestation of 05/12/2018 Obesity (BMI 30-39.9) 05/12/2018 Slow transit constipation 05/12/2018 Comments Yes Encounters Date Type Department Care Team Description 05/05/2024 Hospital Encounter [facility] [address] [facility] [place] [address] Neto Parson MD from Last 3 Months [...] 9 9 BG JAKUB LAM Complications:None Delivery [facility] Current Summary Episode Dates Number of Fetuses Estimated Date of Delivery 2023 - Present (05/08/2024) Unknown Last Filed Vital Signs Vital Sign [...] 12:15 PM 05/14/2018 1:40 PM Care Teams Telephone Technician Relationship Specialty Start Date End Date [facility] [address] [place] [address] PCP - General 04/14/24
--- OUTSIDE RECORDS SUMMARY | 2024-05-08 14:07 | XMS_ITS | Clinical Summary ---
Author Organization [facility] Address [address] [place] [address] Care Team Providers Care Routeman Name Role Phone Unavailable Primary Care Provider Unavailabl e Source Comments Patient records contain information from all sites at [facility]. For routine questions regarding patient records, call [phone] during business hours, M-F 8:00 AM - 5:00 PM Central Time. Record requests for emergency care only can be directed to [phone] at any time.[facility] Allergies No known active allergies Medications Medication [...] trimester OB education completed. Pre-reg completed at [facility]. 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 Impaired Glucose Tolerance (Primary Dx); Obesity Body Mass Index 30-39.9 Adult; Multigravida Advanced Maternal Age Affecting Management (HCC) 02/23/2024 11:00 AM CDT Routine Department of Obstetrics and Gynecology in [address] [phone] Cami Adams M.D. Dettmann, Heather B, R.N. Need Vaccine Immunization Tetanus And Diphtheria Toxoids And Pertussis (Primary Dx); Multigravida Advanced Maternal Age Affecting Management (HCC); Hypertension Essential Pre-Existing (HCC) 02/23/2024 10:40 AM CDT - 02/23/2024 11:59 PM CDT Hospital Encounter Department of Laboratory Medicine in [address] [phone] Cami Adams M.D. Multigravida Advanced Maternal Age Affecting Management (HCC); Hypertension Essential Pre-Existing (HCC) Discharge Disposition: Home or Self Care 02/23/2024 10:00 AM CDT Silent Schedule Department of Obstetrics and Gynecology in [address] [phone] Cami Adams M.D. Multigravida Advanced Maternal Age [...] Sex Assigned at Female 09/22/2023 9:11 AM LINOTYPE MACHINIST Gender Identity Female 09/22/2023 9:11 AM LINOTYPE MACHINIST Sexual Orientation Straight 09/22/2023 9: 11 AM LINOTYPE MACHINIST Last Filed Vital Signs Vital Sign Reading Time Taken Comments Blood Pressure 109/66 02/23/2024 10:54 AM CDT Pulse 91 02/23/2024 10:54 AM CDT Temperature 36.8 ??C (98.2 ??F) 06/23/2018 1:56 PM CD T Respiratory Rate 16 06/23/2018 1:56 PM CDT Oxygen Saturation 99% 10/07/2023 2:06 PM LINOTYPE MACHINIST Inhaled Oxygen Concentration - - Weight 92.8 [...] A1C, B Routine 10/14/2023 11: 22 AM LINOTYPE MACHINIST Examination Test With Positive Result (HCC) HCV AB SCRN , S Routine 10/14/2023 11:22 AM LINOTYPE MACHINIST Examination Test With Positive Result (HCC) HIV-1/-2 AG AND AB SCRN, PLASMA Routine 10/14/2023 11:22 AM LINOTYPE MACHINIST Examination Test With Positive Result (HCC) HPV WITH GENOTYPING, PCR, THINPREP Routine 10/07/2023 2:43 PM LINOTYPE MACHINIST from Last 3 Months or Most Recently Relevant to Health Maintenance Results * Syphilis Total Antibody with Reflex, Serum (02/23/2024 11:58 AM CDT) Syphilis Total Ab w/ Reflex Nonreactive Nonreactive 02/24/2024 1:04 PM CDT [facility] Comment: No serologic evidence of infection with T. pallidum (syphilis). ??Repeat testing may be considered in patients with suspected acute or primary syphilis in 2-4 weeks. For additional information on interpretation of the syphilis reverse algorithm and results, see: [email or web address] Blood (Blood, Venous) 02/23/2024 11:58 AM CDT 02/24/2024 11:19 AM CDT Cami Adasm M.D. LAB BLOOD ADD-ON [facility] [address] [place] [address], [place] [address] * Glucose Tolerance Test, 1 hour (02/23/2024 11:58 AM CDT) Glucose Eliud, 1 Hr, P 183 <140 mg/dL 02/23/2024 6:12 PM CDT OWAT Blood (Blood, Venous) 02/23/2024 11:58 AM CDT 02/23/2024 5:37 PM CDT Cami Adams M.D. LAB BLOOD NON ADD-ON [facility] [address] [place] [address], [facility] OWAT [facility] [place] [address] [place] [address] * (ABNORMAL) CBC without Differential (02/23/2024 11:58 [...] CDT Cami Adams M.D. LAB BLOOD ADD-ON [facility] [address] [place] [address], [facility] [address]60 [facility] [place] [address] [place] [address] * US OB Growth Munguia (02/23/2024 10:39 [...] C Virus Antibody Screen (10/14/2023 11:22 AM LINOTYPE MACHINIST) HCV Ab Scrn , S Negative Negative 10/15/2023 9:05 AM LINOTYPE MACHINIST [facility] Comment:Brcrdc-fi-jamwaq rat io is <1.00. Blood (Blood, Venous) 10/14/2023 11:22 AM LINOTYPE MACHINIST 10/15/2023 7:43 AM LINOTYPE MACHINIST Neto Parson M.D. LAB MICROBIOLOGY - B LOOD ORDERABLES [facility] [address] [place] [address] [facility] [address] [place] [address] * HIV-1/-2 Ag and Ab Scrn, Plasma (10/14/2023 11:22 AM LINOTYPE MACHINIST) HIV Ag/Ab Scrn, P Negative Negative 10/15/2023 12:18 PM LINOTYPE MACHINIST [facility] Comment: Negative result does not rule out HIV infection. If exposure to HIV infection occurred <14 days ago, contact the laboratory to request addition of HIV-1/HIV-2 RNA detection , Plasma (HPP12). HIV-1 p24 Ag Scrn, P Negative Negative 10/15/2023 12:18 PM LINOTYPE MACHINIST [facility] Comment: Negative result does not rule out HIV infection. If exposure to HIV infection occurred <14 days ago, contact the laboratory to request addition of HIV-1/HIV-2 RNA detection , Plasma (HPP12). HIV-1 Ab Scrn, P Negative Negative 10/15/2023 12:18 PM LINOTYPE MACHINIST [facility] Comment: Negative result does not rule out HIV infection. If exposure to HIV infection occurred <14 days ago, contact the laboratory to request addition of HIV-1/HIV-2 RNA detection , Plasma (HPP12). HIV-2 Ab Scrn, P Negative Negative 10/15/2023 12:18 PM LINOTYPE MACHINIST [facility] Comment: Negative result does not rule out HIV infection. If exposure to HIV infection occurred <14 days ago, contact the laboratory to request addition of HIV-1/HIV-2 RNA detection , Plasma (HPP12). Blood (Blood, Venous) 10/14/2023 11:22 AM LINOTYPE MACHINIST 10/15/2023 10:34 AM LINOTYPE MACHINIST Neto Parson M.D. LAB MICROBIOLOGY - B LOOD ORDERABLES Performing Organization Address [facility]/ZIP Co de Phone Number [facility] [address] [place] [address], [facility] [place] [address] [place] [address] * Hemoglobin A1c (10/14/2023 11:22 AM LINOTYPE MACHINIST) Hemoglobin A1c, B 5.4 4.2 - 5.6 % 10/14/2023 1:38 PM LINOTYPE MACHINIST OWAT Blood (Blood, Venous) 10/14/2023 11:22 AM LINOTYPE MACHINIST 10/14/2023 12:37 PM LINOTYPE MACHINIST Neto Parson M.D. LAB BLOOD ADD-ON Performing Organization Address [facility] Co de Phone Number [facility] [address] [place] [address], [place] OW[place] [facility] [place] [address] [place] [address] * HPV with Genotyping, PCR, ThinPrep (10/07/2023 2:43 PM LINOTYPE MACHINIST) HPV with Genotyping, ThinPrep, PCR Negative Negative 10/08/2023 3:48 PM LINOTYPE MACHINIST [facility] Comment: Negative for high risk HPV [...] correlated with patient's history, clinical presentation, and CHAPERONE cytology report. 10/07/2023 2:43 PM LINOTYPE MACHINIST 10/08/2023 7:14 AM LINOTYPE MACHINIST Neto Parson M.D. LAB MICROBIOLOGY - G ENERAL ORDERABLES [facility] [address] [place] [address], [facility] [address] [address] from Last 3 Months or Most Recently Relevant to Health Maintenance
[2024-05-08] MEDS: ACETAMINOPHEN 500 MG TABLET 1000 MG PO ×2 (17:26→23:41)
[2024-05-09 02:58] VITALS: BP 131/80; PULSE 76; RESP 18; TEMP 36.9
[2024-05-09] MEDS: IBUPROFEN 600 MG TABLET PO ×2 (05:07→12:16)
[2024-05-09 06:44] LABS: Glucose Fasting 85 mg/dl (70-95)
--- NOTE | 2024-05-09 07:34 | PM.OBDSVD1 ---
DS: Providers Provider Date Seen: 05/09/24 Date of admission: 05/06/24 16:07 Primary care physician: Not a Local Provider Admitting Clinician: Angie Arceo MD Attending Physician on discharge: Anisha Keane CNM DS: Diagnosis Discharge Diagnosis (1) Status post tubal ligation: Status: Acute (2) care and examination immediately after delivery: Status: Acute (3) Gestational diabetes: Status: Acute (4) Hypertension: Status: Acute Exam Narrative: Exam Narrative: GENERAL APPEARANCE:? normal affect, alert, no distress MOOD:? appropriate CHEST:? clear to auscultation HEART:? regular rate and rhythm ABDOMEN:? soft, non-tender the uterine fundus is At Umbilicus, Midline and is appropriate for the stage of recovery. PERINEUM:? mild edema of the perineum. EXTREMITIES:? normal and no edema INCISION: Healing well, no surrounding erythema, abnormal induration or discharge. Glue visible. Some bruising at site. Const: Vital Signs, click to edit/add: Vital Signs - 24 hr 05/08/24 08:10 05/08/24 12:13 05/08/24 12:15 Temperature 98.3 F 97.6 F Pulse Rate 91 87 Pulse Rate [Blood Pressure Cuff] 82 Respiratory Rate 16 20 19 Blood Pressure 110/68 107/77 Blood Pressure [Ri ght Arm] 117/78 Pulse Oximetry 98 93 92 Oxygen Delivery Me thod Room Air Room Air 05/08/24 12:20 05/08/24 12:25 05/08/24 12:30 Temperature Pulse Rate 88 93 87 Pulse Rate [Blood Pressure Cuff] Respiratory Rate 22 20 16 Blood Pressure 108/64 112/73 109/71 Blood Pressure [Ri ght Arm] Pulse Oximetry 93 92 90 Oxygen Delivery Me thod Room Air 05/08/24 12:35 05/08/24 12:40 05/08/24 12:45 Temperature 97.8 F Pulse Rate 84 78 78 Pulse Rate [Blood Pressure Cuff] Respiratory Rate 19 17 16 Blood Pressure 112/88 113/73 113/78 Blood Pressure [Ri ght Arm] Pulse Oximetry 93 95 94 Oxygen Delivery Me thod Room Air 05/08/24 12:54 05/08/24 13:10 05/08/24 13:24 Temperature 97.9 F Pulse Rate 85 86 80 Pulse Rate [Blood Pressure Cuff] Respiratory Rate 16 16 16 Blood Pressure 115/77 116/74 119/82 Blood Pressure [Ri ght Arm] Pulse Oximetry 95 97 93 Oxygen Delivery Me thod Room Air Room Air Room Air 05/08/24 13:42 05/08/24 14:11 05/08/24 14:41 Temperature 98.1 F Pulse Rate 74 80 70 Pulse Rate [Blood Pressure Cuff] Respiratory Rate 16 16 16 Blood Pressure 114/77 123/82 129/82 Blood Pressure [Ri ght Arm] Pulse Oximetry 94 93 96 Oxygen Delivery Me thod Room Air Room Air Room Air 05/08/24 15:55 05/08/24 15:55 05/08/24 17:53 Temperature 97.9 F Pulse Rate Pulse Rate [Blood Pressure Cuff] 79 Respiratory Rate 16 Blood Pressure 132/84 126/76 Blood Pressure [Ri ght Arm] 132/84 Pulse Oximetry 98 Oxygen Delivery Me thod Room Air 05/08/24 19:05 05/08/24 20:24 05/08/24 23:40 Temperature 98.9 F 98.9 F Pulse Rate Pulse Rate [Blood Pressure Cuff] 80 88 Respiratory Rate 18 18 Blood Pressure 114/71 Blood Pressure [Ri ght Arm] 122/70 119/77 Pulse Oximetry 98 98 Oxygen Delivery Me thod Room Air Room Air 05/09/24 02:58 Temperature 98.5 F Pulse Rate Pulse Rate [Blood Pressure Cuff] 76 Respiratory Rate 18 Blood Pressure Blood Pressure [Ri ght Arm] 131/80 Pulse Oximetry Oxygen Delivery Me thod Room Air Documenting provider has reviewed patient's vital signs: yes OB - DS: Summary Hospital Course Hospital Course: Bela is a 38 y.o. G 5 P 5 who was admitted to [facility] for induction of labor for GDM diet controlled, CHTN, and AMA. ?She had a NVD that was complicated by 2 minute shoulder dystocia. She had a tubal yesterday morning. The patient feels well. ?The pain is well controlled with current medications. ?She has no new complaints. ?She is formula feeding. the patient has done well.? Vitals have been stable.? She has remained afebrile.? Has a good appetite, is tolerating a general diet. ?She is voiding without difficulty.? She is passing gas and has not had a bowel movement.? She is ambulating and denies any dizziness.? Has small amount of rubra lochia. Problems: mild anemia plan: Discharge home with baby. Follow up in 2 weeks and 6 weeks. , may see if needed Hgb 10.2. Iron supplement ordered orally every other day per patient preference CHTN. BP stable GDM. 2 hour glucose results pending this morning. Peripartum Data delivery method: Vaginal Laceration description: None Procedures: Procedures Operation Date: 05/08/24 11:30 Actual Procedure Side Surgeon p Post Bilateral salpingectomy Bilateral Marci B MD Shen Procedures: tubal ligation/salpingectomy complications: none Infant Gender: Male Discharge Plan: Home Status at Discharge Functional status at discharge: independent ambulation Overall status at discharge: patient is progressing back to baseline Time Spent with Patient Time attestation: Total time spent providing and/or coordinating discharge services: Time spent: Less than 30 minutes Discharge Plan Discharge Disposition: Home, Self-Care Date of Admission: 05/06/24 16:07 Attending Provider on Discharge: Anisha Keane Primary Care Provider: Provider,Not a Local Condition: Stable Anticipated Discharge Date/Time: 05/09/24 12:00 Discharge Medications: New docusate sodium 100 mg Capsule 100 mg PO BID PRN (Reason: constipation) Qty: 90 0RF ibuprofen 600 mg Tablet 600 mg PO Q6H PRNQty: 60 0RF ferrous sulfate 325 mg (65 mg iron) tablet,delayed release (DR/EC) 325 mg PO Q OTHER DAY Qty: 60 0RF acetaminophen 500 mg Tablet 1,000 mg PO Q6H PRNQty: 0 0RF Continued polyethylene glycol 3350 [Miralax] 17 gram/dose powder 4 g PO QDAY ferrous sulfate 325 mg (65 mg iron) tablet 325 mg PO QDAY magnesium gluconate 27 mg magnesium (500 mg) tablet 27 mg PO QDAY Classic 28 mg iron- 800 mcg tablet 1 tab PO QDAY sennosides-docusate sodium 8.6-50 mg tablet 1 tab-cap PO QDAY Qty: 30 0RF Discontinued aspirin [Adult Low Dose Aspirin] 81 mg tablet,delayed release (DR/EC) 81 mg PO QDAY (DME) Blood Glucose Meter Misc See Rx Instructions .Route Qty: 1 0RF Rx Instructions: As directed, test blood glucose 4 times daily (DME) Blood Glucose Test Strip See Rx Instructions .Route Qty: 100 3RF Rx Instructions: As directed, four times daily. (DME) lancets [Accu-Chek Softclix Lancets] Misc See Rx Instructions .Route Qty: 100 3RF Rx Instructions: As directed, four times daily. Discharge Orders: Discharge Order (Routine); Ordered 05/09/24 Ordered By: Anisha Keane Patient Education: OB Over the Counter Medication Information, OB Vaginal/Bottle Feeding Additional Instructions: Discharge instructions were reviewed with the patient including signs and symptoms of infection and home going medications Nothing vaginally for 6 weeks: no tampons or intercourse Off Work or School for 6 weeks 2-week visit: discuss infant feeding concerns, review control options and screen for anxiety/depression. 6-week visit for an annual exam. consultation services are available to all mothers and babies for the first year after delivery.? To make an appointment, please call [phone]. Activity Level: Activity as Tolerated Discharge Diet: Regular Follow Up Appointments: Provider,Not a Local [Primary Care Provider] - Forms: [address] [facility] Info Instructions
[2024-05-09 07:58] VITALS: BP 114/74; PULSE 81; RESP 20; TEMP 36.8; O2SAT 97
[2024-05-09] MEDS: ACETAMINOPHEN 500 MG TABLET 1000 MG PO (08:19)
[2024-05-09] MEDS: DOCUSATE SODIUM 100 MG CAPSULE PO (08:20)
[2024-05-09 08:41] LABS: Glucose 2 Hour 173 mg/dl (70-155)
[2024-05-09 13:57] VITALS: BP 119/76
[2024-05-10 04:30] LABS: Rapid Plasma Reagin (RPR) Non Reactive (Non Reactive)
== END 2024-05-09 14:16 | disposition home or self-care (01) | DRG 541 ==
PROVIDERS: Obstetrics & Gynecology; Admitting Provider Obstetrics & Gynecology; Visit Provider Obstetrics & Gynecology
PROC: 0UT70ZZ Resection of Bilateral Fallopian Tubes, Open Approach (ICD-10-PCS; CPT 58605; principal; 2024-05-08 11:20)
DX: O24.420 Gestational diabetes mellitus in childbirth, diet controlled (principal); O10.92 Unspecified pre-existing hypertension complicating childbirth; O66.0 Obstructed labor due to shoulder dystocia; Z30.2 Encounter for sterilization; Z3A.38 38 weeks gestation of pregnancy; Z37.0 Single live birth
CPT/HCPCS: 00851; 01967; 36415; 59200; 82947; 82950; 85018; 85025; 86592; 86850; 86900; 86901; 88302; 88307; G0463; A9270; J0330; J0665; J1100; J1630; J2270; J2371; J2405; J2704; J2795; J3010; J3490; J7120; S5010